=== PATIENT | male | born 1945 | race Two or more races ===

== ENCOUNTER 2020-08-03 | Outpatient (REF) | payer MEDICARE, MEDICAID, SELFPAY ==
[2020-08-04 14:48] LABS: FIT1 NEGATIVE (NEGATIVE)
[2020-08-04 14:49] LABS: FIT Int Ctl YES; FIT2 NEGATIVE (NEGATIVE)
== END 2020-08-03 00:01 | disposition home or self-care (01) ==
LOC: HO.LNP
PROVIDERS: Visit Provider Internal Medicine
DX: Z12.11 Encounter for screening for malignant neoplasm of colon (principal)
CPT/HCPCS: 82274

== ENCOUNTER 2020-08-04 08:30 | Outpatient (REF) | payer MEDICARE, MEDICAID, SELFPAY ==
[2020-08-04 11:20] LABS: MANUAL DIFF FLAG NO
[2020-08-04 11:28] LABS: Basophils Percent Auto 0.5 % (0-2); Eosinophils Absolute Auto 0.2 X10*3/uL (0.0-0.4); Eosinophils Percent Auto 4.2 % (0-4); Hematocrit 38.7 % (42-52); Hemoglobin 12.6 g/dl (14.0-18.0); Imm Gran Abs Auto 0.02 X10*3/uL (0.00-0.03); Imm Gran Pct Auto 0.4 % (0.0-0.4); Lymphocytes Absolute Auto 2.2 X10*3/uL (1.2-4.9); Mean Corpuscular HGB Conc 32.6 g/dl (31.0-36.0); Mean Corpuscular Hemoglobin 29.2 pg (27.0-33.0); Mean Corpuscular Volume 89.8 fL (80-98); Mean Platelet Volume 12.4 fL (9.4-12.4); Monocytes Absolute Auto 0.6 X10*3/uL (0.1-1.2); Monocytes Percent Auto 10.1 % (2-11); Neutrophils Absolute Auto 2.6 X10*3/uL (2.0-8.3); Neutrophils Percent Auto 45.8 % (45-73); Platelet Count 179 X10*3/uL (160-400); Red Blood Count 4.31 X10*6/uL (4.60-5.80); Red Cell Distribution Width 12.3 % (11.0-16.0); White Blood Count 5.7 X10*3/uL (4.8-10.8)
[2020-08-04 12:05] LABS: Creatinine Urine 72.37 mg/dL; Microalbumin Urine < 5.0 mg/L
[2020-08-04 12:08] LABS: Alanine Aminotransferase 14 U/L (0-40); Albumin Level 4.3 g/dL (3.5-5.0); Alkaline Phosphatase 51 U/L (39-117); Anion Gap 11 (12-20); Aspartate Amino Transferase 15 U/L (5-37); Bilirubin Total 0.6 mg/dL (0.0-1.0); Blood Urea Nitrogen 15 mg/dL (9-16); Calcium 9.7 mg/dL (8.4-10.2); Carbon Dioxide 31 mmol/L (22-29); Chloride 101 mmol/L (96-108); Cholesterol 158 mg/dL; Estimated Glomerular Filt Rate > 60; Glucose Fasting 102 mg/dL (60-99); HDL Cholesterol 74 mg/dL; LDL Cholesterol Calculated 73 mg/dl; Potassium 4.3 mmol/L (3.3-5.1); Sodium 139 mmol/L (135-145); Total Protein 7.2 g/dL (6.5-8.0); Triglycerides 58 mg/dL
[2020-08-04 12:09] LABS: TSH reflex Free T4 2.88 uIU/mL (0.32-4.0); Vitamin D 25-OH Total 27.2 ng/mL (>30)
[2020-08-04 12:38] LABS: Folate 10.7 ng/mL (> or = 4.0); Vitamin B12 < 146 pg/mL (200-900)
== END 2020-08-04 08:31 | disposition home or self-care (01) ==
LOC: HO.HMGCLDS 08:30
PROVIDERS: PCP Internal Medicine; Visit Provider Internal Medicine
DX: Z00.01 Encounter for general adult medical examination with abnormal findings (principal); G62.1 Alcoholic polyneuropathy; I10 Essential (primary) hypertension; E78.5 Hyperlipidemia, unspecified; I69.30 Unspecified sequelae of cerebral infarction; E11.9 Type 2 diabetes mellitus without complications
CPT/HCPCS: 36415; 80053; 80061; 82043; 82306; 82607; 82746; 84443; 85025

== ENCOUNTER 2020-08-05 13:03 | Emergency (ER) | payer MEDICARE, MEDICAID, SELFPAY ==
--- NOTE | ~2020-08-05 | XR_ITS ---
EXAMINATION: XR FOOT, LEFT CLINICAL INFORMATION: Atraumatic pain fifth metatarsal COMPARISON: Left foot 11/18/2018 TECHNIQUE: AP, lateral, and oblique views of the left foot. FINDINGS: The bones and soft tissues are normal aside from some generalized osteopenia. No fracture. Alignment is anatomic. Joint spaces are maintained. Extensive vascular calcifications are present. Compared to the study from 11/18/2018 is been no interval change. XR/XR foot LT min 3V IMPRESSION: No acute finding to account for the fifth metatarsal foot pain.
[2020-08-05 13:06] VITALS: BP 130/57; PULSE 75; RESP 18; TEMP 37.1; O2SAT 99; BMI 29.0
--- NOTE | 2020-08-05 13:32 | PC.NURSE ---
transported via , halfway staff at bedside, self transfered from wc to recliner, legs elevated, +pp
[2020-08-05] MEDS: traMADoL HCL 50 MG TABLET PO (14:13)
--- NOTE | 2020-08-05 14:20 | ED.EXTPRO ---
HPI - Extremity Problem General Chief complaint: Extremity Problem Stated complaint: foot pain Time Seen by Provider: 08/05/20 13:46 Source: patient and other (detention staff member) Mode of arrival: wheelchair Limitations: language barrier (Ukrainian speaking ) History of Present Illness HPI Narrative: 75yoM c PMHx of CVA with residual deficit, gait instability, alcohol induced follow neuropathy, type 2 diabetes, hypertension, dyslipidemia and Arthralgia presenting to the ED with complaints of acute on chronic left foot pain worse since last night despite taking his prescribed Mobic. Staff member at bedside reports that he had a cortisone injection a few months ago. Denies any fevers, chills or any other symptoms complaints or concerns at this time. MD Complaint: extremity pain Onset (ago): day(s) (Worse since last night) Pain Consistency: constant Location: left Quality: aching Radiation: none Relieving factors: nothing Associated symptoms: other (Weight-bearing) Related Data Home Medications Medication Instructions Recorded Confirmed COVID-19 vacc,mRNA(Pfizer)(PF) 30 ml IM 08/03/20 08/03/20 mcg/0.3 mL IM susp (EUA) acetaminophen 650 mg 650 mg PO Q8H 08/03/20 08/03/20 tablet,extended release dextromethorphan-guaifenesin 10 2 tab-cap PO Q6H PRN 08/03/20 08/03/20 mg-200 mg capsule finasteride 5 mg tablet 5 mg PO DAILY 08/03/20 08/03/20 magnesium hydroxide 400 mg/5 mL 1,200 mg PO DAILY PRN ml 08/03/20 08/03/20 oral suspension mirabegron 50 mg tablet,extended 50 mg PO DAILY 08/03/20 08/03/20 release 24 hr pen needle, diabetic 31 gauge x #50 ea 08/03/20 08/03/20 1/4 terazosin 10 mg capsule 10 mg PO DAILY 08/03/20 08/03/20 Previous Rx's Medication Instructions Recorded aspirin 81 mg tablet,delayed 81 mg PO QAM #28 tab 03/28/20 release meloxicam 7.5 mg tablet 7.5 mg PO DAILY PRN #30 tab 03/28/20 sennosides 8.6 mg tablet 17.2 mg PO BEDTIME PRN #56 tab 03/28/20 gabapentin 100 mg capsule 200 mg PO BEDTIME #56 cap 05/08/20 lisinopril 5 mg tablet 5 mg PO DAILY #28 tab 05/08/20 metformin 1,000 mg tablet 1,000 mg PO BID #56 tab 05/08/20 docusate sodium 100 mg capsule 200 mg PO QAM #56 cap 06/05/20 insulin degludec 100 unit/mL (3 38 unit SUBCUT QAM #15 ml 07/30/20 mL) subcutaneous pen atorvastatin 10 mg tablet 10 mg PO BEDTIME #28 tab 08/01/20 blood sugar diagnostic #100 ea 08/02/20 cephalexin 500 mg PO BID 10 Days #20 cap 08/05/20 doxycycline monohydrate 100 mg PO BID 10 Days #20 cap 08/05/20 tramadol 50 mg PO BID PRN #14 tab 08/05/20 Allergies Allergy/AdvReac Type Severity Reaction Status Date / Time No Known Allergies Allergy Verified 08/05/20 13:18 [No Known Allergies*] Review of Systems Review of Systems: Constitutional : No trauma, No Weight loss, No Fever, No Chills, ENT/Mouth : No Hearing loss, No Ear Pain, No Nasal Congestion, No Sinus Pain, No Hoarseness, No sore throat, No Rhinorrhea, No Swallowing Difficulty Cardiovascular : No Chest Pain, No SOB Respiratory : No Cough, No Dyspnea Gastrointestinal : No Nausea, No Vomiting, No Diarrhea, No abdominal Pain, No Hematochezia, No Melena Genitourinary : No Dysuria, No Urinary Frequency, No Hematuria, No Urinary or Bowel Incontinence/retention Musculoskeletal : + Joint pain, No Back pain, No neck pain, No joint stiffness, No joint swelling Skin : No Skin Lesions, No rash or signs of infection Neuro : No Weakness, No radiation, No Numbness, No Paresthesias, No headache, no loss of bowel or bladder incontinence, no saddle anesthesia, Focal weakness, No radiation Denies history of IV drug usage. Yes all other systems are reviewed and are negative PMFSH Past Medical History Attestation statement: The following information was validated with the patient. Medical History Alcohol-induced polyneuropathy Arthralgia Dyslipidemia Encounter for general adult medical examination with abnormal findings Essential hypertension Gait instability History of CVA with residual deficit Surgical History History of ventral hernia repair Hx of cholecystectomy Family History Family History Father Unknown family medical history Mother Unknown family medical history Social History Social History Alcohol intake: never Smoking Status: Never smoker Advance Directives: No Advance Directives Information Provided: Yes Physical Exam Vital Signs: Vital Signs: Last Vital Signs Temp 98.7 F 08/05/20 13:06 Pulse 75 08/05/20 13:06 Resp 18 08/05/20 13:06 BP 130/57 L 08/05/20 13:06 Pulse Ox 99 08/05/20 13:06 Body Mass Index 29.0 vital signs have been reviewed as normal and appeared to be correct. Blood pressure normal. Heart rate normal. Respiration rate normal. Temperature normal. Oxygen saturation normal. Appearance: Alert. Oriented X3. No acute distress. Head: Normal external exam. Normocephalic. Atraumatic. Eyes: PERRLA. EOMI. Conjunctiva and sclera normal. Eyelids normal. ENT: Pharynx normal. Uvula midline. Moist mucous membranes. Neck: Normal inspection. Neck supple. FROM. No adenopathy. No meningeal signs. CVS: Normal heart rate and rhythm. Pulses normal throughout. Respiratory: No respiratory distress. Painless inspiration. Back: No CVA tenderness. Full range of motion noted. Skin: Skin warm and dry. Normal skin color. Normal skin turgor. No rashes/lesions/lacerations noted. Extremities: To the 5th metatarsal/5th toe patient is noted to have moderate tenderness to palpation mild erythema. No fluctuance/induration/streaking/ecchymosis/abrasion/lacerations or foreign bodies noted. No lower extremity edema. No calf tenderness noted. Otherwise all other Extremities exhibit normal range of motion and nontender. Neuro: Oriented X 3. No motor deficit. No sensory deficit. Reflexes normal. Course Course Course Narrative: 2:30pm - 75yoM c PMHx of CVA with residual deficit, gait instability, alcohol induced follow neuropathy, type 2 diabetes, hypertension, dyslipidemia and Arthralgia presenting to the ED with complaints of acute on chronic left foot pain worse since last night despite taking his prescribed Mobic. Staff member at bedside. - on exam patient is ordered to have tenderness to palpation to left metatarsal/5th toe with mild erythema. No streaking/induration/fluctuance/foreign bodies/lacerations or abrasions noted. - x-ray obtained and revealed chronic changes no acute processes noted. - will DC home with antibiotics for possible cellulitis infection along with symptomatic treatment with tramadol and instructions return if any new or worsening symptoms or to follow up with primary care provider. Patient and staff at bedside understand and agree with plan. MDM - Extremity (Nontraumatic) Differential Diagnosis Differential diagnosis: Likely gout and cellulitis Medical Records Attestation: I reviewed the patient's medical records. Imaging Data Left foot x-ray: Attestation: I personally reviewed and interpreted this imaging study as follows: Radiologist's impression: FINDINGS: The bones and soft tissues are normal aside from some generalized osteopenia. No fracture. Alignment is anatomic. Joint spaces are maintained. Extensive vascular calcifications are present. Compared to the study from 11/18/2018 is been no interval change. XR/XR foot LT min 3V IMPRESSION: No acute finding to account for the fifth metatarsal foot pain. Discharge Plan Discharge Clinical Impression: Chronic pain in left foot, Cellulitis of foot, left Patient Disposition: Home, Self-Care Instructions: Cellulitis (ED) Prescriptions: New tramadol 50 mg tablet 50 mg PO BID PRN (Reason: pain) Qty: 14 RF: 0 doxycycline monohydrate 100 mg capsule 100 mg PO BID 10 Days Qty: 20 RF: 0 cephalexin 500 mg capsule 500 mg PO BID 10 Days Qty: 20 RF: 0 No Action aspirin 81 mg tablet,delayed release (DR/EC) 81 mg PO QAM Qty: 28 RF: 8 sennosides [senna] 8.6 mg tablet 17.2 mg PO BEDTIME PRN (Reason: constipation) Qty: 56 RF: 5 meloxicam 7.5 mg tablet 7.5 mg PO DAILY PRN (Reason: for joint pain) Qty: 30 RF: 2 metformin 1,000 mg tablet 1,000 mg PO BID Qty: 56 RF: 6 lisinopril 5 mg tablet 5 mg PO DAILY Qty: 28 RF: 8 gabapentin 100 mg capsule 200 mg PO BEDTIME Qty: 56 RF: 8 docusate sodium 100 mg capsule 200 mg PO QAM Qty: 56 RF: 8 insulin degludec [Tresiba FlexTouch U-100] 100 unit/mL (3 mL) insulin pen 38 unit subcut QAM Qty: 15 RF: 5 atorvastatin 10 mg tablet 10 mg PO BEDTIME Qty: 28 RF: 3 (DME) Contour Next Test Strips Strip See Rx Instructions .ROUTE .MEDSUPPLY Qty: 100 RF: 3 finasteride 5 mg tablet 5 mg PO DAILY RF: 0 terazosin 10 mg capsule 10 mg PO DAILY RF: 0 Myrbetriq 50 mg tablet extended release 24 hr 50 mg PO DAILY RF: 0 Dispop COVID-19 Vaccine (EUA) 30 mcg/0.3 mL suspension for reconstitution IM RF: 0 (DME) pen needle, diabetic 31 gauge x 1/4 needle See Rx Instructions ea .ROUTE .MEDSUPPLY Qty: 50 RF: 0 acetaminophen 650 mg tablet extended release 650 mg PO Q8H RF: 0 dextromethorphan-guaifenesin 10-200 mg capsule 2 tab-cap PO Q6H PRNRF: 0 magnesium hydroxide [[place] Milk of Magnesia] 400 mg/5 mL suspension 1,200 mg PO DAILY PRNRF: 0 Referrals: Nora Castillo MD [Primary Care Provider] - 2 days (Your PCP) Print Language: Upper Sorbian
== END 2020-08-05 14:51 | disposition home or self-care (01) ==
PROVIDERS: Emergency Provider Emergency Medicine Emergency Medical Services; PCP Internal Medicine
DX: G89.29 Other chronic pain (principal); M79.672 Pain in left foot; L03.116 Cellulitis of left lower limb; I10 Essential (primary) hypertension; Z86.73 Personal history of transient ischemic attack (TIA), and cerebral infarction without residual deficits
CPT/HCPCS: 73630; 99283

== ENCOUNTER 2020-11-01 08:32 | Outpatient (REF) | payer MEDICARE, MEDICAID, SELFPAY ==
[2020-11-01 11:18] LABS: MANUAL DIFF FLAG NO
[2020-11-01 11:37] LABS: Basophils Absolute Auto 0.1 X10*3/uL (0.0-0.2); Basophils Percent Auto 0.8 % (0-2); Eosinophils Absolute Auto 0.2 X10*3/uL (0.0-0.4); Eosinophils Percent Auto 2.5 % (0-4); Hematocrit 37.4 % (42-52); Imm Gran Abs Auto 0.03 X10*3/uL (0.00-0.03); Imm Gran Pct Auto 0.5 % (0.0-0.4); Lymphocytes Absolute Auto 1.3 X10*3/uL (1.2-4.9); Lymphocytes Percent Auto 20.8 % (20-40); Mean Corpuscular HGB Conc 32.1 g/dl (31.0-36.0); Mean Corpuscular Hemoglobin 29.2 pg (27.0-33.0); Monocytes Absolute Auto 0.5 X10*3/uL (0.1-1.2); Monocytes Percent Auto 7.9 % (2-11); Neutrophils Absolute Auto 4.3 X10*3/uL (2.0-8.3); Neutrophils Percent Auto 67.5 % (45-73); Platelet Count 185 X10*3/uL (160-400); Red Blood Count 4.11 X10*6/uL (4.60-5.80); Red Cell Distribution Width 12.8 % (11.0-16.0); White Blood Count 6.4 X10*3/uL (4.8-10.8)
[2020-11-01 12:01] LABS: Estimated Average Glucose 143 mg/dL; Hemoglobin A1c % 6.6 %
[2020-11-01 12:06] LABS: Alanine Aminotransferase 15 U/L (0-40); Aspartate Amino Transferase 14 U/L (5-37); Cholesterol 147 mg/dL; HDL Cholesterol 71 mg/dL; LDL Cholesterol Calculated 64 mg/dl; Triglycerides 60 mg/dL
[2020-11-01 12:27] LABS: Vitamin D 25-OH Total 70.9 ng/mL (>30)
[2020-11-01 12:30] LABS: Folate 9.1 ng/mL (> or = 4.0); Vitamin B12 192 pg/mL (200-900)
== END 2020-11-01 08:33 | disposition home or self-care (01) ==
LOC: HO.HMGCLDS 08:32
PROVIDERS: PCP Internal Medicine; Visit Provider Internal Medicine
DX: E53.8 Deficiency of other specified B group vitamins (principal); I10 Essential (primary) hypertension; E78.5 Hyperlipidemia, unspecified; E11.9 Type 2 diabetes mellitus without complications; E55.9 Vitamin D deficiency, unspecified
CPT/HCPCS: 36415; 80061; 82306; 82607; 82746; 83036; 84450; 84460; 85025

== ENCOUNTER 2021-03-13 07:35 | Outpatient (REF) | payer MEDICARE, MEDICAID, SELFPAY ==
[2021-03-13 11:36] LABS: MANUAL DIFF FLAG NO
[2021-03-13 11:50] LABS: Basophils Percent Auto 0.7 % (0-2); Eosinophils Absolute Auto 0.2 X10*3/uL (0.0-0.4); Hematocrit 35.1 % (42-52); Hemoglobin 11.4 g/dl (14.0-18.0); Imm Gran Abs Auto 0.03 X10*3/uL (0.00-0.03); Imm Gran Pct Auto 0.5 % (0.0-0.4); Lymphocytes Absolute Auto 2.1 X10*3/uL (1.2-4.9); Mean Corpuscular HGB Conc 32.5 g/dl (31.0-36.0); Mean Corpuscular Hemoglobin 29.2 pg (27.0-33.0); Mean Platelet Volume 11.9 fL (9.4-12.4); Monocytes Absolute Auto 0.6 X10*3/uL (0.1-1.2); Monocytes Percent Auto 11.1 % (2-11); Neutrophils Absolute Auto 2.8 X10*3/uL (2.0-8.3); Neutrophils Percent Auto 48.7 % (45-73); Platelet Count 197 X10*3/uL (160-400); Red Cell Distribution Width 12.4 % (11.0-16.0); White Blood Count 5.7 X10*3/uL (4.8-10.8)
[2021-03-13 12:40] LABS: Alanine Aminotransferase 9 U/L (0-40); Anion Gap 12 (12-20); Aspartate Amino Transferase 11 U/L (5-37); Blood Urea Nitrogen 14 mg/dL (9-16); Calcium 9.1 mg/dL (8.4-10.2); Carbon Dioxide 27 mmol/L (22-29); Chloride 106 mmol/L (96-108); Cholesterol 138 mg/dL; Estimated Glomerular Filt Rate > 60; Glucose Fasting 76 mg/dL (60-99); HDL Cholesterol 63 mg/dL; Iron 43 mcg/dL (45-160); LDL Cholesterol Calculated 66 mg/dl; Percent Iron Saturation 16 % (15-50); Potassium 4.4 mmol/L (3.3-5.1); Sodium 141 mmol/L (135-145); Total Iron Binding Capacity 275 mcg/dL (228-428); Triglycerides 49 mg/dL; Unsaturated Iron Binding 232 ug/dL
[2021-03-13 13:01] LABS: Vitamin B12 163 pg/mL (200-900)
== END 2021-03-13 07:36 | disposition home or self-care (01) ==
LOC: HO.HMGCLDS 07:35
PROVIDERS: PCP Internal Medicine; Visit Provider Internal Medicine
DX: D64.9 Anemia, unspecified (principal); E11.9 Type 2 diabetes mellitus without complications; E53.8 Deficiency of other specified B group vitamins; E78.5 Hyperlipidemia, unspecified; G62.1 Alcoholic polyneuropathy; I10 Essential (primary) hypertension
CPT/HCPCS: 36415; 80048; 80061; 82607; 82746; 83540; 84450; 84460; 85025

== ENCOUNTER 2021-08-21 08:25 | Outpatient (REF) | payer MEDICARE, MEDICAID, SELFPAY ==
[2021-08-21 11:31] LABS: MANUAL DIFF FLAG NO
[2021-08-21 11:56] LABS: Basophils Percent Auto 0.8 % (0-2); Eosinophils Absolute Auto 0.2 X10*3/uL (0.0-0.4); Eosinophils Percent Auto 4.2 % (0-4); Estimated Average Glucose 151 mg/dL; Hematocrit 38.2 % (42.0-52.0); Hemoglobin 12.4 g/dl (14.0-18.0); Hemoglobin A1c % 6.9 %; Imm Gran Abs Auto 0.02 X10*3/uL (0.00-0.03); Imm Gran Pct Auto 0.4 % (0.0-0.4); Lymphocytes Percent Auto 37.5 % (20-40); Mean Corpuscular HGB Conc 32.5 g/dl (31.0-36.0); Mean Corpuscular Hemoglobin 29.5 pg (27.0-33.0); Mean Corpuscular Volume 90.7 fL (80.0-98.0); Mean Platelet Volume 12.3 fL (9.4-12.4); Monocytes Absolute Auto 0.5 X10*3/uL (0.1-1.2); Monocytes Percent Auto 10.2 % (2-11); Neutrophils Absolute Auto 2.4 x10*3/uL (2.0-8.3); Neutrophils Percent Auto 46.9 % (45-73); Platelet Count 162 X10*3/uL (160-400); Red Blood Count 4.21 X10*6/uL (4.60-5.80); Red Cell Distribution Width 12.8 % (11.0-16.0); White Blood Count 5.2 X10*3/uL (4.8-10.8)
[2021-08-21 12:00] LABS: Alanine Aminotransferase 11 U/L (0-40); Anion Gap 17 (12-20); Aspartate Amino Transferase 16 U/L (5-37); Blood Urea Nitrogen 13 mg/dL (9-16); Calcium 9.9 mg/dL (8.4-10.2); Carbon Dioxide 26 mmol/L (22-29); Chloride 101 mmol/L (96-108); Cholesterol 145 mg/dL; Estimated Glomerular Filt Rate > 60; Glucose Fasting 101 mg/dL (60-99); HDL Cholesterol 69 mg/dL; Iron 72 mcg/dL (45-160); LDL Cholesterol Calculated 65 mg/dl; Percent Iron Saturation 22 % (15-50); Potassium 4.6 mmol/L (3.3-5.1); Sodium 139 mmol/L (135-145); Total Iron Binding Capacity 326 mcg/dL (228-428); Triglycerides 56 mg/dL; Unsaturated Iron Binding 254 ug/dL
[2021-08-21 12:02] LABS: Microalbumin Urine < 5.0 mg/L
[2021-08-21 12:14] LABS: Vitamin D 25-OH Total 61.7 ng/mL (>30)
[2021-08-21 12:42] LABS: Folate 8.9 ng/mL (> or = 4.0); Vitamin B12 172 pg/mL (200-900)
== END 2021-08-21 08:26 | disposition home or self-care (01) ==
LOC: HO.HMGCLDS 08:25
PROVIDERS: Visit Provider Internal Medicine
DX: D64.9 Anemia, unspecified (principal); E55.9 Vitamin D deficiency, unspecified; E53.8 Deficiency of other specified B group vitamins; G62.1 Alcoholic polyneuropathy; I10 Essential (primary) hypertension; E11.9 Type 2 diabetes mellitus without complications
CPT/HCPCS: 36415; 80048; 80061; 82043; 82306; 82607; 82746; 83036; 83540; 84450; 84460; 85025

== ENCOUNTER 2021-12-12 11:35 | Outpatient (REF) | payer MEDICARE, MEDICAID, SELFPAY ==
--- NOTE | ~2021-12-12 | XR_ITS ---
EXAMINATION: RIGHT HAND AND WRIST X-RAY CLINICAL INFORMATION: Pain COMPARISON: None TECHNIQUE: 3 views of the right hand and wrist FINDINGS: No acute fracture or dislocation is seen. There is evidence of an old healed fracture of the fifth metacarpal bone and proximal phalanx. The joint spaces are normal. There is soft tissue arterial calcification. XR/XR hand wrist RT IMPRESSION: Old trauma to the fifth finger otherwise unremarkable exam.
== END 2021-12-12 11:36 | disposition home or self-care (01) ==
LOC: HO.HMGCX 11:35
PROVIDERS: Visit Provider Internal Medicine
DX: M25.531 Pain in right wrist (principal); M25.431 Effusion, right wrist
CPT/HCPCS: 73110; 73130

== ENCOUNTER 2022-03-27 13:38 | Outpatient (AMB) | payer MEDICARE, MEDICAID, SELFPAY ==
--- NOTE | 2022-03-25 11:15 | A.OFFVIS_ITS ---
Intake Intake Visit Reasons: Follow up PVR / NS last appt Intake Note: Patient is present for PVR Follow Up Current Medication: Finasteride, Myrbetriq, Terazosin Blood Thinners: Aspirin Post Void Residual: 0ml Patient was unable to provide specimen Rn Eligibility Required: No Accompanied by: Self / Same As Patient Allergies No Known Allergies [No Known Allergies*] Allergy (Verified 05/13/23 13:17) Medication List - Last Reconciled 03/27/22 by Miles Sims MD acetaminophen ER ([place] Arthritis Pain) 650 mg PO Q8H aspirin 81 mg PO QAM atorvastatin 10 mg PO BEDTIME blood sugar diagnostic (Contour Next Test Strips) use one strip twice a day to check blood sugar before meals cholecalciferol (vitamin D3) 50 mcg PO DAILY COVID-19 vacc,mRNA(Pfizer)(PF) mL IM cyanocobalamin (vitamin B-12) 1,000 mcg IM Q4W 30 days dextromethorphan-guaifenesin 10-200 mg 2 tab-caps (2 x 10-200 mg) PO Q6H PRN docusate sodium 200 mg (2 x 100 mg) PO QAM finasteride 5 mg PO DAILY 30 days gabapentin 600 mg PO BID indomethacin 25 mg PO BID PRN insulin degludec (Tresiba FlexTouch U-200 insulin) 38 units (0.19 mL) subcut QAM lisinopril 5 mg PO DAILY magnesium hydroxide ([place] Milk of Magnesia) 1,200 mg (15 mL) PO DAILY PRN meloxicam 7.5 mg PO DAILY metformin 1,000 mg PO BID 30 days mirabegron ER 50 mg PO DAILY 30 days pen needle, diabetic As directed sennosides (senna) 17.2 mg (2 x 8.6 mg) PO BEDTIME PRN sulfamethoxazole-trimethoprim 800-160 mg (Bactrim DS) 1 tab PO BID 7 days terazosin 10 mg PO DAILY 30 days HPI HPI Comments History of Present Illness Details Jose has a pleasant male. He is a patient of Dr. Castillo. Seen for the following urologic conditions - overactive bladder - incomplete bladder emptying BPH Resident of facility PVR 0 Bladder control Has urinary urge but able to make bathroom Occasional accidents Continue Myrbetriq, finasteride, terazosin Lower urinary tract symptoms - primarily overactive bladder with incomplete emptying Current medications include finasteride and Myrbetriq and terazosin Background insulin-dependent diabetes 0 HB A1c - 02/12 7.4% [facility] Medical History (Updated 06/17/23 @ 02:16 by Nora Castillo MD) Moderate to severe aortic stenosis Systolic murmur Diabetes mellitus, with long-term current use of insulin Impaired cognitive ability Anemia Nocturia Urinary urgency Acute cystitis without hematuria Weak urinary stream Incomplete emptying of bladder Vitamin D deficiency Encounter for general adult medical examination with abnormal findings Gait instability Alcohol-induced polyneuropathy Arthralgia Essential hypertension Dyslipidemia History of CVA with residual deficit Surgical History History of ventral hernia repair Hx of cholecystectomy Family History Father Unknown family medical history Mother Unknown family medical history Social History Housing: Assisted Living Facility Alcohol intake: never Patient Tobacco Use Status: Never used Tobacco e-Cigarette/Vaping Use: Never Used Second Hand Smoke Exposure: No Current occupational status: disabled Cognitive needs: No Hearing needs: Yes Vision needs: Yes Review of Systems Const Denies chills and Denies fever(s) Card Reports no additional complaints and Denies syncope Resp Denies cough GI Denies abdominal pain and Denies heartburn Reports as per HPI and Denies change in libido Neuro Denies syncope Psych Denies change in libido Endo Denies change in libido Physical Exam Const General: cooperative, healthy appearing, comfortable and no acute distress Orientation/consciousness: patient oriented x3 HEENT Face and sinus: Yes normal facial exam Mouth: moist mucous membranes Neck Neck: Yes normal visual inspection, Yes full ROM and Yes trachea midline Chest Chest palpation & inspection: normal inspection of the chest Resp Effort & Inspection: normal respiratory effort, able to speak in complete sentences and no respiratory distress GI Inspection: Yes normal to inspection Back/Spine/Pelvis Cervical Spine: normal cervical lordosis Thoracic/Lumbar Spine: thoracic and lumbar spine normal to inspection Skin General skin exam: no rashes or lesions noted Neuro General: patient oriented x3, gait normal, tone normal and moves all extremities Extrem General: Yes normal to inspection and Yes capillary refill normal Office Procedures Post Void Residual Post Residual Void Post Void Residual (PVR): 0 [id number]-[id number] Void Residual by ultrasound Assessment & Plan Assessment & Plan (1) Overactive bladder: Code(s): N32.81 - Overactive bladder (2) Incomplete emptying of bladder: Code(s): R33.9 - Retention of urine, unspecified (3) Nocturia: Code(s): R35.1 - Nocturia Plan Medications refilled 1 year follow-up Orders: Orders AMB Post Void Residual by ultrasound 03/27/22 R35.1 - Nocturia Medications: Changed From finasteride 5 mg PO DAILY 30 days 30 tabs 2RF To finasteride 5 mg PO DAILY 90 tabs 3RF 90 days From mirabegron ER 50 mg PO DAILY 30 days 30 tabs 2RF To mirabegron ER 50 mg PO DAILY 90 tabs 3RF 90 days From terazosin 10 mg PO DAILY 30 days 30 caps 2RF To terazosin 10 mg PO DAILY 90 caps 3RF 90 days Patient Instructions: The patient had an opportunity to ask questions regarding treatment plan. All questions were answered. Imaging studies, laboratory studies and physical exam results were discussed and reviewed in detail. No major barriers to understanding were identified. The patient expressed understanding and agreement with the above treatment plan. The patient is aware they should contact our office by phone for worsening of their current condition or the appearance of new symptoms. Compliance is encouraged with any medications and followup testing that is ordered. It is a privilege to be allowed the opportunity to participate in the urologic care of your patient. If you have any questions or concerns regarding treatment for the above conditions please do not hesitate to contact me. The office telephone contact is [phone]. This note is constructed using voice recognition software. While every effort has been made to ensure accuracy single needle tufting machine operator errors may have been included. Yours sincerely, Dr Miles Sims MD, [facility] Coding Level of Care Code Est Pt Level 4 (30397) Diagnoses Overactive bladder N32.81 Incomplete emptying of bladder R33.9 Nocturia R35.1 CPT Codes Post Residual Void - PVR CPT Code: 01122-Wmis Void Residual by ultrasound ([id number])
== END 2022-03-27 14:50 | disposition home or self-care (01) ==
LOC: HO.HUSH 13:38
PROVIDERS: PCP Internal Medicine; Visit Provider Urology
DX: N32.81 Overactive bladder (principal); R33.9 Retention of urine, unspecified; R35.1 Nocturia
CPT/HCPCS: 99214; 99499

== ENCOUNTER → 2022-03-27 13:38 | Outpatient (BNVA) | payer MEDICARE, MEDICAID, SELFPAY | PROVIDERS: PCP Internal Medicine; Visit Provider Urology | DX: Z13.89 Encounter for screening for other disorder (principal) | CPT/HCPCS: 51798; 99212 ==

== ENCOUNTER 2022-06-03 10:16 | Outpatient (REF) | payer MEDICARE, MEDICAID, SELFPAY ==
[2022-06-03 11:35] LABS: Estimated Average Glucose 183 mg/dL
[2022-06-03 12:29] LABS: Alanine Aminotransferase 14 U/L (0-40); Anion Gap 12 (12-20); Aspartate Amino Transferase 18 U/L (5-37); Blood Urea Nitrogen 12 mg/dL (9-16); Calcium 9.5 mg/dL (8.4-10.2); Carbon Dioxide 28 mmol/L (22-29); Chloride 102 mmol/L (96-108); Cholesterol 141 mg/dL; Estimated Glomerular Filt Rate > 60; Glucose Fasting 97 mg/dL (60-99); HDL Cholesterol 62 mg/dL; LDL Cholesterol Calculated 62 mg/dl; Potassium 4.7 mmol/L (3.3-5.1); Sodium 137 mmol/L (135-145); Triglycerides 85 mg/dL; Vitamin D 25-OH Total 51.8 ng/mL (>30)
[2022-06-03 12:37] LABS: Folate 15.8 ng/mL (> or = 4.0); Vitamin B12 242 pg/mL (200-900)
[2022-06-03 14:53] LABS: Creatinine Urine 123.05 mg/dL
== END 2022-06-03 10:17 | disposition home or self-care (01) ==
LOC: HO.HMGCLDS 10:16
PROVIDERS: PCP Internal Medicine; Visit Provider Internal Medicine
DX: E11.9 Type 2 diabetes mellitus without complications (principal); E53.8 Deficiency of other specified B group vitamins; E55.9 Vitamin D deficiency, unspecified; E78.5 Hyperlipidemia, unspecified; G62.1 Alcoholic polyneuropathy; I10 Essential (primary) hypertension; I69.30 Unspecified sequelae of cerebral infarction; R26.81 Unsteadiness on feet
CPT/HCPCS: 36415; 80048; 80061; 82043; 82306; 82607; 82746; 83036; 84450; 84460

== ENCOUNTER 2022-06-04 10:40 | Outpatient (AMB) | payer MEDICARE, MEDICAID, SELFPAY ==
--- NOTE | 2022-06-04 10:43 | A.OFFPC_ITS ---
Vital Signs 06/04/22 10:47 Height 5 ft 7 in Weight 193 lb BMI 30.2 BP 132/68 Blood Pressure Location Rt brachial Position Sitting Pulse 64 Pulse Source Pulse Oximeter Pulse Oximetry (%) 99 Oxygen Delivery Method Room Air Intake Visit Reasons: 6 month f/u Intake Note: Pt is here today for his 6 months f/u Allergies No Known Allergies [No Known Allergies*] Allergy (Verified 02/07/23 12:39) Medication List - Last Reconciled 06/04/22 by Nora Castillo MD aspirin 81 mg PO QAM atorvastatin 10 mg PO BEDTIME blood sugar diagnostic (Contour Next Test Strips) use one strip twice a day to check blood sugar before meals cholecalciferol (vitamin D3) 50 mcg PO DAILY cyanocobalamin (vitamin B-12) 1,000 mcg IM Q4W 30 days dextromethorphan-guaifenesin 10-200 mg 2 tab-caps (2 x 10-200 mg) PO Q6H PRN docusate sodium 200 mg (2 x 100 mg) PO QAM finasteride 5 mg PO DAILY 90 days gabapentin 600 mg PO BID insulin degludec (Tresiba FlexTouch U-200 insulin) 38 units (0.19 mL) subcut QAM lisinopril 5 mg PO DAILY magnesium hydroxide ([place] Milk of Magnesia) 1,200 mg (15 mL) PO DAILY PRN meloxicam 7.5 mg PO DAILY metformin 1,000 mg PO BID 30 days mirabegron ER 50 mg PO DAILY 90 days pen needle, diabetic As directed sennosides (senna) 17.2 mg (2 x 8.6 mg) PO BEDTIME PRN terazosin 10 mg PO DAILY 90 days Tobacco use date assessed: 06/04/22 Fall risk assessment: No Falls in past year Last assessed Fall Risk: 06/04/22 HPI 6 month f/u HPI Details 76-year-old male with dyslipidemia, diabetes mellitus, alcohol-induced polyneuropathy, history of overactive bladder and history of CVA with residual deficit, here today for six-month follow-up he currently lives in a assisted, has medications administered by a nurse. Has not been fully compliant with diet and no exercise at all due to gait stations and week in lower extremities. Re cent fasting labs showed normal electrolytes, lipid levels, vitamin-D level and liver enzymes but hemoglobin A1c is elevated at 8% [facility] Medical History (Updated 02/07/23 @ 12:48 by Nora Castillo MD) Acute cystitis without hematuria Alcohol-induced polyneuropathy Anemia Arthralgia Diabetes mellitus, with long-term current use of insulin Dyslipidemia Encounter for general adult medical examination with abnormal findings Essential hypertension Gait instability History of CVA with residual deficit Impaired cognitive ability Incomplete emptying of bladder Nocturia Urinary urgency Vitamin D deficiency Weak urinary stream Surgical History History of ventral hernia repair Hx of cholecystectomy Family History Father Unknown family medical history Mother Unknown family medical history Social History Housing: Assisted Living Facility Alcohol intake: never Patient Tobacco Use Status: Never used Tobacco e-Cigarette/Vaping Use: Never Used Second Hand Smoke Exposure: No Current occupational status: disabled Cognitive needs: No Hearing needs: Yes Vision needs: Yes Questionnaire Thrive Questionnaire Date Thrive assessed: 12/04/21 MEERA-7 AMB Questionnaire MEERA-7 Date MEERA - 7 assessed: 12/04/21 Source: Developed by Drs. Thierry Vela, Enriqueta Mosley, Isaías Mccloud and colleagues, with an educational hitesh from [employer]. Review of Systems Const Reports no additional complaints and Denies fever(s) Eyes Reports no additional complaints ENT Reports no additional complaints Card Denies chest pain, Denies syncope, Denies palpitations and Denies dyspnea Resp Denies chest congestion, Denies cough, Denies dyspnea and Denies wheezing GI Denies abdominal pain, Denies change in bowel habits and Denies heartburn Reports no additional complaints Musc Denies deformity, Reports muscle weakness ( bilateral legs) and Reports stiffness Skin/Breast Denies new lesions and Denies rash Neuro Reports no additional complaints, Reports as per HPI, Reports Abnormal speech present and Denies syncope Endo Denies polydipsia, Denies polyuria and Denies palpitations Alen/Lymph Denies easy bruising Aller/Immun Denies seasonal rhinorrhea and Denies wheezing Physical exam (Primary Care) Vital Signs: Last Vital Signs Pulse 64 06/04/22 10:47 BP 132/68 06/04/22 10:47 Pulse Ox 99 06/04/22 10:47 Oxygen Delivery Method Room Air 06/04/22 10:47 BMI result Body Mass Index 30.2 Tobacco/Smoking Status: Tobacco use Status Tobacco use date assessed 06/04/22 06/04/22 10:46 Patient Tobacco Use Status Never used Tobacco 06/04/22 10:46 e-Cigarette/Vaping Use Never Used 06/04/22 10:46 Thrive Assessment: Date of Thrive Assessment Date Thrive assessed 12/04/21 06/04/22 10:46 Advance Care Planning discussion: Exists, not on file Const Other: Awake, able to answer simple questions, has garbled speech, accompanied by caregiver, wheelchair borne General: comfortable, no acute distress and other (Wheelchair borne, stands for short amounts of time with assistance) Nutritional Appearance: obese Limitations: language barrier (Garbled speech), physical limitations and wheelchair HENMT Head: Yes normocephalic Ears: external ears normal General nose exam: Normal external nose present Face and sinus: Yes face symmetric Mouth: Normal oral and palatal mucosa present Teeth and gingiva: edentulous Eyes General: appearance normal, both eyes and all related structures Neck Neck: Yes full ROM, Yes no lymphadenopathy and Yes supple Resp Effort & Inspection: normal respiratory effort Auscultation: clear to auscultation bilaterally Cardio Rate: regular rate Rhythm: regular rhythm Heart sounds: S1 normal heart sound present and S2 normal heart sound present GI Inspection: Yes obesity Palpation (GI): Soft to palpation, nontender, no guarding and no masses Auscultation: normal bowel sounds General: Yes no CVA tenderness Back/Spine/Pelvis Back: no CVA tenderness Skin General skin exam: no rashes or lesions noted Neuro General: CN's II-XI intact bilaterally Speech: Abnormal speech present Gait exam (Neuro): Assisted gait required Gait assisted method: wheelchair bound Extrem Other: No gross bone deformity, crepitus noted in both knees Results Reviewed Results Reviewed: ENTERED: 06/03/22-1020 KEE HURD: ORDERED: Met Prof Fast, AST, ALT, Lipid Panel, Vitamin D 25-OH Test Result Flag Reference Site Sodium 137 135-145 mmol/L Potassium 4.7 3.3-5.1 mmol/L CL 102 96-108 mmol/L CO2 28 22-29 mmol/L Gap 12 12-20 BUN 12 9-16 mg/dL Creat 1.13 0.5-1.4 mg/dL EGFR > 60 NOTE: For -[place] individuals, multiply the result by 1.210. Chronic Kidney Disease: Estimated GFR < 60 mL/min/1.73m2 Severe Kidney Disease: Estimated GFR < 15 mL/min/1.73m2 FBS 97 60-99 mg/dL CA 9.5 8.4-10.2 mg/dL AST (GOT) 18 5-37 U/L ALT (GPT) 14 0-40 U/L Triglyceride 85 mg/dL Desirable Triglyceride: less than 150 mg/dL Borderline High Triglyceride 150-199 mg/dL High Triglyceride: 200-499 mg/dL Very High Triglyceride: greater than or equal to 5OO mg/dL Chol 141 mg/dL Desirable Cholesterol: less than 200 mg/dL Borderline High Cholesterol: 200-239 mg/dL High Cholesterol: greater than 239 mg/dL LDL Calculated 62 mg/dl Desirable LDL: less than 100 mg/dL Near Optimal/Above Optimal LDL: 110-129 mg/dL Borderline High LDL: 130-159 mg/dL High LDL: 160-189 mg/dL Very High LDL: greater than or equal to 190 mg/dL HDL 62 mg/dL Desirable HDL: greater than 40 mg/dL Note: This HDL assay may give artificially low results in patients with liver disease. Vit D 25-OH Tot 51.8 >30 ng/mL Health Based Reference Values* < 20 ng/mL Deficient 20-30 ng/mL Insufficient > 30 ng/mL Sufficient Laboratory Tests 06/03/22 06/03/22 10:22 12:00 Estimat Average Glucose 183 Hemoglobin A1c % 8.0 Urine Creatinine 123.05 Urine Microalbumin 16.0 Microalb/Creat Ratio 13.0 Assessment and Plan Assessment & Plan (1) Type 2 diabetes mellitus with hyperglycemia: Code(s): E11.65 - Type 2 diabetes mellitus with hyperglycemia Plan: Recent lab results reviewed with patient, with sugar and hemoglobin A1c not at goal. Advised to continue to check fasting blood sugar at home, maintain log and bring to next appointment for review. Increased Tresiba dose to 42 units daily in a.m. continue a continue with metformin a 1000 mg twice a day. Reinforced diabetic diet and regular exercise with patient. Counseled regarding importance of yearly diabetes retinopathy screening. Patient advised to inspect feet daily, for any signs of injury, callus or infection. Compliance with diet and regular exercise again stressed. Blood pressure goal is less than 130/80, goal LDL is less than 100 and goal hemoglobin A1c is less than 7% follow-up appointment made in-3--months, after fasting labs done. (2) Dyslipidemia: Code(s): E78.5 - Hyperlipidemia, unspecified Plan: Reviewed recent fasting lipid profile with patient with levels within normal limits . Continue with atorvastatin 10 mg daily , in addition to adherence to low-cholesterol diet and regular exercise, at least 30 minutes 3 to 4 times a week. Advised patient to make healthy food choices, eat more fruits, vegetables, whole grains, wild caught fish and low-fat dairy. Limit amount of meat and fried or fatty food products, as well as processed foods and fast foods. Follow-up scheduled with repeat fasting lipid panel in 3 months. (3) Essential hypertension: Code(s): I10 - Essential (primary) hypertension Plan: Blood pressure stable controlled on lisinopril, (4) History of CVA with residual deficit: Code(s): I69.30 - Unspecified sequelae of cerebral infarction Plan: Continue aspirin 81 mg daily Orders: Orders Alanine Aminotransferase 3 Months E11.65 - Type 2 diabetes mellitus with hyperglycemia, E55.9 - Vitamin D deficiency, unspecified, E53.8 - Deficiency of other specified B group vitamins, I10 - Essential (primary) hypertension, E78.5 - Hyperlipidemia, unspecified Aspartate Amino Transferase 3 Months E11.65 - Type 2 diabetes mellitus with hyperglycemia, E55.9 - Vitamin D deficiency, unspecified, E53.8 - Deficiency of other specified B group vitamins, I10 - Essential (primary) hypertension, E78.5 - Hyperlipidemia, unspecified Vitamin B12 and Folate 3 Months E11.65 - Type 2 diabetes mellitus with hyperglycemia, E55.9 - Vitamin D deficiency, unspecified, E53.8 - Deficiency of other specified B group vitamins, I10 - Essential (primary) hypertension, E78.5 - Hyperlipidemia, unspecified Basic Metabolic Panel Fasting 3 Months E11.65 - Type 2 diabetes mellitus with hyperglycemia, E55.9 - Vitamin D deficiency, unspecified, E53.8 - Deficiency of other specified B group vitamins, I10 - Essential (primary) hypertension, E78.5 - Hyperlipidemia, unspecified Hemoglobin A1c 3 Months E11.65 - Type 2 diabetes mellitus with hyperglycemia, E55.9 - Vitamin D deficiency, unspecified, E53.8 - Deficiency of other specified B group vitamins, I10 - Essential (primary) hypertension, E78.5 - Hyperlipidemia, unspecified Lipid Panel 3 Months E11.65 - Type 2 diabetes mellitus with hyperglycemia, E55.9 - Vitamin D deficiency, unspecified, E53.8 - Deficiency of other specified B group vitamins, I10 - Essential (primary) hypertension, E78.5 - Hyperlipidemia, unspecified Vitamin D 25-OH Total 3 Months E11.65 - Type 2 diabetes mellitus with hyperglycemia, E55.9 - Vitamin D deficiency, unspecified, E53.8 - Deficiency of other specified B group vitamins, I10 - Essential (primary) hypertension, E78.5 - Hyperlipidemia, unspecified Microalbumin, Random (w Creat) 3 Months E11.65 - Type 2 diabetes mellitus with hyperglycemia, E55.9 - Vitamin D deficiency, unspecified, E53.8 - Deficiency of other specified B group vitamins, I10 - Essential (primary) hypertension, E78.5 - Hyperlipidemia, unspecified Coding Level of Care Code Est Pt Level 4 (44016) Diagnoses Type 2 diabetes mellitus with hyperglycemia E11.65 Dyslipidemia E78.5 Essential hypertension I10 History of CVA with residual deficit I69.30 Additional Codes Vital Signs *Quality* - Advance Care Planning discussion: Exists, not on file ([id number])
[2022-06-04 10:47] VITALS: BP 132/68; PULSE 64; O2SAT 99; BMI 30.2
== END 2022-06-04 11:26 | disposition home or self-care (01) ==
LOC: HO.HMGC 10:40
PROVIDERS: PCP Internal Medicine; Visit Provider Internal Medicine
DX: E11.65 Type 2 diabetes mellitus with hyperglycemia (principal); E78.5 Hyperlipidemia, unspecified; I10 Essential (primary) hypertension; I69.30 Unspecified sequelae of cerebral infarction; Z00.00 Encounter for general adult medical examination without abnormal findings
CPT/HCPCS: 1123F; 99214

== ENCOUNTER 2022-08-13 15:38 | Outpatient (AMB) | payer MEDICARE, MEDICAID, SELFPAY ==
--- NOTE | 2022-08-13 15:32 | A.OFFPC_ITS ---
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/[facility] Site Coord Intake Note: Pt is having a telehealth visit with [facility] coordnator to discuss paperworkl [phone] I phone Allergies No Known Allergies [No Known Allergies*] Allergy (Verified 02/07/23 12:39) Medication List - Last Reconciled 08/13/22 by Nora Castillo MD aspirin 81 mg PO QAM atorvastatin 10 mg PO BEDTIME blood sugar diagnostic (Contour Next Test Strips) use one strip twice a day to check blood sugar before meals cholecalciferol (vitamin D3) 50 mcg PO DAILY cyanocobalamin (vitamin B-12) 1,000 mcg IM Q4W 30 days dextromethorphan-guaifenesin 10-200 mg 2 tab-caps (2 x 10-200 mg) PO Q6H PRN docusate sodium 200 mg (2 x 100 mg) PO QAM finasteride 5 mg PO DAILY 90 days gabapentin 600 mg PO BID insulin degludec (Tresiba FlexTouch U-200 insulin) 38 units (0.19 mL) subcut QAM lisinopril 5 mg PO DAILY magnesium hydroxide ([place] Milk of Magnesia) 1,200 mg (15 mL) PO DAILY PRN meloxicam 7.5 mg PO DAILY metformin 1,000 mg PO BID 30 days mirabegron ER 50 mg PO DAILY 90 days pen needle, diabetic As directed sennosides (senna) 17.2 mg (2 x 8.6 mg) PO BEDTIME PRN terazosin 10 mg PO DAILY 90 days Tobacco use date assessed: 08/13/22 Fall risk assessment: No Falls in past year Last assessed Fall Risk: 08/13/22 HPI Conservator 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 He has diabetes mellitus, with hypertension, dyslipidemia, history of CVA with residual deficit, impaired cognition ability. Currently lives in a senior living. [facility] Medical History (Updated 02/07/23 @ 12:48 by Nora Castillo MD) Acute cystitis without hematuria Alcohol-induced polyneuropathy Anemia Arthralgia Diabetes mellitus, with long-term current use of insulin Dyslipidemia Encounter for general adult medical examination with abnormal findings Essential hypertension Gait instability History of CVA with residual deficit Impaired cognitive ability Incomplete emptying of bladder Nocturia Urinary urgency Vitamin D deficiency Weak urinary stream Surgical History History of ventral hernia repair Hx of cholecystectomy Family History Father Unknown family medical history Mother Unknown family medical history Social History Housing: Assisted Living Facility Alcohol intake: never Patient Tobacco Use Status: Never used Tobacco e-Cigarette/Vaping Use: Never Used Second Hand Smoke Exposure: No Current occupational status: disabled Cognitive needs: No Hearing needs: Yes Vision needs: Yes Questionnaire Thrive Questionnaire Date Thrive assessed: 12/04/21 AUDIT C Alcohol Use Questionnaire (AUDIT-C) 1. How often do you have a drink containing alcohol?: Never (Has not had any alcoholic drinks since his stated senior living, has history of alcohol dependence) Total Score: 0 MEERA-7 AMB Questionnaire MEERA-7 Date MEERA - 7 assessed: 12/04/21 Source: Developed by Drs. Thierry Vela, Enriqueta Mosley, Isaías Mccloud and colleagues, with an educational hitesh from [employer]. Review of Systems Const All systems reviewed & are unremarkable except as noted in HPI and below Reports frequent falls (When patient attempts to stand by himself) and Reports weakness (Both lower extremities) Eyes Reports no additional complaints ENT Reports no additional complaints Card Denies chest pain, Denies syncope, Denies palpitations and Denies dyspnea Resp Denies chest congestion, Denies cough, Denies dyspnea and Denies wheezing GI Denies abdominal pain, Denies change in bowel habits and Denies heartburn Reports urinary incontinence (With overactive bladder) Musc Denies deformity, Reports muscle weakness ( bilateral legs) and Reports stiffness Skin/Breast Denies new lesions and Denies rash Neuro Reports as per HPI, Reports Abnormal speech present, Denies syncope, Reports frequent falls (When patient attempts to stand by himself) and Reports weakness (Both lower extremities) Endo Denies polydipsia, Denies polyuria and Denies palpitations Alen/Lymph Denies easy bruising Aller/Immun Denies seasonal rhinorrhea and Denies wheezing Physical exam (Primary Care) Tobacco/Smoking Status: Tobacco use Status Tobacco use date assessed 08/13/22 08/13/22 15:37 Patient Tobacco Use Status Never used Tobacco 08/13/22 15:32 e-Cigarette/Vaping Use Never Used 08/13/22 15:32 Thrive Assessment: Date of Thrive Assessment Date Thrive assessed 12/04/21 08/13/22 15:32 Neuro Speech: Abnormal speech present Telehealth Telehealth Location of provider rendering services: practice address Location of patient: address on file Patient Identification confirmed using: Name, : Yes Telehealth method: video Patient verbally consented to treatment: Yes Patient verbally consented to billing insurance company: Yes Patient informed of any privacy concerns related to visit: Yes Minutes spent on Phone/Video with Pt.: 15 Assessment and Plan Assessment & Plan (1) History of CVA with residual deficit: Code(s): I69.30 - Unspecified sequelae of cerebral infarction Plan: Has impaired admission and decision making, form for conservatorship completed (2) Alcohol-induced polyneuropathy: Code(s): G62.1 - Alcoholic polyneuropathy Plan: Currently on gabapentin (3) Type 2 diabetes mellitus without complications: Code(s): E11.9 - Type 2 diabetes mellitus without complications Plan: On Tarceva 42 units daily and metformin 1000 mg twice a day (4) Dyslipidemia: Code(s): E78.5 - Hyperlipidemia, unspecified Plan: Currently on atorvastatin 10 mg at night (5) Essential hypertension: Code(s): I10 - Essential (primary) hypertension Plan: On lisinopril (6) Arthralgia: Code(s): M25.50 - Pain in unspecified joint Plan: Takes acetaminophen extended release as needed for joint pain (7) Gait instability: Code(s): R26.81 - Unsteadiness on feet Plan: Currently rates with assistance of wheelchair and walker Coding Level of Care Code Tele Est Pt Level 3 (50397) Diagnoses History of CVA with residual deficit I69.30 Alcohol-induced polyneuropathy G62.1 Type 2 diabetes mellitus without complications E11.9 Dyslipidemia E78.5 Essential hypertension I10 Arthralgia M25.50 Gait instability R26.81
== END 2022-08-13 17:00 | disposition home or self-care (01) ==
LOC: HO.HMGC 15:38
PROVIDERS: PCP Internal Medicine; Visit Provider Internal Medicine
DX: E11.9 Type 2 diabetes mellitus without complications (principal); G62.1 Alcoholic polyneuropathy; I10 Essential (primary) hypertension; I69.30 Unspecified sequelae of cerebral infarction; E78.5 Hyperlipidemia, unspecified; M25.50 Pain in unspecified joint; R26.81 Unsteadiness on feet
CPT/HCPCS: 99213

== ENCOUNTER 2022-08-27 08:05 | Outpatient (REF) | payer MEDICARE, MEDICAID, SELFPAY ==
[2022-08-27 11:57] LABS: Alanine Aminotransferase 14 U/L (0-40); Anion Gap 14 (12-20); Aspartate Amino Transferase 15 U/L (5-37); Blood Urea Nitrogen 13 mg/dL (9-16); Calcium 9.3 mg/dL (8.4-10.2); Carbon Dioxide 27 mmol/L (22-29); Chloride 105 mmol/L (96-108); Cholesterol 150 mg/dL; Estimated Glomerular Filt Rate > 60; Glucose Fasting 136 mg/dL (60-99); HDL Cholesterol 67 mg/dL; LDL Cholesterol Calculated 71 mg/dl; Potassium 4.4 mmol/L (3.3-5.1); Sodium 142 mmol/L (135-145); Triglycerides 64 mg/dL
[2022-08-27 12:11] LABS: Estimated Average Glucose 203 mg/dL; Hemoglobin A1c % 8.7 %
[2022-08-27 12:30] LABS: Folate 13.7 ng/mL (> or = 4.0); Vitamin B12 455 pg/mL (200-900); Vitamin D 25-OH Total 44.4 ng/mL (>30)
[2022-08-27 13:35] LABS: Creatinine Urine 133.99 mg/dL; Microalbum/Creatinine Ratio Ur 8.9 ug/mg cr
== END 2022-08-27 08:06 | disposition home or self-care (01) ==
LOC: HO.HMGCLDS 08:05
PROVIDERS: PCP Internal Medicine; Visit Provider Internal Medicine
DX: E53.8 Deficiency of other specified B group vitamins (principal); E55.9 Vitamin D deficiency, unspecified; E78.5 Hyperlipidemia, unspecified; I10 Essential (primary) hypertension; E11.65 Type 2 diabetes mellitus with hyperglycemia
CPT/HCPCS: 36415; 80048; 80061; 82043; 82306; 82607; 82746; 83036; 84450; 84460

== ENCOUNTER 2023-02-04 09:11 | Outpatient (REF) | payer MEDICARE, MEDICAID, SELFPAY ==
[2023-02-04 11:34] LABS: Estimated Average Glucose 166 mg/dL; Hemoglobin A1c % 7.4 %
[2023-02-04 12:17] LABS: Alanine Aminotransferase 15 U/L (0-40); Anion Gap 14 (12-20); Aspartate Amino Transferase 21 U/L (5-37); Blood Urea Nitrogen 13 mg/dL (9-16); Carbon Dioxide 25 mmol/L (22-29); Chloride 106 mmol/L (96-108); Cholesterol 143 mg/dL; Estimated Glomerular Filt Rate 53; Glucose Fasting 64 mg/dL (60-99); HDL Cholesterol 66 mg/dL; LDL Cholesterol Calculated 66 mg/dl; Potassium 4.7 mmol/L (3.3-5.1); Sodium 140 mmol/L (135-145); Triglycerides 59 mg/dL
[2023-02-04 12:23] LABS: Microalbum/Creatinine Ratio Ur 4.3 ug/mg cr
== END 2023-02-04 09:12 | disposition home or self-care (01) ==
LOC: HO.HMGCLDS 09:11
PROVIDERS: PCP Internal Medicine; Visit Provider Internal Medicine
DX: E11.65 Type 2 diabetes mellitus with hyperglycemia (principal); E78.5 Hyperlipidemia, unspecified; I10 Essential (primary) hypertension; I69.30 Unspecified sequelae of cerebral infarction
CPT/HCPCS: 36415; 80048; 80061; 82043; 83036; 84450; 84460

== ENCOUNTER 2023-02-07 11:51 | Outpatient (AMB) | payer MEDICARE, MEDICAID, SELFPAY ==
[2023-02-07 11:58] VITALS: BP 118/64; PULSE 74; O2SAT 97
--- NOTE | 2023-02-07 11:58 | A.OFFPC_ITS ---
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 Allergies No Known Allergies [No Known Allergies*] Allergy (Verified 02/07/23 12:39) Medication List - Last Reconciled 02/07/23 by Nora Castillo MD acetaminophen ER 650 mg PO Q8H PRN aspirin 81 mg PO QAM atorvastatin 10 mg PO BEDTIME blood sugar diagnostic (Contour Next Test Strips) use one strip twice a day to check blood sugar before meals cholecalciferol (vitamin D3) 50 mcg orally in AM; cyanocobalamin (vitamin B-12) 1,000 mcg IM Q4W 30 days diclofenac sodium 1% 2 grams topical QID PRN docusate sodium 200 mg (2 x 100 mg) PO QAM finasteride 5 mg PO DAILY 90 days gabapentin 600 mg PO BID insulin degludec (Tresiba FlexTouch U-200 insulin) 42 units (0.21 mL) subcut QAM lisinopril 5 mg orally IN AM; magnesium hydroxide (Crawley Milk of Magnesia) 1,200 mg (15 mL) PO DAILY PRN meloxicam 7.5 mg PO DAILY PRN metformin 1,000 mg PO BID 30 days mirabegron ER 50 mg PO DAILY 90 days pen needle, diabetic As directed to inject insulin once a day sennosides (senna) 17.2 mg (2 x 8.6 mg) PO BEDTIME PRN terazosin 10 mg PO DAILY 90 days Tobacco use date assessed: 10/28/22 Fall risk assessment: No Falls in past year Last assessed Fall Risk: 02/07/23 Dental Screening Dental Screen Date: 02/07/23 Did you have a dental visit in the last 12 months?: No Did you have a dental problem in the last 6 months where you did not have access to dental care?: No Was dental information given to patient?: Patient declined HPI f/u DM, lipids HPI Details 77-year-old male here today for follow-up on his lipids, diabetes mellitus, hypertension. He is currently accompanied today by his business case analyst. Lives in a long term. Nurses have been giving him his medicines at home. Has no complaints at present time. Recent fasting labs showed marked improvement in his diabetes control with hemoglobin A1c now down to 7.4% and fasting lipids are within normal limits. CBC a year ago showed presence of anemia. As per caregiver, there has not been any signs of bleeding in his urine or stool, no dark stools noted. [facility] Medical History (Updated 02/07/23 @ 12:48 by Nora Castillo MD) Acute cystitis without hematuria Alcohol-induced polyneuropathy Anemia Arthralgia Diabetes mellitus, with long-term current use of insulin Dyslipidemia Encounter for general adult medical examination with abnormal findings Essential hypertension Gait instability History of CVA with residual deficit Impaired cognitive ability Incomplete emptying of bladder Nocturia Urinary urgency Vitamin D deficiency Weak urinary stream Surgical History History of ventral hernia repair Hx of cholecystectomy Family History Father Unknown family medical history Mother Unknown family medical history Social History Housing: Assisted Living Facility Alcohol intake: never Patient Tobacco Use Status: Never used Tobacco e-Cigarette/Vaping Use: Never Used Second Hand Smoke Exposure: No Current occupational status: disabled Cognitive needs: No Hearing needs: Yes Vision needs: Yes Questionnaire Thrive Questionnaire Date Thrive assessed: 10/03/22 MEERA-7 AMB Questionnaire MEERA-7 Date MEERA - 7 assessed: 10/03/22 Source: Developed by Drs. Thierry Vela, Enriqueta Mosley, Isaías Mccloud and colleagues, with an educational hitesh from [employer]. Review of Systems Const Reports no additional complaints and Denies fever(s) Eyes Reports no additional complaints ENT Reports no additional complaints Card Denies chest pain, Denies syncope, Denies palpitations and Denies dyspnea Resp Denies chest congestion, Denies cough, Denies dyspnea and Denies wheezing GI Denies abdominal pain, Denies change in bowel habits and Denies heartburn Reports no additional complaints Musc Denies deformity, Reports muscle weakness ( bilateral legs) and Reports stiffness Skin/Breast Denies new lesions and Denies rash Neuro Reports no additional complaints, Reports as per HPI, Reports Abnormal speech present and Denies syncope Endo Denies polydipsia, Denies polyuria and Denies palpitations Alen/Lymph Denies easy bruising Aller/Immun Denies seasonal rhinorrhea and Denies wheezing Physical exam (Primary Care) Vital Signs: Last Vital Signs Pulse 74 02/07/23 11:58 BP 118/64 02/07/23 11:58 Pulse Ox 97 02/07/23 11:58 Oxygen Delivery Method Room Air 02/07/23 11:58 Tobacco/Smoking Status: Tobacco use Status Tobacco use date assessed 10/28/22 02/07/23 11:59 Patient Tobacco Use Status Never used Tobacco 02/07/23 11:59 e-Cigarette/Vaping Use Never Used 02/07/23 11:59 Thrive Assessment: Date of Thrive Assessment Date Thrive assessed 10/03/22 02/07/23 11:59 Advance Care Planning discussion: Exists, not on file Const Other: Awake, able to answer simple questions, has garbled speech, accompanied by caregiver, wheelchair borne General: comfortable, no acute distress and other (Wheelchair borne, stands for short amounts of time with assistance) Nutritional Appearance: obese Limitations: language barrier (Garbled speech), physical limitations and wheelchair HENMT Head: Yes normocephalic Ears: external ears normal General nose exam: Normal external nose present Face and sinus: Yes face symmetric Mouth: Normal oral and palatal mucosa present Teeth and gingiva: edentulous Eyes General: appearance normal, both eyes and all related structures Neck Neck: Yes full ROM, Yes no lymphadenopathy and Yes supple Resp Effort & Inspection: normal respiratory effort Auscultation: clear to auscultation bilaterally Cardio Rate: regular rate Rhythm: regular rhythm Heart sounds: S1 normal heart sound present and S2 normal heart sound present GI Inspection: Yes obesity Palpation (GI): Soft to palpation, nontender, no guarding and no masses Auscultation: normal bowel sounds General: Yes no CVA tenderness Back/Spine/Pelvis Back: no CVA tenderness Skin General skin exam: no rashes or lesions noted Neuro General: CN's II-XI intact bilaterally Speech: Abnormal speech present Gait exam (Neuro): Assisted gait required Gait assisted method: wheelchair bound Extrem Other: No gross bone deformity, crepitus noted in both knees Results Reviewed Results Reviewed: ENTERED: 08/ [facility]: ORDERED: Met Prof Fast, AST, ALT, Lipid Panel Test Result Flag Reference Site Sodium 140 135-145 mmol/L Potassium 4.7 3.3-5.1 mmol/L Slight Hemolysis CL 106 96-108 mmol/L CO2 25 22-29 mmol/L Gap 14 12-20 BUN 13 9-16 mg/dL Creat 1.31 0.5-1.4 mg/dL EGFR 53 NOTE: For -Thai individuals, multiply the result by 1.210. Chronic Kidney Disease: Estimated GFR < 60 mL/min/1.73m2 Severe Kidney Disease: Estimated GFR < 15 mL/min/1.73m2 FBS 64 60-99 mg/dL CA 10.0 # 8.4-10.2 mg/dL AST (GOT) 21 5-37 U/L Slight Hemolysis ALT (GPT) 15 0-40 U/L Triglyceride 59 mg/dL Desirable Triglyceride: less than 150 mg/dL Borderline High Triglyceride 150-199 mg/dL High Triglyceride: 200-499 mg/dL Very High Triglyceride: greater than or equal to 5OO mg/dL Chol 143 mg/dL Desirable Cholesterol: less than 200 mg/dL Borderline High Cholesterol: 200-239 mg/dL High Cholesterol: greater than 239 mg/dL LDL Calculated 66 mg/dl Desirable LDL: less than 100 mg/dL Near Optimal/Above Optimal LDL: 110-129 mg/dL Borderline High LDL: 130-159 mg/dL High LDL: 160-189 mg/dL Very High LDL: greater than or equal to 190 mg/dL HDL 66 mg/dL Desirable HDL: greater than 40 mg/dL Note: This HDL assay may give artificially low results in patients with liver disease. Laboratory Tests 02/04/23 02/04/23 09:32 09:40 Estimat Average Glucose 166 Hemoglobin A1c % 7.4 Urine Creatinine 137.40 Urine Microalbumin 6.0 Microalb/Creat Ratio 4.3 Assessment and Plan Assessment & Plan (1) Essential hypertension: Code(s): I10 - Essential (primary) hypertension Plan: Blood pressure at goal of less than 130/80. Continue with lisinopril. Reinforced importance of following a low sodium diet, getting regular exercise, and lowering stress levels. (2) Dyslipidemia: Code(s): E78.5 - Hyperlipidemia, unspecified Plan: Reviewed recent fasting lipid profile with patient with levels within normal limits . Continue with atorvastatin 10 mg daily , in addition to adherence to low-cholesterol diet and regular exercise, at least 30 minutes 3 to 4 times a week, with assistance. Advised patient and caregiver to make healthy food choices, eat more fruits, vegetables, whole grains, wild caught fish and low-fat dairy. Limit amount of meat and fried or fatty food products, as well as processed foods and fast foods. Follow-up scheduled with repeat fasting lipid panel in 3 months. (3) Diabetes mellitus, with long-term current use of insulin: Code(s): E11.9 - Type 2 diabetes mellitus without complications; Z79.4 - long-term (current) use of insulin Plan: Latest hemoglobin A1c is at 7.4% better than last check. Will continue on receive a 42 units daily in a.m. and metformin a 1000 mg 1 tab twice a day heard reinforced importance of following diabetic diet and getting some form of exercise. He currently is being seen yearly for his diabetes feet exam and advised to and schedule an appointment with Dr. Santos for his yearly diabe brandon retinopathy screening. With all his vaccinations (4) Colon cancer screening: Code(s): Z12.11 - Encounter for screening for malignant neoplasm of colon Plan: Referred to GI for colon cancer screening (5) Anemia: Code(s): D64.9 - Anemia, unspecified Plan: Referred to GI for colon cancer screening, CBC and iron profile ordered (6) B12 deficiency: Code(s): E53.8 - Deficiency of other specified B group vitamins Plan: Receiving monthly by vitamin B12 injection, will check B12 level Orders: Orders Alanine Aminotransferase 3 Months D64.9 - Anemia, unspecified, E11.9 - Type 2 diabetes mellitus without complications, E53.8 - Deficiency of other specified B group vitamins, E78.5 - Hyperlipidemia, unspecified, I10 - Essential (primary) hypertension, 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.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 Aspartate Amino Transferase 3 Months D64.9 - Anemia, unspecified, E11.9 - Type 2 diabetes mellitus without complications, E53.8 - Deficiency of other specified B group vitamins, E78.5 - Hyperlipidemia, unspecified, I10 - Essential (primary) hypertension, Z79.4 - long-term (current) use of insulin Vitamin B12 and Folate 3 Months D64.9 - Anemia, unspecified, E11.9 - Type 2 diabetes mellitus without complications, E53.8 - Deficiency of other specified B group vitamins, E78.5 - Hyperlipidemia, unspecified, I10 - Essential (primary) hypertension, Z79.4 - long-term (current) use of insulin Basic Metabolic Panel Fasting 3 Months D64.9 - Anemia, unspecified, E11.9 - Type 2 diabetes mellitus without complications, E53.8 - Deficiency of other specified B group vitamins, E78.5 - Hyperlipidemia, unspecified, I10 - Essential (primary) hypertension, Z79.4 - long-term (current) use of insulin Hemoglobin A1c 3 Months D64.9 - Anemia, unspecified, E11.9 - Type 2 diabetes mellitus without complications, E53.8 - Deficiency of other specified B group vitamins, E78.5 - Hyperlipidemia, unspecified, I10 - Essential (primary) hypertension, Z79.4 - long-term (current) use of insulin IRON PROFILE 3 Months D64.9 - Anemia, unspecified, E11.9 - Type 2 diabetes mellitus without complications, E53.8 - Deficiency of other specified B group vitamins, E78.5 - Hyperlipidemia, unspecified, I10 - Essential (primary) hypertension, 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.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 Lipid Panel 3 Months D64.9 - Anemia, unspecified, E11.9 - Type 2 diabetes mellitus without complications, E53.8 - Deficiency of other specified B group vitamins, E78.5 - Hyperlipidemia, unspecified, I10 - Essential (primary) hypertension, 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.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 Vitamin D 25-OH Total 3 Months D64.9 - Anemia, unspecified, E11.9 - Type 2 diabetes mellitus without complications, E53.8 - Deficiency of other specified B group vitamins, E78.5 - Hyperlipidemia, unspecified, I10 - Essential (primary) hypertension, Z79.4 - long-term (current) use of insulin Complete Blood Count Auto Diff 3 Months D64.9 - Anemia, unspecified, E11.9 - Type 2 diabetes mellitus without complications, E53.8 - Deficiency of other specified B group vitamins, E78.5 - Hyperlipidemia, unspecified, I10 - Essential (primary) hypertension, Z79.4 - long-term (current) use of insulin Referrals Gastroenterology Referral D64.9 - Anemia, unspecified, Z12.11 - Encounter for screening for malignant neoplasm of colon Coding Level of Care Code Est Pt Level 4 (85862) Diagnoses Essential hypertension I10 Dyslipidemia E78.5 Diabetes mellitus, with long-term current use of insulin E11.9; Z79.4 Colon cancer screening Z12.11 Anemia D64.9 B12 deficiency E53.8 Additional Codes Vital Signs *Quality* - Advance Care Planning discussion: Exists, not on file ([id number])
== END 2023-02-07 14:33 | disposition home or self-care (01) ==
LOC: HO.HMGC 11:51
PROVIDERS: PCP Internal Medicine; Visit Provider Internal Medicine
DX: I10 Essential (primary) hypertension (principal); E78.5 Hyperlipidemia, unspecified; E11.9 Type 2 diabetes mellitus without complications; Z79.4 Long term (current) use of insulin; Z12.11 Encounter for screening for malignant neoplasm of colon; D64.9 Anemia, unspecified; E53.8 Deficiency of other specified B group vitamins; Z00.00 Encounter for general adult medical examination without abnormal findings
CPT/HCPCS: 1123F; 99214

== ENCOUNTER 2023-02-19 15:39 | Outpatient (AMB) | payer MEDICARE, MEDICAID, SELFPAY ==
--- NOTE | 2023-02-19 16:08 | AM.OFFVISNUR ---
Intake Intake Visit Reasons: B 12 Intake Note: Pt arrived for monthly B-12 injection Allergies No Known Allergies [No Known Allergies*] Allergy (Verified 02/07/23 12:39) Office Meds cyanocobalamin (vitamin B-12) Performing Provider: Nora Castillo MD Administered by: Ania Staples RN on 02/19/23 16:09 Dose Route Admin Location Lot Number Expiration Date [employer] Optics Engineer 1,000 mcg IM left deltoid [id number] 09/21/24 64062-232-58 GIANNI GONZALES Comments: Pt supplied Coding Diagnoses Assessment & Plan Assessment & Plan Orders: Orders AMB Vitamin B12 Injection Patient Supplied Today E53.8 - Deficiency of other specified B group vitamins
== END 2023-02-19 16:41 | disposition home or self-care (01) ==
LOC: HO.HMGC 15:39
PROVIDERS: PCP Internal Medicine; Visit Provider Internal Medicine
DX: E53.8 Deficiency of other specified B group vitamins (principal)
CPT/HCPCS: 96372; J3420

== ENCOUNTER 2023-03-28 15:48 | Outpatient (AMB) | payer MEDICARE, MEDICAID, SELFPAY ==
--- NOTE | 2023-03-28 15:53 | A.OFFVIS_ITS ---
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 Required: No Accompanied by: Other Relationship Allergies No Known Allergies [No Known Allergies*] Allergy (Verified 03/28/23 15:57) Medication List - Last Reconciled 03/28/23 by Miles Sims MD acetaminophen ER 650 mg PO Q8H PRN aspirin 81 mg PO QAM atorvastatin 10 mg PO BEDTIME blood sugar diagnostic (Contour Next Test Strips) use one strip twice a day to check blood sugar before meals cholecalciferol (vitamin D3) 50 mcg orally in AM; cyanocobalamin (vitamin B-12) 1,000 mcg IM Q4W 30 days diclofenac sodium 1% 2 grams topical QID PRN docusate sodium 200 mg (2 x 100 mg) PO QAM finasteride 5 mg PO DAILY 90 days gabapentin 600 mg PO BID insulin degludec (Tresiba FlexTouch U-200 insulin) 42 units (0.21 mL) subcut QAM lisinopril 5 mg orally IN AM; magnesium hydroxide ([place]ley Milk of Magnesia) 1,200 mg (15 mL) PO DAILY PRN meloxicam 7.5 mg PO DAILY PRN metformin 1,000 mg PO BID 30 days mirabegron ER 50 mg PO DAILY 90 days pen needle, diabetic As directed to inject insulin once a day sennosides (senna) 17.2 mg (2 x 8.6 mg) PO BEDTIME PRN terazosin 10 mg PO DAILY 90 days HPI HPI Comments History of Present Illness Details Jose has a pleasant male. He is a patient of Dr. Castillo. Seen for the following urologic conditions - overactive bladder - incomplete bladder emptying BPH Resident of facility PVR 0 Bladder control Has urinary urge but able to make bathroom Occasional accidents Continue Myrbetriq, finasteride, terazosin Lower urinary tract symptoms - primarily overactive bladder with incomplete emptying Current medications include finasteride and Myrbetriq and terazosin Background insulin-dependent diabetes 0 HB A1c - 02/12 7.4% [facility] Medical History (Updated 02/07/23 @ 12:48 by Nora Castillo MD) Diabetes mellitus, with long-term current use of insulin Impaired cognitive ability Anemia Nocturia Urinary urgency Acute cystitis without hematuria Weak urinary stream Incomplete emptying of bladder Vitamin D deficiency Encounter for general adult medical examination with abnormal findings Gait instability Alcohol-induced polyneuropathy Arthralgia Essential hypertension Dyslipidemia History of CVA with residual deficit Surgical History History of ventral hernia repair Hx of cholecystectomy Family History Father Unknown family medical history Mother Unknown family medical history Social History Housing: Assisted Living Facility Alcohol intake: never Patient Tobacco Use Status: Never used Tobacco e-Cigarette/Vaping Use: Never Used Second Hand Smoke Exposure: No Current occupational status: disabled Cognitive needs: No Hearing needs: Yes Vision needs: Yes Review of Systems Const Denies chills and Denies fever(s) Card Reports no additional complaints and Denies syncope Resp Denies cough GI Denies abdominal pain and Denies heartburn Reports as per HPI and Denies change in libido Neuro Denies syncope Psych Denies change in libido Endo Denies change in libido Physical Exam Const General: cooperative, healthy appearing, comfortable and no acute distress Orientation/consciousness: patient oriented x3 HEENT Face and sinus: Yes normal facial exam Mouth: moist mucous membranes Neck Neck: Yes normal visual inspection, Yes full ROM and Yes trachea midline Chest Chest palpation & inspection: normal inspection of the chest Resp Effort & Inspection: normal respiratory effort, able to speak in complete sentences and no respiratory distress GI Inspection: Yes normal to inspection Back/Spine/Pelvis Cervical Spine: normal cervical lordosis Thoracic/Lumbar Spine: thoracic and lumbar spine normal to inspection Skin General skin exam: no rashes or lesions noted Neuro General: patient oriented x3, gait normal, tone normal and moves all extremities Extrem General: Yes normal to inspection and Yes capillary refill normal Assessment & Plan Assessment & Plan (1) Overactive bladder: Code(s): N32.81 - Overactive bladder (2) Incomplete emptying of bladder: Code(s): R33.9 - Retention of urine, unspecified Plan Continue current medications Medications: Refilled finasteride 5 mg PO DAILY 90 tabs 3RF 90 days mirabegron ER 50 mg PO DAILY 90 tabs 3RF 90 days terazosin 10 mg PO DAILY 90 caps 3RF 90 days Patient Instructions: Imaging studies, laboratory and physical exam results were discussed and reviewed in detail. No major barriers to patient understanding were identified. An opportunity to ask questions regarding the treatment plan was provided. All questions were answered. The patient expressed understanding and agreement with the above treatment plan. The patient is aware they should contact our office by phone for worsening of their current condition or the appearance of new urologic symptoms. Compliance is encouraged with any medications and followup testing that is ordered. It is a privilege to participate in the urologic care of your patient. If you have any questions or concerns regarding treatment for the above conditions, or other urologic issues, please do not hesitate to contact me. The office telephone contact is [phone]. This note is constructed using voice recognition software. While every effort has been made to ensure accuracy brooch and bracelet maker errors may have been included. Yours sincerely, Dr Miles Sims MD, [facility] - Urology Providers of Expert, Compassionate Care for the Genitourinary System Coding Level of Care Code Est Pt Level 3 (54698) Diagnoses Overactive bladder N32.81 Incomplete emptying of bladder R33.9
== END 2023-03-28 16:05 | disposition home or self-care (01) ==
PROVIDERS: PCP Internal Medicine; Visit Provider Urology
DX: N32.81 Overactive bladder (principal); R33.9 Retention of urine, unspecified
CPT/HCPCS: 99213

== ENCOUNTER → 2023-03-28 15:48 | Outpatient (BNVA) | payer MEDICARE, MEDICAID, SELFPAY | PROVIDERS: Visit Provider Urology | DX: N32.81 Overactive bladder (principal); R33.9 Retention of urine, unspecified | CPT/HCPCS: 99212 ==

== ENCOUNTER 2023-04-18 15:47 | Outpatient (AMB) | payer MEDICARE, MEDICAID, SELFPAY ==
--- NOTE | 2023-04-18 16:00 | AM.OFFVISNUR ---
Intake Intake Visit Reasons: B12 Shot Intake Note: Pt arrived for monthly B-12 injection. He missed dose in February but no reason given. Allergies No Known Allergies [No Known Allergies*] Allergy (Verified 03/28/23 15:57) Office Meds cyanocobalamin (vitamin B-12) 1,000 mcg/mL injection solution Performing Provider: Nora Castillo MD Performing Location: [facility] Administered by: Ania Staples RN on 04/18/23 16:01 Dose Route Admin Location Dispensed Lot Number Expiration Date [facility] Efficiency Engineer 1,000 mcg IM right deltoid 1 mL [id number] 09/21/24 44489-009-46 GIANNI GONZALES Comments: Pt supplied Coding Assessment & Plan Assessment & Plan Orders: Orders AMB Vitamin B12 Injection Patient Supplied Today E53.8 - Deficiency of other specified B group vitamins
== END 2023-04-18 16:06 | disposition home or self-care (01) ==
LOC: HO.HMGC 15:47
PROVIDERS: PCP Internal Medicine; Visit Provider Internal Medicine
DX: E53.8 Deficiency of other specified B group vitamins (principal)
CPT/HCPCS: 96372; J3420

== ENCOUNTER → 2023-04-24 08:04 | Outpatient (BNVA) | payer MEDICARE, MEDICAID, SELFPAY | PROVIDERS: PCP Internal Medicine; Visit Provider Nurse Practitioner Family ==

== ENCOUNTER 2023-05-10 07:36 | Outpatient (REF) | payer MEDICARE, MEDICAID, SELFPAY ==
[2023-05-10 11:07] LABS: MANUAL DIFF FLAG NO
[2023-05-10 11:16] LABS: Basophils Percent Auto 0.6 % (0-2); Eosinophils Absolute Auto 0.2 X10*3/uL (0.0-0.4); Hematocrit 37.8 % (42.0-52.0); Hemoglobin 12.3 g/dl (14.0-18.0); Imm Gran Abs Auto 0.02 X10*3/uL (0.00-0.03); Imm Gran Pct Auto 0.4 % (0.0-0.4); Lymphocytes Absolute Auto 1.9 X10*3/uL (1.2-4.9); Lymphocytes Percent Auto 37.8 % (20-40); Mean Corpuscular HGB Conc 32.5 g/dl (31.0-36.0); Mean Corpuscular Hemoglobin 29.9 pg (27.0-33.0); Mean Corpuscular Volume 91.7 fL (80.0-98.0); Mean Platelet Volume 12.9 fL (9.4-12.4); Monocytes Absolute Auto 0.5 X10*3/uL (0.1-1.2); Monocytes Percent Auto 9.5 % (2-11); Neutrophils Absolute Auto 2.4 x10*3/uL (2.0-8.3); Neutrophils Percent Auto 47.7 % (45-73); Platelet Count 139 X10*3/uL (160-400); Red Blood Count 4.12 X10*6/uL (4.60-5.80); Red Cell Distribution Width 13.1 % (11.0-16.0)
[2023-05-10 11:23] LABS: Estimated Average Glucose 163 mg/dL; Hemoglobin A1c % 7.3 % (<6.0)
[2023-05-10 11:32] LABS: Alanine Aminotransferase 11 U/L (0-40); Anion Gap 12 (12-20); Aspartate Amino Transferase 16 U/L (5-37); Blood Urea Nitrogen 12 mg/dL (9-16); Calcium 8.3 mg/dL (8.4-10.2); Carbon Dioxide 28 mmol/L (22-29); Chloride 106 mmol/L (96-108); Cholesterol 137 mg/dL (<200); Estimated Glomerular Filt Rate 58; Glucose Fasting 134 mg/dL (60-99); HDL Cholesterol 64 mg/dL (>40); Iron 80 mcg/dL (45-160); LDL Cholesterol Calculated 61 mg/dL (<100); Percent Iron Saturation 28 % (15-50); Potassium 4.8 mmol/L (3.3-5.1); Sodium 141 mmol/L (135-145); Total Iron Binding Capacity 281 mcg/dL (228-428); Triglycerides 61 mg/dL (<150); Unsaturated Iron Binding 201 ug/dL
[2023-05-10 11:51] LABS: Vitamin D 25-OH Total 56.8 ng/mL (>30)
[2023-05-10 11:55] LABS: Folate 9.5 ng/mL (> or = 4.0); Vitamin B12 238 pg/mL (200-900)
== END 2023-05-10 07:37 | disposition home or self-care (01) ==
LOC: HO.HMGCLDS 07:36
PROVIDERS: PCP Internal Medicine; Visit Provider Internal Medicine
DX: D64.9 Anemia, unspecified (principal); E11.9 Type 2 diabetes mellitus without complications; E53.8 Deficiency of other specified B group vitamins; E78.5 Hyperlipidemia, unspecified; I10 Essential (primary) hypertension; Z79.4 Long term (current) use of insulin
CPT/HCPCS: 36415; 80048; 80061; 82306; 82607; 82746; 83036; 83540; 84450; 84460; 85025

== ENCOUNTER 2023-05-13 12:40 | Outpatient (AMB) | payer MEDICARE, MEDICAID, SELFPAY ==
--- NOTE | 2023-05-13 12:48 | A.OFFPC_ITS ---
Vital Signs 05/13/23 12:49 Height 5 ft 7 in BMI Reason not done Patient refused/unable BP 122/76 Blood Pressure Location Rt brachial Position Sitting Pulse 74 Pulse Source Pulse Oximeter Pulse Oximetry (%) 99 Oxygen Delivery Method Room Air Intake Visit Reasons: 3 month follow up Intake Note: pt is here to follow up on lab results and has a handicap placard form to fill out Allergies No Known Allergies [No Known Allergies*] Allergy (Verified 05/13/23 13:17) Medication List - Last Reconciled 05/13/23 by Nora Castillo MD acetaminophen ER 650 mg PO Q8H PRN aspirin 81 mg PO QAM atorvastatin 10 mg PO BEDTIME bisacodyl (Dulcolax (bisacodyl)) 20 mg (4 x 5 mg) PO ONCE 1 day blood sugar diagnostic (Contour Next Test Strips) use one strip twice a day to check blood sugar before meals cholecalciferol (vitamin D3) 50 mcg orally in AM; cyanocobalamin (vitamin B-12) 1,000 mcg IM Q4W 30 days diclofenac sodium 1% 2 grams topical QID PRN docusate sodium 200 mg (2 x 100 mg) PO QAM finasteride 5 mg PO DAILY 90 days gabapentin 600 mg PO BID insulin degludec (Tresiba FlexTouch U-200 insulin) 42 units (0.21 mL) subcut QAM lisinopril 5 mg orally IN AM; magnesium hydroxide (Crawley Milk of Magnesia) 1,200 mg (15 mL) PO DAILY PRN meloxicam 7.5 mg PO DAILY PRN metformin 1,000 mg PO BID 30 days mirabegron ER 50 mg PO DAILY 90 days pen needle, diabetic As directed to inject insulin once a day polyethylene glycol 3350 (Miralax) 238 grams PO ONCE sennosides (senna) 17.2 mg (2 x 8.6 mg) PO BEDTIME PRN terazosin 10 mg PO DAILY 90 days Tobacco use date assessed: 05/13/23 Fall risk assessment: 1 Fall in past year Last assessed Fall Risk: 05/13/23 Dental Screening Dental Screen Date: 05/13/23 HPI 3 month follow up HPI Details 77 year-old male here today for follow-u p on his lipids, diabetes mellitus, hypertension. He is currently accompanied today by his case resolution specialist. Lives in a jail. No new complaints, jailhome restoration service cleaner requesting handicap placard for patient, as he is unable to ambulate for long distances without assistance due to polyneuropathy [facility], [facility] Medical History (Updated 06/17/23 @ 02:12 by Nora Castillo MD) Systolic murmur Diabetes mellitus, with long-term current use of insulin Impaired cognitive ability Anemia Nocturia Urinary urgency Acute cystitis without hematuria Weak urinary stream Incomplete emptying of bladder Vitamin D deficiency Encounter for general adult medical examination with abnormal findings Gait instability Alcohol-induced polyneuropathy Arthralgia Essential hypertension Dyslipidemia History of CVA with residual deficit Surgical History History of ventral hernia repair Hx of cholecystectomy Family History Father Unknown family medical history Mother Unknown family medical history Social History Housing: Assisted Living Facility Alcohol intake: never Patient Tobacco Use Status: Never used Tobacco e-Cigarette/Vaping Use: Never Used Second Hand Smoke Exposure: No Current occupational status: disabled Cognitive needs: No Hearing needs: Yes Vision needs: Yes Questionnaire Thrive Questionnaire Date Thrive assessed: 10/03/22 MEERA-7 AMB Questionnaire MEERA-7 Date MEERA - 7 assessed: 10/03/22 Source: Developed by Drs. Thierry Vela, Enriqueta Mosley, Isaías Mccloud and colleagues, with an educational hitesh from [employer]. Review of Systems Const Reports no additional complaints ENT Reports no additional complaints Card Reports no additional complaints Resp Reports no additional complaints GI Denies abdominal pain, Denies melena, Denies bloating, Denies change in bowel habits and Denies heartburn Reports no additional complaints Musc Reports no additional complaints Neuro Reports no additional complaints and Reports Abnormal speech present Psych Reports no additional complaints Endo Reports no additional complaints Physical exam (Primary Care) Vital Signs: Last Vital Signs Pulse 74 05/13/23 12:49 BP 122/76 05/13/23 12:49 Pulse Ox 99 05/13/23 12:49 Oxygen Delivery Method Room Air 05/13/23 12:49 Tobacco/Smoking Status: Tobacco use Status Tobacco use date assessed 05/13/23 05/13/23 12:59 Patient Tobacco Use Status Never used Tobacco 05/13/23 12:49 e-Cigarette/Vaping Use Never Used 05/13/23 12:49 Thrive Assessment: Date of Thrive Assessment Date Thrive assessed 10/03/22 05/13/23 12:49 Advance Care Planning discussion: Exists, not on file Const Other: Awake, able to answer simple questions, has garbled speech, accompanied by caregiver, wheelchair borne General: comfortable, no acute distress and other (Wheelchair borne, stands for short amounts of time with assistance) Nutritional Appearance: obese Limitations: language barrier (Garbled speech), physical limitations and wheelchair HENMT Head: Yes normocephalic Ears: external ears normal General nose exam: Normal external nose present Face and sinus: Yes face symmetric Mouth: Normal oral and palatal mucosa present Teeth and gingiva: edentulous Eyes General: appearance normal, both eyes and all related structures Neck Neck: Yes full ROM, Yes no lymphadenopathy and Yes supple Resp Effort & Inspection: normal respiratory effort Auscultation: clear to auscultation bilaterally Cardio Rate: regular rate Rhythm: regular rhythm Heart sounds: S1 normal heart sound present, S2 normal heart sound present and Murmur heart sound present systolic GI Inspection: Yes obesity Palpation (GI): Soft to palpation, nontender, no guarding and no masses Auscultation: normal bowel sounds Neuro General: CN's II-XI intact bilaterally Speech: Abnormal speech present Gait exam (Neuro): Assisted gait required Gait assisted method: wheelchair bound Extrem Other: No gross bone deformity, crepitus noted in both knees Results Reviewed Results Reviewed: Name: Jose Rodriguez Age/Sex: 77/M : 1945 Unit#: [id number] Attend Dr: Nora Castillo MD Re05/10/23 Status: DEP [facility]F [facility] Disch: SPEC : [id number] AMANDA: 05/10/23 STATUS: COMP REQ : [id number] RECD: 05/10/[address]: Nora Castillo MD COMP: 05/10/23 ENTERED: 05/10/[address]: ORDERED: CBC Auto Diff Test Result Flag Reference Site WBC 5.0 4.8-10.8 X10*3/uL RBC 4.12 L 4.60-5.80 X10*6/uL HGB 12.3 L 14.0-18.0 g/dl HCT 37.8 L 42.0-52.0 % MCV 91.7 80.0-98.0 fL MCH 29.9 27.0-33.0 pg MCHC 32.5 31.0-36.0 g/dl RDW 13.1 11.0-16.0 % PLT 139 L 160-400 X10*3/uL ENTERED: 05/10/230780 [facility] DR: ORDERED: Met Prof Fast, IRON PROF, AST, ALT, Lipid Panel, Vitamin D 25-OH Test Result Flag Reference Site Sodium 141 135-145 mmol/L Potassium 4.8 3.3-5.1 mmol/L CL 106 96-108 mmol/L CO2 28 22-29 mmol/L Gap 12 12-20 BUN 12 9-16 mg/dL Creat 1.22 0.5-1.4 mg/dL EGFR 58 NOTE: For -Croat[place] individuals, multiply the result by 1.210. Chronic Kidney Disease: Estimated GFR < 60 mL/min/1.73m2 Severe Kidney Disease: Estimated GFR < 15 mL/min/1.73m2 FBS 134 H 60-99 mg/dL A fasting glucose of 126 mg/dl or greater on more than one occasion is considered diagnostic of diabetes. CA 8.3 # L 8.4-10.2 mg/dL Iron 80 45-160 mcg/dL TIBC 281 228-428 mcg/dL Saturation 28 15-50 % UIBC 201 ug/dL AST (GOT) 16 5-37 U/L ALT (GPT) 11 0-40 U/L Triglyceride 61 <150 mg/dL Desirable Triglyceride: less than 150 mg/dL Borderline High Triglyceride 150-199 mg/dL High Triglyceride: 200-499 mg/dL Very High Triglyceride: greater than or equal to 5OO mg/dL Cholesterol 137 <200 mg/dL Desirable Cholesterol: less than 200 mg/dL Borderline High Cholesterol: 200-239 mg/dL High Cholesterol: greater than 239 mg/dL LDL Calculated 61 <100 mg/dL Desirable LDL: less than 100 mg/dL Near Optimal/Above Optimal LDL: 110-129 mg/dL Borderline High LDL: 130-159 mg/dL High LDL: 160-189 mg/dL Very High LDL: greater than or equal to 190 mg/dL HDL 64 >40 mg/dL Desirable HDL: greater than 40 mg/dL Note: This HDL assay may give artificially low results in patients with liver disease. Vit D 25-OH Tot 56.8 >30 ng/mL Health Based Reference Values* < 20 ng/mL Deficient 20-30 ng/mL Insufficient > 30 ng/mL Sufficient Laboratory Tests 05/10/23 07:47 Estimat Average Glucose 163 Hemoglobin A1c % 7.3 H Assessment and Plan Assessment & Plan (1) Diabetes mellitus, with long-term current use of insulin: Code(s): E11.9 - Type 2 diabetes mellitus without complications; Z79.4 - meterman (current) use of insulin Plan: Hemoglobin A1c at 7.3%, continued on Tresiba and metformin (2) Systolic murmur: Code(s): R01.1 - Cardiac murmur, unspecified Plan: Echocardiogram ordered. Patient without complaints of chest pain, shortness of breath or palpitations (3) Alcohol-induced polyneuropathy: Code(s): G62.1 - Alcoholic polyneuropathy Plan: Continue with gabapentin 600 mg 1 tab b.i.d.. Handicap form for application for [employer] completed today and given back to jailhome restoration service cleaner (4) Dyslipidemia: Code(s): E78.5 - Hyperlipidemia, unspecified Plan: Fasting lipids are within normal limits, continue on atorvastatin 10 mg daily, and reinforced importance of following a low-cholesterol diet (5) Essential hypertension: Code(s): I10 - Essential (primary) hypertension Plan: Blood pressure at goal of less than 130/80. Continue with current medication. Reinforced importance of following a low sodium diet, getting regular exercise, and lowering stress levels. (6) History of CVA with residual deficit: Code(s): I69.30 - Unspecified sequelae of cerebral infarction Plan: Continue aspirin 81 mg daily and atorvastatin 10 mg at bedtime, (7) Anemia: Code(s): D64.9 - Anemia, unspecified Qualifiers: Anemia type: unspecified type Qualified Code(s): D64.9 - Anemia, unspecified Orders: Orders CA echo transthoracic complete 05/13/23 R01.1 - Cardiac murmur, unspecified Coding Level of Care Code Est Pt Level 4 (71397) Diagnoses Diabetes mellitus, with long-term current use of insulin E11.9; Z79.4 Systolic murmur R01.1 Alcohol-induced polyneuropathy G62.1 Dyslipidemia E78.5 Essential hypertension I10 History of CVA with residual deficit I69.30 Anemia, unspecified type D64.9 Anemia type: unspecified type Additional Codes Vital Signs *Quality* - Advance Care Planning discussion: Exists, not on file ([id number])
[2023-05-13 12:49] VITALS: BP 122/76; PULSE 74; O2SAT 99
== END 2023-05-13 13:43 | disposition home or self-care (01) ==
PROVIDERS: PCP Internal Medicine; Visit Provider Internal Medicine
DX: E11.9 Type 2 diabetes mellitus without complications (principal); Z79.4 Long term (current) use of insulin; R01.1 Cardiac murmur, unspecified; G62.1 Alcoholic polyneuropathy; E78.5 Hyperlipidemia, unspecified; I10 Essential (primary) hypertension; I69.30 Unspecified sequelae of cerebral infarction; D64.9 Anemia, unspecified; Z00.00 Encounter for general adult medical examination without abnormal findings
CPT/HCPCS: 1123F; 99214

== ENCOUNTER 2023-05-23 16:10 | Outpatient (AMB) | payer MEDICARE, MEDICAID, SELFPAY ==
--- NOTE | 2023-05-23 16:14 | AM.OFFVISNUR ---
Intake Intake Visit Reasons: B12 Intake Note: Pt arrived for monthly B12 injection Allergies No Known Allergies [No Known Allergies*] Allergy (Verified 05/13/23 13:17) Office Meds cyanocobalamin (vitamin B-12) 1,000 mcg/mL injection solution Performing Provider: Nora Castillo MD Performing Location: [facility] [place] Adult Primary [facility] Administered by: Ania Staples RN on 05/23/23 16:14 Dose Route Admin Location Dispensed Lot Number Expiration Date ND Global Implementation Manager 1,000 mcg IM left deltoid 1 mL [id number] 07/24/25 98437-969-58 GIANNI GONZALES Comments: Pt supplied Coding Assessment & Plan Assessment & Plan Orders: Orders AMB Vitamin B12 Injection Patient Supplied Today E53.8 - Deficiency of other specified B group vitamins
== END 2023-05-23 16:15 | disposition home or self-care (01) ==
LOC: HO.HMGC 16:10
PROVIDERS: PCP Internal Medicine; Visit Provider Internal Medicine
DX: E53.8 Deficiency of other specified B group vitamins (principal)
CPT/HCPCS: 96372; J3420

== ENCOUNTER → 2023-06-13 14:55 | Outpatient (REF) | payer MEDICARE, MEDICAID, SELFPAY ==
--- NOTE | 2023-06-13 14:58 | CA_ITS ---
Transthoracic Echocardiogram Patient (Last, First, Middle): Jose Rodriguez, Gender: Male Date of : 1945 Age: 77 Procedure Date: 06/13/2023 Procedure Type: Transthoracic Echocardiogram Location: OP Height: 170.18 cm Weight: 86.18 kg BSA: 1.98 m2 Heart Rate: 66 bpm BP: 130 / 65 mmHg Assurance Auditor: MARIA R Referring MD: Nora Castillo MD Seasonal Recruiter: Dave Orta MD Symptoms: R01.1 - Cardiac murmur, unspecified Study Quality: Fair ECG Rhythm: Sinus Conclusions: - 1. Normal LV ejection fraction of 60-65% with mild LVH with impaired relaxation filling pattern 2. Moderate to severe aortic stenosis next 3. Mildly dilated ascending aorta at 4 cm 4. No gross pericardial effusion Findings Left Ventricle Normal left ventricular size and systolic function. There is mildly increased left ventricular wall thickness. The visually estimated ejection fraction is between 60-65%. Spectral Doppler is indicative of an impaired relaxation filling pattern. E/E prime ratio is between 8 and 15 consistent with indeterminate filling pressures. Right Ventricle Normal right ventricular cavity size and systolic function. Atria The left atrium is likely dilated. Interatrial shunt cannot be excluded. The right atrium is normal in size. Aortic Valve The aortic valve was not well visualized. There is moderate calcification of the aortic valve. There is moderate thickening of the aortic valve. There is moderate to severe aortic valve stenosis. The mean gradient is 27 mmHg. The aortic valve area is 1.02 cm2. There is no aortic valve regurgitation. Mitral Valve There is mild anterior and severe posterior mitral leaflet thickening. There is moderate mitral annular calcification. There is trace mitral valve regurgitation. There is no mitral valve stenosis. Pulmonic Valve The pulmonic valve was not well visualized. Tricuspid Valve Likely normal tricuspid valve structure and function. Tricuspid regurgitation envelope is inadequate for calculation of right ventricular systolic pressure. Normal right atrial pressure. Great Vessels The pulmonary artery was not well visualized. There is mild dilatation of the ascending aorta measuring 4.00 cm. Venous The inferior vena cava is normal in size and collapses greater than 50% with inspiration. Pericardium/Pleural There is no evidence of pericardial effusion. Prior Study Comparison No prior study available for comparison. Measurements 2D Linear Measurements IVSd: 1.31 0.6-0.9/0.6-1.0 cm LVIDd: 4.17 3.9-5.3/4.2-5.9 cm LVIDd Index: 2.11 2.4-3.2/2.2-3.1 cm/m2 LVIDs: 2.83 2.0-3.6 cm LVPWd: 1.22 0.7-1.1 cm LA Diam: 3.50 2.7-3.8/3.0-4.0 cm LAIDs Index: 1.77 1.5-2.3 cm/m2 LV Mass: 237.38 67-162/88-224 g LV Mass Index: 119.89 43-95/49-115 g/m2 LVOT Diam: 1.80 3.0+(-)1.3 cm 2D Systolic Function EF 4C: 68.40 >55% EF 2C: 62.60 >55% EF BiP: 64.90 >55% Mitral Valve MV Pk E: 1.13 MV PK A: 1.52 MV Decel Time: 350.00 E/A: 0.70 E'Lateral: 5.33 E'Medial: 4.90 E/E' Med: 23.10 E/E' Lat: 21.20 PHT: 102.00 MVA PHT: 2.16 Decel [place]: 3.23 Aortic Valve AoV Pk Mundo: 3.25 AoV Mn Mundo: 2.44 AoV VTI: 0.71 AoV Pk Grad: 42.00 Aov Mn Grad: 27.00 CHIDI Cont.VTI: 1.02 LVOT LVOT Pk Mundo: 1.29 LVOT Mn Mundo: 0.96 LVOT VTI: 0.29 LVOT Pk Grad: 7.00 LVOT Mn Grad: 4.00 LVOT Diam: 1.80 LVOT Area: 2.54 Diastolic Function MV Pk E: 1.13 MV Pk A: 1.52 E/A: 0.70 E'Medial: 4.90 E/E' Med: 23.10 E' Laterial: 5.33 E/E' Lat: 21.20 Right Ventricle TAPSE (mm): 18.90 TVS' Mundo: 11.00 Tricuspid Valve TR Pk Mundo: 1.25 TR Pk Grad: 6.00 RA Press: 3.00 RVSP: 9.00 Great Vessels Aorta Sinus of Valsalva: 3.70 2.0-3.5 cm Ao Asc: 4.00 2.1-3.4 cm Pulmonary Valve PV Pk Mundo: 0.94 Peak PV Grad: 4.00 Updated in Other Vendor System with Status of Final Dave Orta MD electronically signed on 06/14/2023 11:08:12 AM with status of Final
== END ==
LOC: HO.CARD 14:55
PROVIDERS: PCP Internal Medicine; Visit Provider Internal Medicine
DX: R01.1 Cardiac murmur, unspecified (principal)
CPT/HCPCS: 93306

== ENCOUNTER → 2023-06-13 14:58 | Outpatient (BNV) | payer MEDICARE, MEDICAID, SELFPAY | PROVIDERS: PCP Internal Medicine; Visit Provider Internal Medicine Cardiovascular Disease | DX: I35.0 Nonrheumatic aortic (valve) stenosis (principal) | CPT/HCPCS: 93306 ==

== ENCOUNTER 2023-06-25 15:50 | Outpatient (AMB) | payer MEDICARE, MEDICAID, SELFPAY ==
--- NOTE | 2023-06-25 15:59 | AM.OFFVISNUR ---
Intake Intake Visit Reasons: B12 Intake Note: Pt arrived for monthly B-12 injection Allergies No Known Allergies [No Known Allergies*] Allergy (Verified 05/13/23 13:17) Office Meds cyanocobalamin (vitamin B-12) 1,000 mcg/mL injection solution Performing Provider: Nora Castillo MD Performing Location: [facility] [place] Adult Primary Care-[facility] Administered by: Ania Staples RN on 06/25/23 15:59 Dose Route Admin Location Dispensed Lot Number Expiration Date NDC Assistant Federal Public Defender 1,000 mcg IM Right deltoid 1 mL [id number] 07/24/25 86108-633-90 GIANNI GONZALES Comments: Pt supplied Coding Assessment & Plan Assessment & Plan Orders: Orders AMB Vitamin B12 Injection Patient Supplied Today E53.8 - Deficiency of other specified B group vitamins
== END 2023-06-25 16:02 | disposition home or self-care (01) ==
PROVIDERS: PCP Internal Medicine; Visit Provider Internal Medicine
DX: E53.8 Deficiency of other specified B group vitamins (principal)
CPT/HCPCS: 96372; J3420

== ENCOUNTER 2023-07-30 16:07 | Outpatient (AMB) | payer MEDICARE, MEDICAID, SELFPAY ==
--- NOTE | 2023-07-30 16:46 | AM.OFFVISNUR ---
Intake Intake Visit Reasons: B12 Intake Note: Pt arrived for monthly B12 injection Allergies No Known Allergies [No Known Allergies*] Allergy (Verified 05/13/23 13:17) Office Meds cyanocobalamin (vitamin B-12) 1,000 mcg/mL injection solution Performing Provider: Nora Castillo MD Performing Location: [facility] [place] Adult Primary Care-[facility] Administered by: Ania Staples RN on 07/30/23 16:46 Dose Route Admin Location Dispensed Lot Number Expiration Date ND Director Of Human Resources 1,000 mcg IM left deltoid 1 mL [id number] 09/21/24 90138-059-20 GIANNI GONZALES Comments: Pt supplied Coding Assessment & Plan Assessment & Plan Orders: Orders AMB Vitamin B12 Injection Patient Supplied Today E53.8 - Deficiency of other specified B group vitamins
== END 2023-07-30 16:14 | disposition home or self-care (01) ==
LOC: HO.HMGC 16:07
PROVIDERS: PCP Internal Medicine; Visit Provider Internal Medicine
DX: E53.8 Deficiency of other specified B group vitamins (principal)
CPT/HCPCS: 96372; J3420

== ENCOUNTER → 2023-08-14 11:10 | Outpatient (BNVA) | payer MEDICARE, MEDICAID, SELFPAY | PROVIDERS: PCP Internal Medicine; Visit Provider Internal Medicine | DX: I35.0 Nonrheumatic aortic (valve) stenosis (principal) | CPT/HCPCS: 93005; 99202 ==

== ENCOUNTER 2023-08-14 11:11 | Outpatient (AMB) | payer MEDICARE, MEDICAID, SELFPAY ==
--- NOTE | 2023-08-14 11:25 | MHC.OFFVIS ---
Intake Vital Signs 08/14/23 11:26 Height 5 ft 7 in BMI Reason not done Patient refused/unable BP 130/62 Blood Pressure Location Lt brachial Position Sitting Pulse 70 Pulse Source Pulse Oximeter Intake Visit Reasons: NPV/Espinas/ Intake Note: Pt presents to the office today for a new patient visit with EKG. Allergies No Known Allergies [No Known Allergies*] Allergy (Verified 08/14/23 11:26) Medication List - Last Reconciled 08/14/23 by Gaurav Allen MD acetaminophen ER 650 mg PO Q8H PRN aspirin 81 mg PO QAM atorvastatin 10 mg PO BEDTIME bisacodyl (Dulcolax (bisacodyl)) 20 mg (4 x 5 mg) PO ONCE 1 day blood sugar diagnostic (Contour Next Test Strips) use one strip twice a day to check blood sugar before meals cholecalciferol (vitamin D3) 50 mcg orally in AM; cyanocobalamin (vitamin B-12) 1,000 mcg IM Q4W 30 days dextromethorphan-guaifenesin 10-200 mg 2 tab-caps (2 x 10-200 mg) PO Q8H PRN diclofenac sodium 1% 2 grams topical QID PRN docusate sodium 200 mg (2 x 100 mg) PO QAM finasteride 5 mg PO DAILY 90 days gabapentin 600 mg PO BID insulin degludec (Tresiba FlexTouch U-200 insulin) 42 units (0.21 mL) subcut QAM lisinopril 5 mg orally IN AM; magnesium hydroxide ([place]ley Milk of Magnesia) 1,200 mg (15 mL) PO DAILY PRN meloxicam 7.5 mg PO DAILY PRN metformin 1,000 mg PO BID mirabegron ER 50 mg PO DAILY 90 days pen needle, diabetic As directed to inject insulin once a day polyethylene glycol 3350 (Miralax) 238 grams PO ONCE sennosides (senna) 17.2 mg (2 x 8.6 mg) PO BEDTIME PRN terazosin 10 mg PO DAILY 90 days HPI HPI Comments History of Present Illness Details Jose is here for consultation regarding aortic stenosis. Patient apparently lives in a correction. Apparently, history of alcohol excess in the past but nothing recently according to the SUPERVISOR PAIRING AND INSPECTING who came with him. She states she gets short of breath randomly. No specific patterns. Patient comes in a wheelchair. [facility] Medical History Moderate to severe aortic stenosis Systolic murmur Diabetes mellitus, with long-term current use of insulin Impaired cognitive ability Anemia Nocturia Urinary urgency Acute cystitis without hematuria Weak urinary stream Incomplete emptying of bladder Vitamin D deficiency Encounter for general adult medical examination with abnormal findings Gait instability Alcohol-induced polyneuropathy Arthralgia Essential hypertension Dyslipidemia History of CVA with residual deficit Surgical History History of ventral hernia repair Hx of cholecystectomy Family History Father Unknown family medical history Mother Unknown family medical history Social History Housing: Assisted Living Facility Alcohol intake: never Patient Tobacco Use Status: Never used Tobacco e-Cigarette/Vaping Use: Never Used Second Hand Smoke Exposure: No Current occupational status: disabled Cognitive needs: No Hearing needs: Yes Vision needs: Yes Review of Systems Const All systems reviewed & are unremarkable except as noted in HPI and below Reports as per HPI and Reports no additional complaints Eyes Reports as per HPI and Denies no additional complaints ENT Denies no additional complaints and Reports as per HPI Card Reports leg edema, Denies palpitations and Reports dyspnea Resp Reports dyspnea GI Reports as per HPI and Denies no additional complaints Reports no additional complaints and Reports as per HPI Musc Reports no additional complaints and Reports as per HPI Skin/Breast Reports system reviewed and no additional complaints, except as documented Neuro Reports no additional complaints and Reports as per HPI Psych Reports no additional complaints and Reports as per HPI Endo Reports no additional complaints, Reports as per HPI and Denies palpitations Alen/Lymph Reports no additional complaints and Reports as per HPI Aller/Immun Reports no additional complaints and Reports as per HPI Physical Exam Vital Signs: Last Vital Signs Pulse 70 08/14/23 11:26 BP 130/62 08/14/23 11:26 Const General: comfortable and no acute distress Orientation/consciousness: patient oriented x3 HEENT Other: Unremarkable Head: Yes normal to inspection Neck Neck: Yes normal visual inspection Chest Chest palpation & inspection: normal inspection of the chest Resp Auscultation: clear to auscultation bilaterally Cardio Palpation: normal PMI Heart sounds: S1 normal heart sound present, S2 normal heart sound present, no gallops, Murmur heart sound present systolic III/ and at the right sternal border and no rubs GI Palpation (GI): Soft to palpation Back/Spine/Pelvis Other: unremarkable Skin General skin exam: no rashes or lesions noted Neuro General: patient oriented x3 Extrem General: Yes normal to inspection Psych Mental Status: mental status grossly normal Office Procedures EKG Details: EKG with sinus rhythm at 70/Min; no significant ST-T changes and otherwise [place]remarkable[place] [id number], Complete Assessment & Plan Assessment & Plan (1) Non-rheumatic aortic stenosis: Code(s): I35.0 - Nonrheumatic aortic (valve) stenosis Plan In the recent echocardiogram, noted have moderate calcification of the aortic valve. Mean gradient was 27 mm Hg with a calculated valve area of 1 cm2. Preserved LVEF at 60-65%. Overall, thought to be moderate to severe aortic stenosis. Patient himself is not in a position to understand the implications. Discussed with SUPERVISOR PAIRING AND INSPECTING but she states she will bring her packing house supervisor next time. Will need to follow this on another echocardiogram in about 4 months or so. If clear-cut severe stenosis as well as symptoms, then need to address feasibility of invasive studies considering his overall health and mental issues. To be decided. Coding Level of Care Code New Pt Level 4 (45297) Diagnoses Non-rheumatic aortic stenosis I35.0 CPT Codes EKG - CPT: 30215-[id number], Complete ([id number])
[2023-08-14 11:26] VITALS: BP 130/62; PULSE 70
== END 2023-08-14 11:59 | disposition home or self-care (01) ==
PROVIDERS: PCP Internal Medicine; Visit Provider Internal Medicine
DX: I35.0 Nonrheumatic aortic (valve) stenosis (principal)
CPT/HCPCS: 93010; 99204

== ENCOUNTER 2023-08-28 15:54 | Outpatient (AMB) | payer MEDICARE, MEDICAID, SELFPAY ==
--- NOTE | 2023-08-28 16:05 | AM.OFFVISNUR ---
Intake Intake Visit Reasons: B-12 Shot Intake Note: Pt arrived for B-12 injection Allergies No Known Allergies [No Known Allergies*] Allergy (Verified 08/14/23 11:26) Office Meds cyanocobalamin (vitamin B-12) 1,000 mcg/mL injection solution Performing Provider: Nora Castillo MD Performing Location: [facility] Primary [facility] Administered by: Ania Staples RN on 08/28/23 16:05 Dose Route Admin Location Dispensed Lot Number Expiration Date ND Production Laborer 1,000 mcg IM right deltoid 1 mL [id number] 07/24/25 24487-984-15 GIANNI GONZALES Comments: Pt supplied Coding Assessment & Plan Assessment & Plan Orders: Orders AMB Vitamin B12 Injection Patient Supplied Today E53.8 - Deficiency of other specified B group vitamins
== END 2023-08-28 16:42 | disposition home or self-care (01) ==
LOC: HO.HMGC 16:00
PROVIDERS: PCP Internal Medicine; Visit Provider Internal Medicine
DX: E53.8 Deficiency of other specified B group vitamins (principal)
CPT/HCPCS: 96372; J3420

== ENCOUNTER 2023-09-23 15:42 | Outpatient (AMB) | payer MEDICARE, MEDICAID, SELFPAY ==
--- NOTE | 2023-09-23 15:51 | MHC.OFFVIS ---
Intake Intake Visit Reasons: 6m/PVR Intake Note: Patient is Present for Follow Up Urology Medication: Finasteride, Myrbetriq, Terazosin Antibiotic Allergies: None Blood Thinners: Aspirin PVR: 0 Allergies No Known Allergies [No Known Allergies*] Allergy (Verified 09/23/23 15:53) HPI HPI Comments History of Present Illness Details Jose has a pleasant male. He is a patient of Dr. Castillo. Seen for the following urologic conditions - overactive bladder - incomplete bladder emptying BPH Resident of facility PVR 0 Yearly follow-up Bladder control Has urinary urge but able to make bathroom Occasional accidents Continue Myrbetriq, finasteride, terazosin Lower urinary tract symptoms - primarily overactive bladder with incomplete emptying Current medications include finasteride and Myrbetriq and terazosin Background insulin-dependent diabetes 0 HB A1c - 02/12 7.4% [facility] Medical History Moderate to severe aortic stenosis Systolic murmur Diabetes mellitus, with long-term current use of insulin Impaired cognitive ability Anemia Nocturia Urinary urgency Acute cystitis without hematuria Weak urinary stream Incomplete emptying of bladder Vitamin D deficiency Encounter for general adult medical examination with abnormal findings Gait instability Alcohol-induced polyneuropathy Arthralgia Essential hypertension Dyslipidemia History of CVA with residual deficit Surgical History History of ventral hernia repair Hx of cholecystectomy Family History Father Unknown family medical history Mother Unknown family medical history Social History Housing: Assisted Living Facility Alcohol intake: never Patient Tobacco Use Status: Never used Tobacco e-Cigarette/Vaping Use: Never Used Second Hand Smoke Exposure: No Current occupational status: disabled Cognitive needs: No Hearing needs: Yes Vision needs: Yes Review of Systems Const Denies chills and Denies fever(s) Card Reports no additional complaints and Denies syncope Resp Denies cough GI Denies abdominal pain and Denies heartburn Reports as per HPI and Denies change in libido Neuro Denies syncope Psych Denies change in libido Endo Denies change in libido Physical Exam Const General: cooperative, healthy appearing, comfortable and no acute distress Orientation/consciousness: patient oriented x3 HEENT Face and sinus: Yes normal facial exam Mouth: moist mucous membranes Neck Neck: Yes normal visual inspection, Yes full ROM and Yes trachea midline Chest Chest palpation & inspection: normal inspection of the chest Resp Effort & Inspection: normal respiratory effort, able to speak in complete sentences and no respiratory distress GI Inspection: Yes normal to inspection Back/Spine/Pelvis Cervical Spine: normal cervical lordosis Thoracic/Lumbar Spine: thoracic and lumbar spine normal to inspection Skin General skin exam: no rashes or lesions noted Neuro General: patient oriented x3, gait normal, tone normal and moves all extremities Extrem General: Yes normal to inspection and Yes capillary refill normal Office Procedures Post Void Residual Post Residual Void Post Void Residual (PVR): 0 44081-Mour Void Residual by ultrasound Assessment & Plan Assessment & Plan (1) Incomplete emptying of bladder: Code(s): R33.9 - Retention of urine, unspecified (2) Overactive bladder: Code(s): N32.81 - Overactive bladder Plan Continue current therapy 12 month follow-up Orders: Orders AMB Post Void Residual by ultrasound 09/23/23 N32.81 - Overactive bladder Patient Instructions: Imaging studies, laboratory and physical exam results were discussed and reviewed in detail. No major barriers to patient understanding were identified. An opportunity to ask questions regarding the treatment plan was provided. All questions were answered. The patient expressed understanding and agreement with the above treatment plan. The patient is aware they should contact our office by phone for worsening of their current condition or the appearance of new urologic symptoms. Compliance is encouraged with any medications and followup testing that is ordered. It is a privilege to participate in the urologic care of your patient. If you have any questions or concerns regarding treatment for the above conditions, or other urologic issues, please do not hesitate to contact me. The office telephone contact is [phone]. This note is constructed using voice recognition software. While every effort has been made to ensure accuracy storage worker errors may have been included. Yours sincerely, Dr Miles Sims MD, [facility] - Urology Providers of Expert, Compassionate Care for the Genitourinary System Coding Level of Care Code Est Pt Level 4 (46054) Diagnoses Incomplete emptying of bladder R33.9 Overactive bladder N32.81 CPT Codes Post Residual Void - PVR CPT Code: 01044-Hzsn Void Residual by ultrasound ([id number])
== END 2023-09-23 16:18 | disposition home or self-care (01) ==
PROVIDERS: PCP Internal Medicine; Visit Provider Urology
DX: R33.9 Retention of urine, unspecified (principal); N32.81 Overactive bladder
CPT/HCPCS: 99213

== ENCOUNTER → 2023-09-23 15:42 | Outpatient (BNVA) | payer MEDICARE, MEDICAID, SELFPAY | PROVIDERS: PCP Internal Medicine; Visit Provider Urology | DX: R33.9 Retention of urine, unspecified (principal); N32.81 Overactive bladder | CPT/HCPCS: 51798; 99212 ==

== ENCOUNTER 2023-10-01 15:56 | Outpatient (AMB) | payer MEDICARE, MEDICAID, SELFPAY ==
--- NOTE | 2023-10-01 16:00 | AM.OFFVISNUR ---
Intake Intake Visit Reasons: B-12 Intake Note: Pt arrived for monthly B-12 injection Allergies No Known Allergies [No Known Allergies*] Allergy (Verified 09/23/23 15:53) Office Meds cyanocobalamin (vitamin B-12) 1,000 mcg/mL injection solution Performing Provider: Nora Castillo MD Performing Location: [facility] Administered by: Ania Staples RN on 10/01/23 16:01 Dose Route Admin Location Dispensed Lot Number Expiration Date NDC Counterintelligence Specialist 1,000 mcg IM left deltoid 1 mL [id number] 07/24/25 88313-587-79 GIANNI GONZALES Coding Assessment & Plan Assessment & Plan Orders: Orders AMB Vitamin B12 Injection Patient Supplied Today E53.8 - Deficiency of other specified B group vitamins Medications: New cyanocobalamin (vitamin B-12) 1,000 mcg IM ONCE 1 mL 0RF E53.8 - Deficiency of other specified B group vitamins
== END 2023-10-01 16:04 | disposition home or self-care (01) ==
PROVIDERS: PCP Internal Medicine; Visit Provider Internal Medicine
DX: E53.8 Deficiency of other specified B group vitamins (principal)
CPT/HCPCS: 96372; J3420

== ENCOUNTER 2023-10-13 08:03 | Outpatient (AMB) | payer MEDICARE, MEDICAID, SELFPAY ==
--- NOTE | 2023-10-13 08:00 | MHC.PC.OV ---
Vital Signs 10/13/23 08:01 Height 5 ft 7 in Weight 196 lb BMI 30.7 BP 100/70 Blood Pressure Location Rt brachial Position Sitting Pulse 66 Pulse Source Pulse Oximeter Pulse Oximetry (%) 97 Oxygen Delivery Method Room Air Intake Visit Reasons: Annual PE Intake Note: Pt is here today for his PE Allergies No Known Allergies [No Known Allergies*] Allergy (Verified 10/13/23 08:28) Medication List - Last Reconciled 10/13/23 by Nora Castillo MD acetaminophen ER 650 mg PO Q8H PRN aspirin 81 mg PO QAM atorvastatin 10 mg PO BEDTIME bisacodyl (Dulcolax (bisacodyl)) 20 mg (4 x 5 mg) PO ONCE 1 day blood sugar diagnostic (Contour Next Test Strips) use one strip twice a day to check blood sugar before meals cholecalciferol (vitamin D3) 50 mcg orally in AM; cyanocobalamin (vitamin B-12) 1,000 mcg IM Q4W 30 days dextromethorphan-guaifenesin 10-200 mg 2 tab-caps (2 x 10-200 mg) PO Q8H PRN diclofenac sodium 1% 2 grams topical QID PRN docusate sodium 200 mg (2 x 100 mg) PO QAM finasteride 5 mg PO DAILY 90 days gabapentin 600 mg PO BID insulin degludec (Tresiba FlexTouch U-200 insulin) 42 units (0.21 mL) subcut QAM lancets (Safety Lancets) To test blood sugars twice a day lisinopril 5 mg orally IN AM; magnesium hydroxide ([place] Milk of Magnesia) 1,200 mg (15 mL) PO DAILY PRN meloxicam 7.5 mg PO DAILY PRN metformin 1,000 mg PO BID mirabegron ER 50 mg PO DAILY 90 days pen needle, diabetic As directed to inject insulin once a day polyethylene glycol 3350 (Miralax) 238 grams PO ONCE sennosides (senna) 17.2 mg (2 x 8.6 mg) PO BEDTIME PRN terazosin 10 mg PO DAILY 90 days Tobacco use date assessed: 10/13/23 Fall risk assessment: No Falls in past year Last assessed Fall Risk: 10/13/23 Dental Screening Dental Screen Date: 10/13/23 Did you have a dental visit in the last 12 months?: No Was dental information given to patient?: Patient has dentist HPI Annual PE HPI Details 78-year-old male with past medical history of diabetes, impaired cognitive ability, overactive bladder, alcohol induced polyneuropathy, hypertension, dyslipidemia, history of CVA with gait instability, here today for physical exam. He is scheduled for a screening colonoscopy next month at [facility]. Has had 2 COVID vaccines but does not want to get the booster, reminded to get his yearly flu shot, and advised to get Prevnar 20., up-to-date with his tetanus and shingles vaccine. Currently being followed for moderate to severe aortic valve stenosis by Cardiology. [facility] Medical History (Updated 10/20/23 @ 03:37 by Nora Castillo MD) Moderate to severe aortic stenosis Systolic murmur Diabetes mellitus, with long-term current use of insulin Impaired cognitive ability Anemia Nocturia Urinary urgency Weak urinary stream Incomplete emptying of bladder Vitamin D deficiency Encounter for general adult medical examination with abnormal findings Gait instability Alcohol-induced polyneuropathy Arthralgia Essential hypertension Dyslipidemia History of CVA with residual deficit Surgical History History of ventral hernia repair Hx of cholecystectomy Family History Father Unknown family medical history Mother Unknown family medical history Social History Housing: Assisted Living Facility Alcohol intake: never Patient Tobacco Use Status: Never used Tobacco e-Cigarette/Vaping Use: Never Used Second Hand Smoke Exposure: No Current occupational status: disabled Cognitive needs: No Hearing needs: Yes Vision needs: Yes Questionnaire PHQ-9 Over the last 2 weeks, how often have you been bothered by any of the following problems? 1. Little interest or pleasure in doing things: not at all 2. Feeling down, depressed, or hopeless: not at all 3. Trouble falling or staying asleep, or sleeping too much: not at all 4. Feeling tired or having little energy: not at all 5. Poor appetite or overeating: not at all 6. Feeling bad about yourself - or that you are a failure or have let yourself or your family down: not at all 7. Trouble concentrating on things, such as reading the newspaper or watching television: not at all 8. Moving or speaking so slowly that other people could have noticed. Or the opposite - being so fidgety or restless that you have been moving around a lot more than usual: not at all 9. Thoughts that you would be better off or of hurting yourself in some way: not at all Total score: 0 Depression Screening Interpretation: Negative Depression Screening Done: Yes 80486 - PHQ-9 Billing: Yes Source: Developed by Drs. Thierry Vela, Enriqueta Mosley, Isaías Mccloud and colleagues, with an educational hitesh from [employer]. Thrive Questionnaire Date Thrive assessed: 10/13/23 I am a: Patient What is your living situation today?: I have a steady place to live Within the past 12 months, did the food you bought not last and you didn't have the money to get more?: Never true Within the past 12 months, did you worry whether your food would run out before you got money to buy more?: Never true Do you have trouble paying for medicines?: No Do you have trouble getting transportation to medical appointments?: Yes Do you have trouble paying your heating and electricity bill?: No Do you have trouble taking care of your child, family member or friend?: No Do you have trouble with day-to-day activities such as bathing, preparing meals, shopping, managing finances, etc.?: Yes Are you currently unemployed and looking for a job?: No Are you interested in more education?: No THRIVE Score: 1 AUDIT C Alcohol Use Questionnaire (AUDIT-C) 1. How often do you have a drink containing alcohol?: Never Total Score: 0 MEERA-7 AMB Questionnaire MEERA-7 Date MEERA - 7 assessed: 10/13/23 Feeling nervous, anxious, or on edge: 0 = Not at all Not being able to stop or control worryin = Not at all Worrying too much about different things: 0 = Not at all Trouble relaxin = Not at all Being so restless that it is hard to sit still: 1 = Several days Becoming easily annoyed or irritable: 0 = Not at all Feeling afraid as if something awful might happen: 0 = Not at all Total MEERA-7 score (0-4 normal; 5-9 mild; 10-14 moderate; 15-21 severe): 1 Source: Developed by Drs. Thierry Vela, Enriqueta Mosley, Isaías Mccloud and colleagues, with an educational hitesh from [employer]. MEERA-7 Assessment Billing MEERA-7 Assessment Tool: MEERA-7 Assessment 69033 Review of Systems Const Reports no additional complaints ENT Reports no additional complaints Card Reports no additional complaints Resp Reports no additional complaints GI Denies abdominal pain, Denies melena, Denies bloating, Denies change in bowel habits and Denies heartburn Reports no additional complaints Musc Reports no additional complaints Skin/Breast Reports system reviewed and no additional complaints, except as documented Neuro Reports no additional complaints and Reports Abnormal speech present Psych Reports no additional complaints Endo Reports no additional complaints Alen/Lymph Denies easy bleeding and Denies easy bruising Aller/Immun Reports no additional complaints Physical exam (Primary Care) Vital Signs: Last Vital Signs Pulse 66 10/13/23 08:01 BP 100/70 10/13/23 08:01 Pulse Ox 97 10/13/23 08:01 Oxygen Delivery Method Room Air 10/13/23 08:01 BMI result Body Mass Index 30.7 Tobacco/Smoking Status: Tobacco use Status Tobacco use date assessed 10/13/23 10/13/23 08:15 Patient Tobacco Use Status Never used Tobacco 10/13/23 08:00 e-Cigarette/Vaping Use Never Used 10/13/23 08:00 PHQ-9: PHQ-9 Score PHQ-9: Total score 0 10/13/23 08:30 Depression Screening Interpretation: Negative Thrive Assessment: Date of Thrive Assessment Date Thrive assessed 10/13/23 10/13/23 08:30 Advance Care Planning discussion: Exists, not on file Const Other: Awake, able to answer simple questions, has garbled speech, accompanied by caregiver, wheelchair borne General: comfortable, no acute distress and other (Wheelchair borne, stands for short amounts of time with assistance) Nutritional Appearance: obese Limitations: language barrier (Garbled speech), physical limitations and wheelchair HENMT Head: Yes normocephalic Ears: external ears normal General nose exam: Normal external nose present Face and sinus: Yes face symmetric Mouth: Normal oral and palatal mucosa present Teeth and gingiva: edentulous Eyes General: appearance normal, both eyes and all related structures Neck Neck: Yes full ROM, Yes no lymphadenopathy and Yes supple Resp Effort & Inspection: normal respiratory effort Auscultation: clear to auscultation bilaterally Cardio Rate: regular rate Rhythm: regular rhythm Heart sounds: S1 normal heart sound present, S2 normal heart sound present and Murmur heart sound present systolic GI Inspection: Yes obesity Palpation (GI): Soft to palpation, nontender, no guarding and no masses Auscultation: normal bowel sounds General: Yes no CVA tenderness Back/Spine/Pelvis Back: no CVA tenderness and No back tenderness Skin General skin exam: no rashes or lesions noted Neuro General: CN's II-XI intact bilaterally Speech: Abnormal speech present Gait exam (Neuro): Assisted gait required Gait assisted method: wheelchair bound Extrem Other: No gross bone deformity, crepitus noted in both knees Results AMB Hemoglobin A1c AMB Hemoglobin A1c 7.3 % Last Edit by Gail De La Fuente CMA on 10/13/23 08:21 Results Reviewed Results Reviewed: Laboratory Last Values Hgb A1c (Clinic) 7.3 % (4.0-6.0) H 10/13/23 08:09 Assessment and Plan Assessment & Plan (1) Annual visit for general adult medical examination with abnormal findings: Code(s): Z00.01 - Encounter for general adult medical examination with abnormal findings Plan: Advised to get fasting labs done up-to-date with his diabetes retinopathy screening, see and diabetes foot exam yearly. Take adequate calcium in diet and vitamin-D 3 at 2000 IU per cap once a day, in addition to weight-bearing exercises to help maintain good muscle tone and weight control. He is scheduled for a screening colonoscopy next month, has had 2 COVID vaccine does not want to get a booster, advised to get yearly flu shot, and Prevnar 20, up-to-date with Tdap. And shingles vaccination (2) Diabetes mellitus, with long-term current use of insulin: Code(s): E11.9 - Type 2 diabetes mellitus without complications; Z79.4 - director long term care (current) use of insulin Plan: Hemoglobin A1c today at 7.3%, continue with Tresiba 42 units in a.m., and continue metformin 1000 mg 1 tablet twice a day. Up-to-date with his diabetes retinopathy screening and yearly diabetes foot exam (3) Moderate to severe aortic stenosis: Code(s): I35.0 - Nonrheumatic aortic (valve) stenosis Plan: Currently followed by cardiology (4) Impaired cognitive ability: Code(s): R41.89 - Other symptoms and signs involving cognitive functions and awareness (5) Alcohol-induced polyneuropathy: Code(s): G62.1 - Alcoholic polyneuropathy Plan: Currently on gabapentin (6) Essential hypertension: Code(s): I10 - Essential (primary) hypertension Plan: Blood pressure at goal of less than 130/80. Continue with current medication. Reinforced importance of following a low sodium diet, getting regular exercise, and lowering stress levels. (7) Dyslipidemia: Code(s): E78.5 - Hyperlipidemia, unspecified Plan: Continue atorvastatin 10 mg daily (8) History of CVA with residual deficit: Code(s): I69.30 - Unspecified sequelae of cerebral infarction Orders: Orders AMB Hemoglobin A1c 10/13/23 E11.9 - Type 2 diabetes mellitus without complications, Z79.4 - director long term care (current) use of insulin Coding Level of Care Code Est Pt Prev Care >65y(45342) Diagnoses Annual visit for general adult medical examination with abnormal findings Z00.01 Diabetes mellitus, with long-term current use of insulin E11.9; Z79.4 Moderate to severe aortic stenosis I35.0 Impaired cognitive ability R41.89 Alcohol-induced polyneuropathy G62.1 Essential hypertension I10 Dyslipidemia E78.5 History of CVA with residual deficit I69.30 Additional Codes MEERA-7 Assessment Billing - MEERA-7 Assessment Tool: MEERA-7 Assessment 07904 ([id number]) Vital Signs *Quality* - Advance Care Planning discussion: Exists, not on file ([id number])
[2023-10-13 08:01] VITALS: BP 100/70; PULSE 66; O2SAT 97; BMI 30.7
== END 2023-10-13 10:08 | disposition home or self-care (01) ==
PROVIDERS: PCP Internal Medicine; Visit Provider Internal Medicine
DX: E11.9 Type 2 diabetes mellitus without complications (principal); Z79.4 Long term (current) use of insulin
CPT/HCPCS: 1123F; 83036; 99397

== ENCOUNTER 2023-10-13 09:03 | Outpatient (REF) | payer MEDICARE, MEDICAID, SELFPAY ==
[2023-10-13 10:58] LABS: Creatinine Urine 69.31 mg/dL; Microalbumin Urine < 5.0 mg/L
== END 2023-10-13 09:04 | disposition home or self-care (01) ==
LOC: HO.LAB 09:03
PROVIDERS: Visit Provider Internal Medicine
DX: I35.0 Nonrheumatic aortic (valve) stenosis (principal); G62.1 Alcoholic polyneuropathy; I10 Essential (primary) hypertension; E78.5 Hyperlipidemia, unspecified; E11.9 Type 2 diabetes mellitus without complications; Z79.4 Long term (current) use of insulin; Z86.73 Personal history of transient ischemic attack (TIA), and cerebral infarction without residual deficits; Z86.39 Personal history of other endocrine, nutritional and metabolic disease
CPT/HCPCS: 82570

== ENCOUNTER 2023-11-05 15:43 | Outpatient (AMB) | payer MEDICARE, MEDICAID, SELFPAY ==
--- NOTE | 2023-11-05 15:59 | AM.OFFVISNUR ---
Intake Intake Visit Reasons: B12 Intake Note: Pt arrived for monthly B-12 injection Allergies No Known Allergies [No Known Allergies*] Allergy (Verified 10/13/23 08:28) Office Meds cyanocobalamin (vitamin B-12) 1,000 mcg/mL injection solution Performing Provider: Nora Castillo MD Performing Location: [facility] Administered by: Ania Staples RN on 11/05/23 16:00 Dose Route Admin Location Dispensed Lot Number Expiration Date NDC Assistant Womens Volleyball Coach 1,000 mcg IM left deltoid 1 mL [id number] 07/24/25 78650-111-00 GIANNI GONZALES Comments: Pt supplied Coding Assessment & Plan Assessment & Plan Orders: Orders AMB Vitamin B12 Injection Patient Supplied Today E53.8 - Deficiency of other specified B group vitamins Medications: New cyanocobalamin (vitamin B-12) 1,000 mcg IM ONCE 1 mL 0RF E53.8 - Deficiency of other specified B group vitamins
== END 2023-11-05 16:29 | disposition home or self-care (01) ==
PROVIDERS: PCP Internal Medicine; Visit Provider Internal Medicine
DX: E53.8 Deficiency of other specified B group vitamins (principal)
CPT/HCPCS: 96372; J3420

== ENCOUNTER 2023-12-08 15:36 | Outpatient (AMB) | payer MEDICARE, MEDICAID, SELFPAY ==
[2023-12-08 15:56] VITALS: BP 118/70; PULSE 70; TEMP 36.6; O2SAT 98
--- NOTE | 2023-12-08 15:56 | AM.OFFWIN_ITS ---
Intake Vital Signs 12/08/23 15:56 Height 5 ft 7 in BMI Reason not done Patient refused/unable BP 118/70 Blood Pressure Location Rt brachial Position Sitting Pulse 70 Pulse Source Pulse Oximeter Temp 97.8 F Temp Source Temporal Artery Scan Pulse Oximetry (%) 98 Oxygen Delivery Method Room Air Intake Visit Reasons: EP RT Foot injury/bruise Intake Note: pt is here for right foot injury Patient Tobacco Use Status: Never used Tobacco Allergies No Known Allergies [No Known Allergies*] Allergy (Verified 12/08/23 15:57) Do you need a note to return to daycare/school/sports/work: No HPI HPI Comments History of Present Illness Details Patient presents to the walk-in today for sick visit [facility] Staff notes they noticed a bruise to the top of his 3rd and 4th toes yesterday, brought him today for evaluation Denies known injury Patient denies pain with palpation or movement of the does Staff reports he was able to do activities of daily living including standing pivot at baseline today Denies fevers, chill PFSH Medical History (Updated 12/08/23 @ 16:36 by Maraina Cho APRN, DIRECTOR OF SECURITY) Moderate to severe aortic stenosis Systolic murmur Diabetes mellitus, with long-term current use of insulin Impaired cognitive ability Anemia Nocturia Urinary urgency Weak urinary stream Incomplete emptying of bladder Vitamin D deficiency Encounter for general adult medical examination with abnormal findings Gait instability Alcohol-induced polyneuropathy Arthralgia Essential hypertension Dyslipidemia History of CVA with residual deficit Surgical History History of ventral hernia repair Hx of cholecystectomy Family History Father Unknown family medical history Mother Unknown family medical history Social History Housing: Assisted Living Facility Alcohol intake: never Patient Tobacco Use Status: Never used Tobacco e-Cigarette/Vaping Use: Never Used Second Hand Smoke Exposure: No Current occupational status: disabled Cognitive needs: No Hearing needs: Yes Vision needs: Yes Review of Systems Const All systems reviewed & are unremarkable except as noted in HPI and below Physical Exam Vital Signs: Last Vital Signs Temp 97.8 F 12/08/23 15:56 Pulse 70 12/08/23 15:56 BP 118/70 12/08/23 15:56 Pulse Ox 98 12/08/23 15:56 Oxygen Delivery Method Room Air 12/08/23 15:56 General: awake, alert, oriented. Answers questions appropriately. Fully engaged in examination. Skin: warm, dry, intact. No wounds, cuts, lacerations. No redness, lymphangitis, warmth or drainage. HEENT: Normocephalic. Hearing intact. Cardiac: External chest normal in appearance. Respiratory: No cough, audible wheezing or stridor. Abdomen: without gross distension. MS: Bruising across top of 3rd and 4th toes of the right foot. Nontender to palpation. CMS intact. Neurological: Oriented to person, place, time and situation. Thought process intact. Uses wheelchair for ambulation at baseline Psychiatric: Appropriate mood and affect. Good judgment and insight. Assessment & Plan Assessment & Plan (1) Bruise of toe: Code(s): S90.129A - Contusion of unspecified lesser toe(s) without damage to nail, initial encounter Plan Bruise to right toes Apply ice as tolerated Monitor for worsening symptoms including swelling, redness, streaking up the leg, discharge, pain Return for any new or worsening symptoms. Coding Level of Care Code Est Pt Level 3 (52565) Diagnoses Bruise of toe S90.129A
== END 2023-12-08 16:46 | disposition home or self-care (01) ==
PROVIDERS: PCP Internal Medicine; Visit Provider Registered Nurse Emergency
DX: S90.129A Contusion of unspecified lesser toe(s) without damage to nail, initial encounter (principal)
CPT/HCPCS: 99213

== ENCOUNTER 2023-12-10 15:49 | Outpatient (AMB) | payer MEDICARE, MEDICAID, SELFPAY ==
--- NOTE | 2023-12-11 06:55 | AM.OFFVISNUR ---
Intake Intake Visit Reasons: shot Intake Note: Pt arrived for monthly B-12 injection 12/10/23 at 4pm Allergies No Known Allergies [No Known Allergies*] Allergy (Verified 12/08/23 15:57) Office Meds cyanocobalamin (vitamin B-12) 1,000 mcg/mL injection solution Performing Provider: Nora Castillo MD [facility] Administered by: Ania Staples RN on 12/10/23 16:10 Dose Route Admin Location Dispensed Lot Number Expiration Date NDC Director [employer] 1,000 mcg IM 1 mL [id number] 07/24/25 60702-552-81 GIANNI GONZALES Comments: Pt supplied Coding Assessment & Plan Assessment & Plan Orders: Orders AMB Vitamin B12 Injection Patient Supplied 12/10/23 E53.8 - Deficiency of other specified B group vitamins Medications: New cyanocobalamin (vitamin B-12) 1,000 mcg IM ONCE 1 mL 0RF E53.8 - Deficiency of other specified B group vitamins
== END 2023-12-10 16:50 | disposition home or self-care (01) ==
PROVIDERS: PCP Internal Medicine
DX: E53.8 Deficiency of other specified B group vitamins (principal)
CPT/HCPCS: 96372; J3420

== ENCOUNTER 2023-12-11 16:20 | Outpatient (AMB) | payer MEDICARE, MEDICAID, SELFPAY ==
--- NOTE | 2023-12-11 16:22 | AM.OFFWIN_ITS ---
Intake Vital Signs 12/11/23 16:23 Height 5 ft 7 in BMI Reason not done Patient refused/unable BP 102/70 Blood Pressure Location Rt brachial Position Sitting Pulse 80 Pulse Source Pulse Oximeter Temp 97.8 F Temp Source Oral Pulse Oximetry (%) 94 Oxygen Delivery Method Room Air Intake Visit Reasons: EP hard breathing cough chest congestion Patient Tobacco Use Status: Never used Tobacco Allergies No Known Allergies [No Known Allergies*] Allergy (Verified 12/08/23 15:57) HPI HPI Comments History of Present Illness Details 78 y/o male patient who presents to walk in clinic with c/o Cough, SOB, wheezing and chest tightness x 2 days. [facility], LAT[facility] Medical History (Updated 12/08/23 @ 16:36 by Mariana Cho, CORPORATE LICENSED BROKER, MANAGER MALL) Moderate to severe aortic stenosis Systolic murmur Diabetes mellitus, with long-term current use of insulin Impaired cognitive ability Anemia Nocturia Urinary urgency Weak urinary stream Incomplete emptying of bladder Vitamin D deficiency Encounter for general adult medical examination with abnormal findings Gait instability Alcohol-induced polyneuropathy Arthralgia Essential hypertension Dyslipidemia History of CVA with residual deficit Surgical History History of ventral hernia repair Hx of cholecystectomy Family History Father Unknown family medical history Mother Unknown family medical history Social History Housing: Assisted Living Facility Alcohol intake: never Patient Tobacco Use Status: Never used Tobacco e-Cigarette/Vaping Use: Never Used Second Hand Smoke Exposure: No Current occupational status: disabled Cognitive needs: No Hearing needs: Yes Vision needs: Yes Review of Systems Const All systems reviewed & are unremarkable except as noted in HPI and below Physical Exam Vital Signs: Last Vital Signs Temp 97.8 F 12/11/23 16:23 Pulse 80 12/11/23 16:23 BP 102/70 12/11/23 16:23 Pulse Ox 94 12/11/23 16:23 Oxygen Delivery Method Room Air 12/11/23 16:23 Const General: in distress and ill appearing; No comfortable Nutritional Appearance: overweight Orientation/consciousness: patient oriented x3 HEENT Head: Yes normocephalic Ears: external ears normal and TM's normal bilaterally General nose exam: Normal nasal mucous membranes and turbinates present Face and sinus: Yes sinuses nontender Mouth: moist mucous membranes Throat: Yes postnasal drainage Resp Effort & Inspection: not able to speak in complete sentences, audible wheezes and Actively coughing Auscultation: no crackles, no rales, rhonchi and wheezes Cardio Heart sounds: S1 normal heart sound present and S2 normal heart sound present Neuro General: patient oriented x3 Psych Affect: normal affect Attitude: cooperative Office Procedures Nebulizer Treatment Nebulizer Treatment 39375-[id number]/MDI RX initial, or Nebulizer Subsequent Treatment Office Meds ipratropium 0.5 mg-albuterol 3 mg (2.5 mg base)/3 mL nebulization soln Performing Provider: Cherry Traore NP Performing Location: [facility] Administered by: Cherry Traore NP on 12/11/23 16:38 Dose Route Admin Location Dispensed Lot Number Expiration Date NDC Global Sales Manager 3 mL inhalation 3 mL 04/22/25 43977-916-96 [employer] Assessment & Plan Assessment & Plan (1) Cough in adult: Code(s): R05.9 - Cough, unspecified Plan: - Continue taking Tussin for Cough relief. - Warm fluids with Honey (2) Wheezing on auscultation: Code(s): R06.2 - Wheezing Plan: Pt's condition improved after Neb Treatment in the office. Pt able to speak in complete sentences, Breathing better. Pt's wheezing mildly subsided, still has Expiratory wheezing and Rhonchi. Will start Abx and Treat empirically for Pneumonia. Orders: Orders AMB Nebulizer Treatment Today R05.9 - Cough, unspecified, R06.2 - Wheezing Medications: New prednisone 50 mg PO DAILY 5 days 5 tabs 0RF azithromycin 500 mg PO DAILY 3 days 3 tabs 0RF doxycycline hyclate 100 mg PO BID 10 days 20 caps 0RF albuterol sulfate 90 mcg/actuation 2 puffs inhalation Q4-6H PRN 6.7 grams 0RF shortness of breath or wheezing R05.9 - Cough, unspecified, R06.2 - Wheezing Coding Level of Care Code Est Pt Level 4 (69844) Diagnoses Cough in adult R05.9 Wheezing on auscultation R06.2 CPT Codes Nebulizer Treatment - Nebulizer Treatment, initial or subsequent: 01587- Nebulizer/MDI RX initial, or Nebulizer Subsequent Treatment ([id number]) Time Spent (min) 20
[2023-12-11 16:23] VITALS: BP 102/70; PULSE 80; TEMP 36.6; O2SAT 94
== END 2023-12-11 17:04 | disposition home or self-care (01) ==
PROVIDERS: PCP Internal Medicine; Visit Provider Nurse Practitioner Family
DX: R05.9 Cough, unspecified (principal); R06.2 Wheezing
CPT/HCPCS: 94640; 99214; J7620

== ENCOUNTER 2024-01-07 15:49 | Outpatient (AMB) | payer MEDICARE, MEDICAID, SELFPAY ==
--- NOTE | 2024-01-07 16:00 | MHC.OFFVIS ---
Intake Visit Reasons: B12 Allergies No Known Allergies [No Known Allergies*] Allergy (Verified 12/08/23 15:57) [facility] Medical History (Updated 12/08/23 @ 16:36 by Mariana Cho APRN, MULTICULTURAL SERVICES LIBRARIAN) Moderate to severe aortic stenosis Systolic murmur Diabetes mellitus, with long-term current use of insulin Impaired cognitive ability Anemia Nocturia Urinary urgency Weak urinary stream Incomplete emptying of bladder Vitamin D deficiency Encounter for general adult medical examination with abnormal findings Gait instability Alcohol-induced polyneuropathy Arthralgia Essential hypertension Dyslipidemia History of CVA with residual deficit Surgical History History of ventral hernia repair Hx of cholecystectomy Family History Father Unknown family medical history Mother Unknown family medical history Social History Housing: Assisted Living Facility Alcohol intake: never Patient Tobacco Use Status: Never used Tobacco e-Cigarette/Vaping Use: Never Used Second Hand Smoke Exposure: No Current occupational status: disabled Cognitive needs: No Hearing needs: Yes Vision needs: Yes Office Meds cyanocobalamin (vitamin B-12) 1,000 mcg/mL injection solution Performing Provider: Nora Castillo MD Performing Location: [facility] Administered by: Fransisca Figueroa on 01/07/24 16:06 Dose Route Admin Location Dispensed Lot Number Expiration Date NDC Non Destructive Testing Inspector 1,000 mcg IM 1 mL [id number] 08/12/25 45691-797-37 GIANNI GONZALES Assessment & Plan Assessment & Plan (1) Alcohol-induced polyneuropathy: Code(s): G62.1 - Alcoholic polyneuropathy Category: Medical (2) Diabetes mellitus, with long-term current use of insulin: Code(s): E11.9 - Type 2 diabetes mellitus without complications; Z79.4 - care home (current) use of insulin Category: Medical Orders: Orders AMB Vitamin B12 Injection Patient Supplied 01/07/24 E11.9 - Type 2 diabetes mellitus without complications, G62.1 - Alcoholic polyneuropathy, Z79.4 - sand caster apprentice (current) use of insulin Coding Diagnoses Alcohol-induced polyneuropathy G62.1 Diabetes mellitus, with long-term current use of insulin E11.9; Z79.4
--- NOTE | 2024-01-08 10:35 | AM.OFFVISNUR ---
Intake Visit Reasons: B12 Allergies No Known Allergies [No Known Allergies*] Allergy (Verified 12/08/23 15:57) Nursing Note Pt arrived medication Vitamin B12 given to left deltoid on 01/07/24. Office Meds cyanocobalamin (vitamin B-12) 1,000 mcg/mL injection solution Performing Provider: Nora Castillo MD Performing Location: [facility] Administered by: Fransisca Figueroa on 01/07/24 16:06 Dose Route Admin Location Dispensed Lot Number Expiration Date NDC Slag Dumper 1,000 mcg IM 1 mL [id number] 08/12/25 36360-159-53 GIANNI THERA Assessment & Plan Assessment & Plan (1) Alcohol-induced polyneuropathy: Code(s): G62.1 - Alcoholic polyneuropathy Category: Medical (2) Diabetes mellitus, with long-term current use of insulin: Code(s): E11.9 - Type 2 diabetes mellitus without complications; Z79.4 - long term care social worker (current) use of insulin Category: Medical Orders: Orders AMB Vitamin B12 Injection Patient Supplied 01/07/24 E11.9 - Type 2 diabetes mellitus without complications, G62.1 - Alcoholic polyneuropathy, Z79.4 - retirement (current) use of insulin
== END 2024-01-07 16:04 | disposition home or self-care (01) ==
PROVIDERS: PCP Internal Medicine; Visit Provider Internal Medicine
DX: G62.1 Alcoholic polyneuropathy (principal); E11.9 Type 2 diabetes mellitus without complications; Z79.4 Long term (current) use of insulin
CPT/HCPCS: 96372; J3420

== ENCOUNTER 2024-01-12 08:25 | Outpatient (REF) | payer MEDICARE, MEDICAID, SELFPAY ==
[2024-01-12 10:14] LABS: MANUAL DIFF FLAG NO
[2024-01-12 10:21] LABS: Basophils Percent Auto 0.5 % (0-2); Eosinophils Absolute Auto 0.2 X10*3/uL (0.0-0.4); Hematocrit 37.2 % (42.0-52.0); Imm Gran Abs Auto 0.02 X10*3/uL (0.00-0.03); Imm Gran Pct Auto 0.3 % (0.0-0.4); Lymphocytes Absolute Auto 1.7 X10*3/uL (1.2-4.9); Lymphocytes Percent Auto 29.9 % (20-40); Mean Corpuscular HGB Conc 32.3 g/dl (31.0-36.0); Mean Corpuscular Hemoglobin 29.7 pg (27.0-33.0); Mean Corpuscular Volume 92.1 fL (80.0-98.0); Mean Platelet Volume 12.2 fL (9.4-12.4); Monocytes Absolute Auto 0.6 X10*3/uL (0.1-1.2); Monocytes Percent Auto 9.8 % (2-11); Neutrophils Absolute Auto 3.2 x10*3/uL (2.0-8.3); Neutrophils Percent Auto 55.5 % (45-73); Platelet Count 157 X10*3/uL (160-400); Red Blood Count 4.04 X10*6/uL (4.60-5.80); Red Cell Distribution Width 13.2 % (11.0-16.0); White Blood Count 5.8 X10*3/uL (4.8-10.8)
[2024-01-12 10:44] LABS: Alanine Aminotransferase 13 U/L (0-40); Anion Gap 16 (12-20); Aspartate Amino Transferase 17 U/L (5-37); Blood Urea Nitrogen 13 mg/dL (9-16); Calcium 9.5 mg/dL (8.4-10.2); Carbon Dioxide 27 mmol/L (22-29); Chloride 106 mmol/L (96-108); Cholesterol 138 mg/dL (<200); Estimated Glomerular Filt Rate 52; HDL Cholesterol 73 mg/dL (>40); Iron 64 mcg/dL (45-160); LDL Cholesterol Calculated 56 mg/dL (<100); Percent Iron Saturation 28 % (15-50); Potassium 4.6 mmol/L (3.3-5.1); Sodium 144 mmol/L (135-145); Total Iron Binding Capacity 232 mcg/dL (228-428); Triglycerides 49 mg/dL (<150); Unsaturated Iron Binding 168 ug/dL
[2024-01-12 11:00] LABS: Glucose Fasting 50 mg/dL (60-99)
[2024-01-13 15:02] LABS: Calcium, Ionized 5.1 mg/dL (4.7-5.5)
== END 2024-01-12 08:26 | disposition home or self-care (01) ==
LOC: HO.HMGCLDS 08:25
PROVIDERS: PCP Internal Medicine; Visit Provider Internal Medicine
DX: I35.0 Nonrheumatic aortic (valve) stenosis (principal); E11.9 Type 2 diabetes mellitus without complications; Z79.4 Long term (current) use of insulin; G62.1 Alcoholic polyneuropathy; I10 Essential (primary) hypertension; E78.5 Hyperlipidemia, unspecified; I69.30 Unspecified sequelae of cerebral infarction; Z86.39 Personal history of other endocrine, nutritional and metabolic disease
CPT/HCPCS: 36415; 80048; 80061; 82330; 83540; 84450; 84460; 85025

== ENCOUNTER 2024-01-16 08:28 | Outpatient (AMB) | payer MEDICARE, MEDICAID, SELFPAY ==
--- NOTE | 2024-01-16 10:53 | A.OFFPC_ITS ---
Intake Visit Reasons: f/u labs I phone [phone] (isabella) Allergies No Known Allergies [No Known Allergies*] Allergy (Verified 01/16/24 11:35) Medication List - Last Reconciled 01/16/24 by Nora Castillo MD acetaminophen ER 650 mg PO Q8H PRN albuterol sulfate 90 mcg/actuation 2 puffs inhalation Q4-6H PRN aspirin 81 mg PO QAM atorvastatin 10 mg PO BEDTIME bisacodyl (Dulcolax (bisacodyl)) 20 mg (4 x 5 mg) PO ONCE 1 day blood sugar diagnostic (Contour Next Test Strips) use one strip twice a day to check blood sugar before meals cholecalciferol (vitamin D3) 50 mcg orally in AM; cyanocobalamin (vitamin B-12) 1,000 mcg IM Q4W 30 days diclofenac sodium 1% 2 grams topical QID PRN docusate sodium 200 mg (2 x 100 mg) PO QAM finasteride 5 mg PO DAILY 90 days gabapentin 600 mg PO BID guaifenesin (Tussin) 200 mg (10 mL) PO Q4H PRN insulin degludec (Tresiba FlexTouch U-200 insulin) 42 units (0.21 mL) subcut QAM lancets (Safety Lancets) To test blood sugars twice a day lisinopril 5 mg orally IN AM; magnesium hydroxide (Crawley Milk of Magnesia) 1,200 mg (15 mL) PO DAILY PRN meloxicam 7.5 mg PO DAILY PRN metformin 1,000 mg PO BID mirabegron ER 50 mg PO DAILY 90 days pen needle, diabetic As directed to inject insulin once a day polyethylene glycol 3350 (Miralax) 238 grams PO ONCE sennosides (senna) 17.2 mg (2 x 8.6 mg) PO BEDTIME PRN terazosin 10 mg PO DAILY 90 days Tobacco use date assessed: 10/13/23 Fall risk assessment: No Falls in past year Last assessed Fall Risk: 01/16/24 Dental Screening Dental Screen Date: 10/13/23 HPI f/u labs I phone [phone] (isabella) HPI Details 78-year-old male with past medical histo ry of diabetes, impaired cognitive ability, overactive bladder, alcohol induced polyneuropathy, hypertension, dyslipidemia, history of CVA with gait instability, here today for a telehealth visit together with his caregiver, Isabella . Reviewed recent fasting lab results with patient and caregiver and it was noted that his fasting glucose was 50 mg/dL during that visit. Patient however states that he has been asymptomatic, no complaints of any chest pain, lightheadedness, shortness of breath,. Unclear whether the fasting blood work was done prior to his taking his medications or afterwards. [facility] Medical History (Updated 01/16/24 @ 11:48 by Nora Castillo MD) History of vitamin D deficiency Moderate to severe aortic stenosis Systolic murmur Diabetes mellitus, with long-term current use of insulin Impaired cognitive ability Anemia Nocturia Urinary urgency Weak urinary stream Incomplete emptying of bladder Vitamin D deficiency Encounter for general adult medical examination with abnormal findings Gait instability Alcohol-induced polyneuropathy Arthralgia Essential hypertension Dyslipidemia History of CVA with residual deficit Surgical History History of ventral hernia repair Hx of cholecystectomy Family History Father Unknown family medical history Mother Unknown family medical history Social History Housing: Assisted Living Facility Alcohol intake: never Patient Tobacco Use Status: Never used Tobacco e-Cigarette/Vaping Use: Never Used Second Hand Smoke Exposure: No Current occupational status: disabled Cognitive needs: No Hearing needs: Yes Vision needs: Yes Questionnaire Thrive Questionnaire Date Thrive assessed: 10/13/23 MEERA-7 AMB Questionnaire MEERA-7 Date MEERA - 7 assessed: 10/13/23 Source: Developed by Drs. Thierry Vela, Enriqueta Mosley, Isaías Mccloud and colleagues, with an educational hitesh from [employer]. Review of Systems Const Reports no additional complaints ENT Reports no additional complaints Card Reports no additional complaints Resp Reports no additional complaints GI Denies abdominal pain, Denies melena, Denies bloating, Denies change in bowel habits and Denies heartburn Reports no additional complaints Musc Reports no additional complaints Skin/Breast Reports system reviewed and no additional complaints, except as documented Neuro Reports no additional complaints and Reports Abnormal speech present Psych Reports no additional complaints Endo Reports no additional complaints Alen/Lymph Denies easy bleeding and Denies easy bruising Aller/Immun Reports no additional complaints Physical exam (Primary Care) Tobacco/Smoking Status: Tobacco use Status Tobacco use date assessed 10/13/23 01/16/24 10:55 Patient Tobacco Use Status Never used Tobacco 01/16/24 10:55 e-Cigarette/Vaping Use Never Used 01/16/24 10:55 Thrive Assessment: Date of Thrive Assessment Date Thrive assessed 10/13/23 01/16/24 10:55 Neuro Speech: Abnormal speech present Telehealth Telehealth Telehealth Platform: [employer] Location of provider rendering services: practice address Location of patient: address on file Patient Identification confirmed using: Name, : Yes Telehealth method: video Patient verbally consented to treatment: Yes Patient verbally consented to billing insurance company: Yes Patient informed of any privacy concerns related to visit: Yes Minutes spent on Phone/Video with Pt.: 15 Results Reviewed Results Reviewed: Name: Jose Rodriguez Age/Sex: 78/M : 1945 Unit#: [id number] Attend Dr: Nora Castillo MD Re01/12/24 Status: DEP REF Location: [facility] Disch: SPEC : [id number] AMANDA: 01/12/24 STATUS: COMP REQ : [id number] RECD: 01/12/24-[address]: Nora Castillo MD COMP: 01/12/24 ENTERED: 01/12/[address]: ORDERED: CBC Auto Diff Test Result Flag Reference WBC 5.8 4.8-10.8 X10*3/uL RBC 4.04 L 4.60-5.80 X10*6/uL HGB 12.0 L 14.0-18.0 g/dl HCT 37.2 L 42.0-52.0 % MCV 92.1 80.0-98.0 fL MCH 29.7 27.0-33.0 pg MCHC 32.3 31.0-36.0 g/dl RDW 13.2 11.0-16.0 % PLT 157 L 160-400 X10*3/uL MPV 12.2 9.4-12.4 fL Neut Pct Auto 55.5 45-73 % ImGran Pct Auto 0.3 0.0-0.4 % Lymp Pct Auto 29.9 20-40 % Owsley Pct Auto 9.8 2-11 % Eos Pct Auto 4.0 0-4 % Baso Pct Auto 0.5 0-2 % NRBC Pct Auto 0.0 0.0-0.2 /100WBC ANC Neut Abs # 3.2 2.0-8.3 x10*3/uL ImGran Abs Auto 0.02 0.00-0.03 X10*3/uL Lymph Abs Auto 1.7 1.2-4.9 X10*3/uL Owsley Abs Auto 0.6 0.1-1.2 X10*3/uL Eos Abs Auto 0.2 0.0-0.4 X10*3/uL Baso Abs Auto 0.0 0.0-0.2 X10*3/uL NRBC Abs Auto 0.000 0.0-0.012 X10*3/uL Name: Jose Rodriguez Age/Sex: 78/M : 1945 Unit#: [id number] Attend Dr: Nora Castillo MD Re01/12/24 Status: DEP REF Location: [facility] Disch: SPEC : [id number] AMANDA: 01/12/24 STATUS: COMP REQ : [id number] RECD: 01/12/[address]: Nora Castillo MD COMP: 01/12/24 ENTERED: 01/12/[address]: ORDERED: Met Prof Fast, IRON PROF, AST, ALT, Lipid Panel Test Result Flag Reference Sodium 144 135-145 mmol/L Potassium 4.6 3.3-5.1 mmol/L CL 106 96-108 mmol/L CO2 27 22-29 mmol/L Gap 16 12-20 BUN 13 9-16 mg/dL Creat 1.32 0.5-1.4 mg/dL EGFR 52 NOTE: For -French individuals, multiply the result by 1.210. Chronic Kidney Disease: Estimated GFR < 60 mL/min/1.73m2 Severe Kidney Disease: Estimated GFR < 15 mL/min/1.73m2 FBS 50 *L 60-99 mg/dL Critical value for FBS: Results called to and read back by: LOE Person calling: CHULA Date: 01/12/24 Time: 1059 CA 9.5 # 8.4-10.2 mg/dL Iron 64 45-160 mcg/dL TIBC 232 228-428 mcg/dL Saturation 28 15-50 % UIBC 168 ug/dL AST (GOT) 17 5-37 U/L ALT (GPT) 13 0-40 U/L Triglyceride 49 <150 mg/dL Desirable Triglyceride: less than 150 mg/dL Borderline High Triglyceride 150-199 mg/dL High Triglyceride: 200-499 mg/dL Very High Triglyceride: greater than or equal to 5OO mg/dL Cholesterol 138 <200 mg/dL Desirable Cholesterol: less than 200 mg/dL Borderline High Cholesterol: 200-239 mg/dL High Cholesterol: greater than 239 mg/dL LDL Calculated 56 <100 mg/dL Desirable LDL: less than 100 mg/dL Near Optimal/Above Optimal LDL: 110-129 mg/dL Borderline High LDL: 130-159 mg/dL High LDL: 160-189 mg/dL Very High LDL: greater than or equal to 190 mg/dL HDL 73 >40 mg/dL Desirable HDL: greater than 40 mg/dL Note: This HDL assay may give artificially low results in patients with liver disease. Assessment and Plan Assessment & Plan (1) Diabetes mellitus, with long-term current use of insulin: Code(s): E11.9 - Type 2 diabetes mellitus without complications; Z79.4 - intermediate project manager (current) use of insulin Qualifiers: Diabetes mellitus complication status: with hypoglycemia Diabetes mellitus type: type 2 Plan: Ordered hemoglobin A1c and a repeat fasting glucose in a week. Fasting blood sugar levels in obtain by [facility] in a.m. has been labile ranging from 74-171 mg/dL. Patient's caregiver however is not sure whether this is obtained before breakfast or after breakfast. Advised to inform the nurse was checking his blood sugar to check it before breakfast or at least 2 hours after eating and noted down what time she is checking blood sugar levels. Continued on current dose of Tresiba and metformin, rec adherence to healthy eating habits again advised. Will see him back for follow-up in 04/2024 after repeat fasting labs done (2) B12 deficiency: Code(s): E53.8 - Deficiency of other specified B group vitamins Plan: Ordered B12 level to be drawn in a week (3) Hypoglycemic episode in patient with diabetes mellitus: Code(s): E11.649 - Type 2 diabetes mellitus with hypoglycemia without coma Plan: Had an episode of fasting glucose at 50 mg/dL on recent lab done . Spoke with caregiver Isabella who was not aware if patient already was given his Tresiba and metformin prior to coming in to get fasting labs done during that time. Will repeat another fasting blood sugar and hemoglobin A1c next week, reminded caregiver to bring him 1st thing in the morning with the labs open at 06:30 and not to give him with insulin and metformin prior to getting blood draw, needs to be fasting at least 10 hours prior to getting labs done. May take a sip of water. (4) History of vitamin D deficiency: Code(s): Z86.39 - Personal history of other endocrine, nutritional and metabolic disease Plan: Vitamin-D level ordered to be done next week, continue with cholecalciferol at the same dose (5) Dyslipidemia: Code(s): E78.5 - Hyperlipidemia, unspecified Plan: Continue atorvastatin 10 mg at bedtime, fasting labs ordered to be drawn to check his lipids, electrolytes and fasting glucose next month Orders: Orders Vitamin D 25-OH Total 1 Week E11.9 - Type 2 diabetes mellitus without complications, E53.8 - Deficiency of other specified B group vitamins, Z79.4 - care home (current) use of insulin, Z86.39 - Personal history of other endocrine, nutritional and metabolic disease Alanine Aminotransferase 04/23/24 D64.9 - Anemia, unspecified, E11.9 - Type 2 diabetes mellitus without complications, E53.8 - Deficiency of other specified B group vitamins, E78.5 - Hyperlipidemia, unspecified, G62.1 - Alcoholic polyneuropathy, I10 - Essential (primary) hypertension, I69.30 - Unspecified sequelae of cerebral infarction, Z79.4 - intermediate project manager (current) use of insulin Aspartate Amino Transferase 04/23/24 D64.9 - Anemia, unspecified, E11.9 - Type 2 diabetes mellitus without complications, E53.8 - Deficiency of other specified B group vitamins, E78.5 - Hyperlipidemia, unspecified, G62.1 - Alcoholic polyneuropathy, I10 - Essential (primary) hypertension, I69.30 - Unspecified sequelae of cerebral infarction, Z79.4 - intermediate project manager (current) use of insulin Basic Metabolic Panel Fasting 04/23/24 D64.9 - Anemia, unspecified, E11.9 - Type 2 diabetes mellitus without complications, E53.8 - Deficiency of other specified B group vitamins, E78.5 - Hyperlipidemia, unspecified, G62.1 - Alcoholic polyneuropathy, I10 - Essential (primary) hypertension, I69.30 - Unspecified sequelae of cerebral infarction, Z79.4 - care home (current) use of insulin IRON PROFILE 04/23/24 D64.9 - Anemia, unspecified, E11.9 - Type 2 diabetes mellitus without complications, E53.8 - Deficiency of other specified B group vitamins, E78.5 - Hyperlipidemia, unspecified, G62.1 - Alcoholic polyneuropathy, I10 - Essential (primary) hypertension, I69.30 - Unspecified sequelae of cerebral infarction, Z79.4 - intermediate project manager (current) use of insulin Lipid Panel 04/23/24 D64.9 - Anemia, unspecified, E11.9 - Type 2 diabetes mellitus without complications, E53.8 - Deficiency of other specified B group vitamins, E78.5 - Hyperlipidemia, unspecified, G62.1 - Alcoholic polyneuropathy, I10 - Essential (primary) hypertension, I69.30 - Unspecified sequelae of cerebral infarction, Z79.4 - care home (current) use of insulin Vitamin B12 and Folate 04/23/24 D64.9 - Anemia, unspecified, E11.9 - Type 2 diabetes mellitus without complications, E53.8 - Deficiency of other specified B group vitamins, E78.5 - Hyperlipidemia, unspecified, G62.1 - Alcoholic polyneuropathy, I10 - Essential (primary) hypertension, I69.30 - Unspecified sequelae of cerebral infarction, Z79.4 - intermediate project manager (current) use of insulin Hemoglobin A1c 1 Week E11.9 - Type 2 diabetes mellitus without complications, E53.8 - Deficiency of other specified B group vitamins, Z79.4 - intermediate project manager (current) use of insulin, Z86.39 - Personal history of other endocrine, nutritional and metabolic disease Glucose Fasting 1 Week E11.9 - Type 2 diabetes mellitus without complications, E53.8 - Deficiency of other specified B group vitamins, Z79.4 - intermediate project manager (current) use of insulin, Z86.39 - Personal history of other endocrine, nutritional and metabolic disease Vitamin B12 and Folate 1 Week E11.9 - Type 2 diabetes mellitus without complications, E53.8 - Deficiency of other specified B group vitamins, Z79.4 - intermediate project manager (current) use of insulin, Z86.39 - Personal history of other endocrine, nutritional and metabolic disease Hemoglobin A1c 04/23/24 D64.9 - Anemia, unspecified, E11.9 - Type 2 diabetes mellitus without complications, E53.8 - Deficiency of other specified B group vitamins, E78.5 - Hyperlipidemia, unspecified, G62.1 - Alcoholic polyneuropathy, I10 - Essential (primary) hypertension, I69.30 - Unspecified sequelae of cerebral infarction, Z79.4 - intermediate project manager (current) use of insulin Complete Blood Count Auto Diff 04/23/24 D64.9 - Anemia, unspecified, E11.9 - Type 2 diabetes mellitus without complications, E53.8 - Deficiency of other specified B group vitamins, E78.5 - Hyperlipidemia, unspecified, G62.1 - Alcoholic polyneuropathy, I10 - Essential (primary) hypertension, I69.30 - Unspecified sequelae of cerebral infarction, Z79.4 - intermediate project manager (current) use of insulin Microalbumin, Random (w Creat) 04/23/24 D64.9 - Anemia, unspecified, E11.9 - Type 2 diabetes mellitus without complications, E53.8 - Deficiency of other specified B group vitamins, E78.5 - Hyperlipidemia, unspecified, G62.1 - Alcoholic polyneuropathy, I10 - Essential (primary) hypertension, I69.30 - Unspecified sequelae of cerebral infarction, Z79.4 - care home (current) use of insulin Vitamin D 25-OH Total 04/23/24 D64.9 - Anemia, unspecified, E11.9 - Type 2 diabetes mellitus without complications, E53.8 - Deficiency of other specified B group vitamins, E78.5 - Hyperlipidemia, unspecified, G62.1 - Alcoholic polyneuropathy, I10 - Essential (primary) hypertension, I69.30 - Unspecified sequelae of cerebral infarction, Z79.4 - intermediate project manager (current) use of insulin Medications: Refilled atorvastatin 10 mg PO BEDTIME 90 tabs 1RF acetaminophen ER 650 mg PO Q8H PRN 30 tabs 0RF fever or pain cholecalciferol (vitamin D3) 50 mcg orally in AM; 90 caps 1RF cyanocobalamin (vitamin B-12) 1,000 mcg IM Q4W 1 mL 1RF 30 days diclofenac sodium 1% apply to affected area on left foot as directed 2 grams topical QID PRN 100 grams 1RF joint pain docusate sodium 200 mg (2 x 100 mg) PO QAM 180 caps 1RF pen needle, diabetic As directed to inject insulin once a day 100 ea 1RF E11.65 - Type 2 diabetes mellitus with hyperglycemia aspirin 81 mg PO QAM 90 tabs 1RF blood sugar diagnostic (Contour Next Test Strips) use one strip twice a day to check blood sugar before meals 100 ea 3RF E11.9 - Type 2 diabetes mellitus without complications gabapentin 600 mg PO BID 180 tabs 1RF insulin degludec (Tresiba FlexTouch U-200 insulin) 42 units (0.21 mL) subcut QAM 18 mL 3RF E11.9 - Type 2 diabetes mellitus without complications lancets (Safety Lancets) To test blood sugars twice a day 200 ea 1RF E11.9 - Type 2 diabetes mellitus without complications, Z79.4 - intermediate project manager (current) use of insulin lisinopril 5 mg orally IN AM; 90 tabs 1RF magnesium hydroxide ([place]ley Milk of Magnesia) 1,200 mg (15 mL) PO DAILY PRN 355 mL 0RF constipation meloxicam 7.5 mg PO DAILY PRN 30 tabs 2RF for joint pain sennosides (senna) 17.2 mg (2 x 8.6 mg) PO BEDTIME PRN 56 tabs 0RF constipation Discontinued polyethylene glycol 3350 (Miralax) As directed by gastroenterology department at [facility] Discontinued Reason: Order 238 grams PO ONCE 238 grams 0RF Z12.11 - Encounter for screening for malignant neoplasm of colon bisacodyl (Dulcolax (bisacodyl)) take 4 tabs at noon the day before your colonoscopy Discontinued Reason: Order 20 mg (4 x 5 mg) PO ONCE 1 day 4 tabs 0RF constipation Z12.11 - Encounter for screening for malignant neoplasm of colon Coding Level of Care Code Tele Est Pt Level 4 (04057) Complex EM visit Add On G2211 Diagnoses Diabetes mellitus, with long-term current use of insulin E11.9; Z79.4 Diabetes mellitus complication status: with hypoglycemia Diabetes mellitus type: type 2 B12 deficiency E53.8 Hypoglycemic episode in patient with diabetes mellitus E11.649 History of vitamin D deficiency Z86.39 Dyslipidemia E78.5
== END 2024-01-16 17:43 | disposition home or self-care (01) ==
LOC: HO.HMGC 08:28
PROVIDERS: PCP Internal Medicine; Visit Provider Internal Medicine
DX: E11.69 Type 2 diabetes mellitus with other specified complication (principal); Z79.4 Long term (current) use of insulin; E11.649 Type 2 diabetes mellitus with hypoglycemia without coma; E53.8 Deficiency of other specified B group vitamins; Z86.39 Personal history of other endocrine, nutritional and metabolic disease; E78.5 Hyperlipidemia, unspecified
CPT/HCPCS: 99214; G2211

== ENCOUNTER 2024-02-04 15:37 | Outpatient (AMB) | payer MEDICARE, MEDICAID, SELFPAY ==
--- NOTE | 2024-02-04 15:46 | AM.OFFVISNUR ---
Intake Visit Reasons: B12 Allergies No Known Allergies [No Known Allergies*] Allergy (Verified 01/16/24 11:35) Nursing Note Pt wheeled to room one. Administered pt's own medication Vitamin B12 to left deltoid. Office Meds cyanocobalamin (vitamin B-12) 1,000 mcg/mL injection solution Performing Provider: Nora Castillo MD Performing Location: [facility] Administered by: Fransisca Figueroa on 02/04/24 15:53 Dose Route Admin Location Dispensed Lot Number Expiration Date [place] Linen Folder 1,000 mcg IM 1 mL [id number] 08/12/25 48830-595-09 GIANNI GONZALES Assessment & Plan Assessment & Plan Orders: Orders AMB Vitamin B12 Injection Patient Supplied Today E53.8 - Deficiency of other specified B group vitamins Medications: New cyanocobalamin (vitamin B-12) 1,000 mcg IM ONCE 1 mL 0RF E53.8 - Deficiency of other specified B group vitamins
== END 2024-02-04 17:06 | disposition home or self-care (01) ==
PROVIDERS: PCP Internal Medicine; Visit Provider Internal Medicine
DX: E53.8 Deficiency of other specified B group vitamins (principal)
CPT/HCPCS: 96372; J3420

== ENCOUNTER 2024-03-04 15:44 | Outpatient (AMB) | payer MEDICARE, MEDICAID, SELFPAY ==
--- NOTE | 2024-03-04 15:57 | AM.OFFVISNUR ---
Intake Visit Reasons: B12 Allergies No Known Allergies [No Known Allergies*] Allergy (Verified 01/16/24 11:35) Nursing Note Pt own medication Vitamin B12 administered in left deltoid. Assessment & Plan Assessment & Plan Orders: Orders AMB Vitamin B12 Injection Patient Supplied Today E53.8 - Deficiency of other specified B group vitamins Medications: New cyanocobalamin (vitamin B-12) 1,000 mcg IM ONCE 1 mL 0RF E53.8 - Deficiency of other specified B group vitamins
== END 2024-03-04 16:44 | disposition home or self-care (01) ==
PROVIDERS: PCP Internal Medicine; Visit Provider Internal Medicine
DX: E53.8 Deficiency of other specified B group vitamins (principal)
CPT/HCPCS: 96372; J3420

== ENCOUNTER 2024-04-07 15:59 | Outpatient (AMB) | payer MEDICARE, MEDICAID, SELFPAY ==
--- NOTE | 2024-04-07 16:08 | A.OFFVIS_ITS ---
Intake Visit Reasons: b12 Allergies No Known Allergies [No Known Allergies*] Allergy (Verified 03/23/24 14:23) [facility] Medical History (Updated 01/16/24 @ 11:48 by Nora Castillo MD) History of vitamin D deficiency Moderate to severe aortic stenosis Systolic murmur Diabetes mellitus, with long-term current use of insulin Impaired cognitive ability Anemia Nocturia Urinary urgency Weak urinary stream Incomplete emptying of bladder Vitamin D deficiency Encounter for general adult medical examination with abnormal findings Gait instability Alcohol-induced polyneuropathy Arthralgia Essential hypertension Dyslipidemia History of CVA with residual deficit Surgical History History of ventral hernia repair Hx of cholecystectomy Family History Father Unknown family medical history Mother Unknown family medical history Social History Housing: Assisted Living Facility Alcohol intake: never Patient Tobacco Use Status: Never used Tobacco e-Cigarette/Vaping Use: Never Used Second Hand Smoke Exposure: No Current occupational status: disabled Cognitive needs: No Hearing needs: Yes Vision needs: Yes Office Meds cyanocobalamin (vitamin B-12) 1,000 mcg/mL injection solution Performing Provider: Nora Castillo MD Performing Location: [facility] Administered by: Fransisca Figueroa on 04/07/24 16:08 Dose Route Admin Location Dispensed Lot Number Expiration Date [facility] Lock Stitch Channeler 1,000 mcg IM r deltoid 1 mL [id number] 08/12/25 06955-030-03 VITRUVIAS THERA 1,000 mcg IM r deltoid 1 mL [id number] 08/12/25 15193-993-30 VITRUVIAS THERA Assessment & Plan Assessment & Plan Orders: Orders AMB Vitamin B12 Injection Patient Supplied 04/07/24 E53.8 - Deficiency of other specified B group vitamins Coding
--- NOTE | 2024-04-19 08:25 | AM.OFFVISNUR ---
Intake Visit Reasons: b12 Allergies No Known Allergies [No Known Allergies*] Allergy (Verified 03/23/24 14:23) Office Meds cyanocobalamin (vitamin B-12) 1,000 mcg/mL injection solution Performing Provider: Nora Castillo MD Performing Location: [facility] [place] Administered by: Fransisca Figueroa on 04/07/24 16:08 Dose Route Admin Location Dispensed Lot Number Expiration Date [facility] Art Framing Manager 1,000 mcg IM r deltoid 1 mL [id number] 08/12/25 27191-340-45 VITRUVIAS THERA 1,000 mcg IM r deltoid 1 mL [id number] 08/12/25 33797-881-28 VITRUVIAS THERA Assessment & Plan Assessment & Plan Orders: Orders AMB Vitamin B12 Injection Patient Supplied 04/07/24 E53.8 - Deficiency of other specified B group vitamins
== END 2024-04-07 16:11 | disposition home or self-care (01) ==
PROVIDERS: PCP Internal Medicine; Visit Provider Internal Medicine
DX: E53.8 Deficiency of other specified B group vitamins (principal)
CPT/HCPCS: J3420

== ENCOUNTER → 2024-04-07 15:59 | Outpatient (BNVA) | payer MEDICARE, MEDICAID, SELFPAY | PROVIDERS: PCP Internal Medicine; Visit Provider Internal Medicine | DX: E53.8 Deficiency of other specified B group vitamins (principal) | CPT/HCPCS: 96372 ==

== ENCOUNTER 2024-04-14 16:02 | Outpatient (AMB) | payer MEDICARE, MEDICAID, SELFPAY ==
--- NOTE | 2024-04-14 16:02 | MHC.OFFVIS ---
Intake Visit Reasons: 6M follow up r/s Intake Note: Patient is Present for Telephone Follow Up Urology Med: Terazosin, Finasteride, Myrbetriq Antibiotic Allergy:None Blood Thinner: Aspirin Allergies No Known Allergies [No Known Allergies*] Allergy (Verified 03/23/24 14:23) Medication List - Last Reconciled 04/14/24 by Miles Sims MD acetaminophen ER 650 mg PO Q8H PRN albuterol sulfate 90 mcg/actuation 2 puffs inhalation Q4-6H PRN aspirin 81 mg PO QAM atorvastatin 10 mg PO BEDTIME blood sugar diagnostic (Contour Next Test Strips) use one strip twice a day to check blood sugar before meals cholecalciferol (vitamin D3) 50 mcg orally in AM; cyanocobalamin (vitamin B-12) 1,000 mcg IM Q4W 30 days diclofenac sodium 1% 2 grams topical QID PRN docusate sodium 200 mg (2 x 100 mg) PO QAM finasteride 5 mg PO DAILY 90 days gabapentin 600 mg PO BID guaifenesin (Tussin) 200 mg (10 mL) PO Q4H PRN insulin degludec (Tresiba FlexTouch U-200 insulin) 42 units (0.21 mL) subcut QAM lancets (Safety Lancets) To test blood sugars twice a day lisinopril 5 mg orally IN AM; magnesium hydroxide ([place] Milk of Magnesia) 1,200 mg (15 mL) PO DAILY PRN meloxicam 7.5 mg PO DAILY PRN metformin 1,000 mg PO BID mirabegron ER 50 mg PO DAILY 90 days pen needle, diabetic As directed to inject insulin once a day sennosides (senna) 17.2 mg (2 x 8.6 mg) PO BEDTIME PRN terazosin 10 mg PO DAILY 90 days HPI Comments Details: Jose has a pleasant male. He is a patient of Dr. Castillo. Seen for the following urologic conditions - overactive bladder - incomplete bladder emptying BPH Telemedicine Evaluation 15 min Consultation Doximity Merissa Video Resident of facility Discussed with senior database programmer Adequate urinary control Bladder control Has urinary urge but able to make bathroom Occasional accidents Continue Myrbetriq, finasteride, terazosin Six-month follow-up office nurse-practitioner Lower urinary tract symptoms - primarily overactive bladder with incomplete emptying Current medications include finasteride and Myrbetriq and terazosin Background insulin-dependent diabetes 0 HB A1c - 02/12 7.4% [facility] Medical History (Updated 01/16/24 @ 11:48 by Nora Castillo MD) History of vitamin D deficiency Moderate to severe aortic stenosis Systolic murmur Diabetes mellitus, with long-term current use of insulin Impaired cognitive ability Anemia Nocturia Urinary urgency Weak urinary stream Incomplete emptying of bladder Vitamin D deficiency Encounter for general adult medical examination with abnormal findings Gait instability Alcohol-induced polyneuropathy Arthralgia Essential hypertension Dyslipidemia History of CVA with residual deficit Surgical History History of ventral hernia repair Hx of cholecystectomy Family History Father Unknown family medical history Mother Unknown family medical history Social History Housing: Assisted Living Facility Alcohol intake: never Patient Tobacco Use Status: Never used Tobacco e-Cigarette/Vaping Use: Never Used Second Hand Smoke Exposure: No Current occupational status: disabled Cognitive needs: No Hearing needs: Yes Vision needs: Yes Review of Systems Const All systems reviewed & are unremarkable except as noted in HPI and below Reports no additional complaints Resp Reports no additional complaints GI Reports no additional complaints Reports as per HPI Musc Reports no additional complaints Physical Exam Telemedicine evaluation Appropriate responses Regular breathing rate and rhythm HEENT Head: Yes normal to inspection Ears: hearing grossly normal bilaterally Eyes General: appearance normal, both eyes and all related structures Neck Neck: Yes normal visual inspection Chest Chest palpation & inspection: normal inspection of the chest Resp Effort & Inspection: normal respiratory effort and able to speak in complete sentences Telehealth Telehealth Telehealth Platform: [facility] Location of provider rendering services: practice address Location of patient: address on file Patient Identification confirmed using: Name, : Yes Telehealth method: video Patient verbally consented to treatment: Yes Patient verbally consented to billing insurance company: Yes Patient informed of any privacy concerns related to visit: Yes Minutes spent on Phone/Video with Pt.: 15 Assessment & Plan Assessment & Plan (1) Nocturia: Code(s): R35.1 - Nocturia Category: Medical (2) Overactive bladder: Code(s): N32.81 - Overactive bladder Category: Medical Plan Six-month follow-up nurse-practitioner Continue prostate medications Medications: Refilled mirabegron ER 50 mg PO DAILY 90 days 90 tabs 3RF finasteride 5 mg PO DAILY 90 days 90 tabs 3RF terazosin 10 mg PO DAILY 90 days 90 caps 3RF Patient Instructions: Imaging studies, laboratory and physical exam results were discussed and reviewed in detail. No major barriers to patient understanding were identified. An opportunity to ask questions regarding the treatment plan was provided. All questions were answered. The patient expressed understanding and agreement with the above treatment plan. The patient is aware they should contact our office by phone for worsening of their current condition or the appearance of new urologic symptoms. Compliance is encouraged with any medications and followup testing that is ordered. It is a privilege to participate in the urologic care of your patient. If you have any questions or concerns regarding treatment for the above conditions, or other urologic issues, please do not hesitate to contact me. The office telephone contact is [phone]. This note is constructed using voice recognition software. While every effort has been made to ensure accuracy tool and die designer errors may have been included. Yours sincerely, Dr Miles Sims MD, [facility] - Urology Providers of Expert, Compassionate Care for the Genitourinary System Coding Level of Care Code Tele Est Pt Level 3 (35084) Diagnoses Nocturia R35.1 Overactive bladder N32.81
== END 2024-04-14 16:34 | disposition home or self-care (01) ==
LOC: HO.HUSH 16:02
PROVIDERS: PCP Internal Medicine; Visit Provider Urology
DX: R35.1 Nocturia (principal); N32.81 Overactive bladder
CPT/HCPCS: 99213

== ENCOUNTER → 2024-04-14 16:02 | Outpatient (BNVA) | payer MEDICARE, MEDICAID, SELFPAY | PROVIDERS: PCP Internal Medicine; Visit Provider Urology ==

== ENCOUNTER 2024-05-05 08:49 | Outpatient (REF) | payer MEDICARE, MEDICAID, SELFPAY | END 2024-05-05 08:50 | disposition home or self-care (01) | LOC: HO.XRAY 08:49 | PROVIDERS: PCP Internal Medicine; Visit Provider Internal Medicine | DX: R13.10 Dysphagia, unspecified (principal); R05.9 Cough, unspecified | CPT/HCPCS: 96372 ==

== ENCOUNTER 2024-05-05 15:31 | Outpatient (AMB) | payer MEDICARE, MEDICAID, SELFPAY ==
--- NOTE | 2024-05-05 16:34 | AM.OFFVISNUR ---
Intake Visit Reasons: b-12 Intake Note: Pt arrived for monthly B-12 injection Allergies No Known Allergies [No Known Allergies*] Allergy (Verified 03/23/24 14:23) Office Meds cyanocobalamin (vitamin B-12) 1,000 mcg/mL injection solution Performing Provider: Nora Castillo MD [place] [facility] [place] Administered by: Ania Staples RN on 05/05/24 16:34 Dose Route Admin Location Dispensed Lot Number Expiration Date [facility] Tile Edger 1,000 mcg IM left deltoid 1 mL [id number] 07/24/25 78689-722-31 GIANNI GONZALES Comments: Pt supplied Assessment & Plan Assessment & Plan Orders: Orders AMB Vitamin B12 Injection Patient Supplied Today E53.8 - Deficiency of other specified B group vitamins Medications: New cyanocobalamin (vitamin B-12) 1,000 mcg IM ONCE 1 mL 0RF E53.8 - Deficiency of other specified B group vitamins
== END 2024-05-05 16:22 | disposition home or self-care (01) ==
LOC: HO.HMCC 15:31
PROVIDERS: PCP Internal Medicine; Visit Provider Internal Medicine
DX: E53.8 Deficiency of other specified B group vitamins (principal)
CPT/HCPCS: J3420

== ENCOUNTER 2024-06-07 15:42 | Outpatient (AMB) | payer MEDICARE, MEDICAID, SELFPAY ==
--- NOTE | 2024-06-07 15:55 | AM.OFFVISNUR ---
Intake Visit Reasons: B-12 Allergies No Known Allergies [No Known Allergies*] Allergy (Verified 03/23/24 14:23) Nursing Note Pt came in with male staff member. Vitamin B12 to left deltoid. Office Meds cyanocobalamin (vitamin B-12) 1,000 mcg/mL injection solution Performing Provider: Nora Castillo MD [place] [facility] [place] Administered by: Fransisca Figueroa on 06/07/24 15:57 Dose Route Admin Location Dispensed Lot Number Expiration Date [facility] Supervisor Anodizing 1,000 mcg IM 1 mL [id number] 08/12/25 45136-739-92 GIANNI GONZALES Assessment & Plan Assessment & Plan Orders: Orders AMB Vitamin B12 Injection Patient Supplied Today E53.8 - Deficiency of other specified B group vitamins Medications: New cyanocobalamin (vitamin B-12) 1,000 mcg IM ONCE 1 mL 0RF E53.8 - Deficiency of other specified B group vitamins
== END 2024-06-07 15:57 | disposition home or self-care (01) ==
PROVIDERS: PCP Internal Medicine; Visit Provider Internal Medicine
DX: E53.8 Deficiency of other specified B group vitamins (principal)

== ENCOUNTER → 2024-06-07 15:42 | Outpatient (BNVA) | payer MEDICARE, MEDICAID, SELFPAY | PROVIDERS: PCP Internal Medicine; Visit Provider Internal Medicine | DX: E53.8 Deficiency of other specified B group vitamins (principal) | CPT/HCPCS: 96372; J3420 ==

== ENCOUNTER 2024-06-30 14:17 | Outpatient (REF) | payer MEDICARE, MEDICAID, SELFPAY ==
--- NOTE | ~2024-06-30 | FL_ITS ---
EXAMINATION: Modified Barium Swallow CLINICAL INFORMATION: Dysphagia COMPARISON: None TECHNIQUE: Modified barium swallow was performed under lateral fluoroscopy with patient in standing position. Barium mixed with solids and liquids of different consistencies was administered by the speech pathologist. Examination was recorded in the fluoroscopy suite. FINDINGS: Trace laryngeal penetration was seen with multiple consistencies of barium. No subglottic aspiration was observed. FLUOROSCOPY TIME: 2 minutes 13 seconds Number of Spot Images: N/A DOSE AREA PRODUCT: [id number] uGy-m2 (microgray-meter squared) FL/FL Modified Barium Swallow IMPRESSION: 1. Trace laryngeal penetration with multiple consistencies of barium. No subglottic aspiration was observed. Refer to the speech therapy report for further clarification This procedure was performed by Rui Osorio PA-C, and supervised by Dr. Lerma. Electronically signed by: Indra Lerma MD 07/02/2024 09:56 AM [facility]
--- NOTE | 2024-07-02 15:35 | MHC.SL.IMP ---
Date of Plan of Treatment: 06/30/24 Onset of Symptoms/Illness: 05/05/24 Date Treatment Started: 06/30/24 Admitting Diagnosis: Dysphagia Primary Speech & Language Diagnosis: R13.12 Oropharyngeal Phase Dysphagia Reason for Today's Visit: 01487 Modified Barium Swallow Study Pre-evaluation Dietary Consistencies: Soft & Bite Sized Pre-evaluation Liquid Consistency: Thin Pre-evaluation Medication Administration: UNK Medical History: Modified Barium Swallow Study Fluoroscopic Evaluation of Swallowing Function CPT Code 96266 Evaluation Year: 2024 Reason for Study: Difficulty swallowing Referring Physician: Nora Castillo MD Evaluating Clinician: Kaitlin Miller MA, CCC-SYSTEM VALIDATION ENGINEER Study Number: 1 Patient Name: Jose Rodriguez Status: Outpatient, Wheelchair Age: 79 Gender: Male Medical History Medical History (Updated 01/16/24 @ 11:48 by Nora Castillo MD) History of vitamin D deficiency Moderate to severe aortic stenosis Systolic murmur Diabetes mellitus, with long-term current use of insulin Impaired cognitive ability Anemia Nocturia Urinary urgency Weak urinary stream Incomplete emptying of bladder Vitamin D deficiency Encounter for general adult medical examination with abnormal findings Gait instability Alcohol-induced polyneuropathy Arthralgia Essential hypertension Dyslipidemia History of CVA with residual deficit Surgical History History of ventral hernia repair Hx of cholecystectomy SUBJECTIVE: Patient is a 79 year old male referred for a modified barium swallow study by Nora Castillo MD due to reports of patient coughing when eating. Patient arrived for his appointment today in a wheelchair, accompanied by a staff member from [email or web address] [facility]. Per EMR, pertinent medical history includes impaired cognition, gait instability, hx CVA w/ residual deficit, overactive bladder, alcohol induced polyneuropathy, HTN, and dyslipidemia. Patient sees a speech pathologist at [facility] and is currently on a Soft and Bite Sized diet with Thin Liquids, avoiding mixed consistencies. SYSTEM VALIDATION ENGINEER noticed patient has been coughing more during and after meals, concerning for aspiration and/or presence of pharyngeal residue. Oral Motor Exam Mouth Occlusion: Normal Oral-Facial Teeth Characteristics: Edentulous Tongue Size: Normal Is patient able to manage secretions?: Yes Food and Liquid Trials: Oral Impairment: Lip Closure: Did not test Oral Impairment: Tongue Control During Bolus Hold: 2=Posterior escape of less than half of bolus Oral Impairment: Bolus Preparation/Mastication: 3=Minimal chewing/mashing with majority of bolus unchewed Oral Impairment: Bolus Transport/Lingual Motion: 2=Slowed tongue motion Oral Impairment: Oral Residue: 2=Residue collection on oral structures Oral Impairment:Initiation of Pharyngeal Swallow: 3=Bolus head in pyriforms Pharyngeal Impairment: Soft Palate Elevation: 0=No bolus between soft palate (SP)/pharyngeal wall (PW) Pharyngeal Impairment: Laryngeal Elevation: 1=Partial thyroid cartilage/arytenoids to epiglottic petiole movement Pharyngeal Impairment: Anterior Hyoid Excursion: 1=Partial anterior movement Pharyngeal Impairment: Epiglottic Movement: 1=Partial inversion Pharyngeal Impairment: Laryngeal Vestibular Closure:: 1=Incomplete: narrow column air/contrast in laryngeal vestibule Pharyngeal Impairment: Pharyngeal Stripping Wave: 1=Present: diminished Pharyngeal Impairment: Pharyngeal Contraction: Did not test Pharyngeal Impairment: Pharyngoesophageal Segment Openin=Complete distension and complete duration: no obstruction of flow Pharyngeal Impairment: Tongue Base (TB) Retraction: 1=Trace column of contrast/air between TB and posterior PW Pharyngeal Impairment: Pharyngeal Residue: 1=Trace residue within or on pharyngeal structures Pharyngeal Impairment: Esophageal Clearance Upright Position: Did not test Impressions and Recommendations OBJECTIVE: Time-out: performed at 15:00 Evaluation Start: 14:30; Stop: 14:40 Patient Positioning: Seated 70-90 degrees Viewing Planes: LATERAL ONLY Contrast: MBSImP? Standardized Protocol using commercially prepared, standardized Barium viscosities, including: Varibar? THIN LIQUID (40% w/v, <15 cps) , Varibar? PUDDING (40% w/v, <4700-3063 cps) MBSImP ID: [id number] Results: Lip closure for intraoral bolus containment could not be assessed due to logistical reasons not related to physiologic impairment. Tongue control during bolus hold resulted in posterior escape of less than half of the bolus. Bolus preparation and mastication was only minimal chewing/mashing, with the majority of the bolus unchewed. Bolus transport/lingual motion was with slowed tongue motion. Oral residue was a collection on oral structures. Initiation of the pharyngeal swallow occurred when the bolus head was in the pyriform sinuses. Soft palate elevation resulted in no bolus between the soft palate and the pharyngeal wall. Laryngeal elevation was decreased, with partial superior movement of the thyroid cartilage/partial approximation of the arytenoids to the epiglottic petiole. Anterior hyoid excursion demonstrated partial anterior movement. Epiglottic movement resulted in partial inversion. Laryngeal vestibular closure was incomplete, with a narrow column of air/contrast noted within the laryngeal vestibule at the height of the swallow. Pharyngeal stripping wave was present, but diminished. Pharyngeal contraction could not be determined due to logistical reasons not related to physiologic impairment. Pharyngoesophageal segment opening was completely distended for complete duration with no obstruction of bolus flow. Tongue base retraction allowed a trace column of contrast or air between the retracted tongue base and the posterior pharyngeal wall. Pharyngeal residue was a trace within or on pharyngeal structures. Esophageal clearance in the upright position could not be assessed due to logistical reasons not related to physiologic impairment. Oral Impairment Score: 12 (absence of score, component 1) Pharyngeal Impairment Score: 5 (absence of score, component 13) Esophageal Impairment Score: --- (absence of score, component 17) Laryngeal Penetration and Aspiration: Penetration was observed in today's study. Thin Contrast and Mixed Media (mixture Puree/Thin) entered the airway, remained above the vocal folds, and was ejected from the airway. No evidence of aspiration during this exam. ASSESSMENT: Clinician Assessment: This exam was conducted by the radiologist and the speech pathologist. Patient was seated upright at 90 degrees for lateral view only. He trialed thin (self-administered cup), puree, and ground textures. There was premature posterior escape of <50% of bolus before pharyngeal swallow was initiated. Minimal chewing/mashing of solids. Posterior lingual movement was delayed in initiation with slowed movement. There was a mild coating of residue on the tongue and palate. Pharyngeal swallow trigger was delayed, initiated as the bolus pooled in the pyriforms. No evidence of nasopharyngeal reflux. Incomplete laryngeal elevation with partial epiglottic inversion and partial laryngeal vestibular closure. There was trace penetration above the vocal folds on trials of thin liquid and mixed media (thin pooled in valleculae mixed with subsequent trial of puree). No evidence of aspiration during this exam. Trace residue noted on the tongue base and in the valleculae. Liquid Intake Recommendation: Thin Liquid Intake Strategies: Small Sips, No Straws Dietary Recommendations: Grnd/Mech Altered (NDD2) Medication Administration: Crushed with Puree Please contact the pharmacy regarding appropriate crushable or liquid drug formulations that are available whenever modified delivery is recommended. Compensatory Strategies Recommended: Sitting Upright (90 deg), Double Swallow, No Straw, Small Bites and Sips, Rate of Ingestion Change, Avoid Specific Foods Supervision during eating and or drinking: Total Supervision (1:1) Recommended Treatments: Compens. Strategy Educat. Recommendation for Speech Therapy: Speech Therapy through Rehab Facility Text Comment: Intake Recommendations: Route: PO Diet Grade: Mechanical Soft Liquid Consistencies: Thin Post-Study Functional Oral Intake Scale (FOIS): 5- Total oral intake of multiple consistencies requiring special preparation Minimal mastication on solids. Trace penetration above the vocal folds on trials of thin liquid. No evidence of aspiration during this exam. Therapy Recommendations: Patient presents with moderate oral phase dysphagia, characterized by reduced tongue control, premature posterior spilling, minimal mastication, delayed AP transport and delayed swallow trigger. Note incomplete laryngeal elevation with partial epiglottic inversion. This exam revealed trace penetration on thin liquid and mixed media intermittently. No evidence of aspiration. Overall good clearing of the oral and pharyngeal cavities. Recommend softer diet d/t patient?s edentulous status and oral phase difficulties, GROUND/MECH ALTERED (NDD2) solids and THIN liquids, pills crushed in puree or as tolerated. Recommend patient continue speech therapy for the treatment of dysphagia. Marketing Analytics Analyst Goals: ? The patient will tolerate the least restrictive diet with a safe/efficient swallow to maintain adequate nutrition and hydration. ? The patient and/or family will participate in further education for swallowing goals. Short Term Goals: ? Diet - The patient will tolerate a mechanical soft diet with thin liquids without signs or symptoms of penetration/aspiration 100% of the time. - The patient will participate in therapeutic PO trials with the SYSTEM VALIDATION ENGINEER. ? Guidelines - The patient will comply with/recall the following guidelines/strategies 100% of the time with minimal cuing: Bolus Volume Change, Rate of Ingestion Change, Additional Swallow(s) per Bolus, No Straws. ? Education - The patient, family, caregiver will verbalize/demonstrate understanding of the results of this evaluation, the above recommendations, and the swallowing guidelines. Frequency/Duration: Date Range for Service Requested: Timeline to reassess: PRN Clinician - Supplemental, Miscellaneous Communication: It is important to note MBSS objective studies are snapshots in time and Patient function might vary with factors such as time of day or concomitant medical conditions. For this reason, the final treatment plan for this patient should rest with their medical care team. Additional recommendations should be considered with the totality of the Patient in mind. Thank for the opportunity to participate in the care of this patient. If you have any questions about the content of this report, please contact the Speech [facility] at [facility]. Education: Education regarding findings from today's study and plans for therapy were provided to Family/caregiver only through Verbal Instruction, Written Instruction. Bead Forming Machine Operator Clinician/Clinical Fellow: No Supervisory Statement: N/A Speech Language Pathologist: Kaitlin Miller M.A., CCC-SYSTEM VALIDATION ENGINEER
== END 2024-06-30 14:18 | disposition home or self-care (01) ==
LOC: HO.XRAY 14:17
PROVIDERS: Visit Provider Internal Medicine
DX: R13.10 Dysphagia, unspecified (principal)
CPT/HCPCS: 74230; 92611

== ENCOUNTER → 2024-06-30 14:30 | Outpatient (BNV) | payer MEDICARE, MEDICAID, SELFPAY | PROVIDERS: Visit Provider Physician Assistant Surgical | DX: R13.10 Dysphagia, unspecified (principal) | CPT/HCPCS: 74230 ==

== ENCOUNTER 2024-07-08 15:50 | Outpatient (AMB) | payer MEDICARE, MEDICAID, SELFPAY ==
--- NOTE | 2024-07-08 16:15 | AM.OFFVISNUR ---
Intake Visit Reasons: B12 Allergies No Known Allergies [No Known Allergies*] Allergy (Verified 03/23/24 14:23) Nursing Note Pt came in, administered Vitamin B12 injection to right deltoid. Pt tolerated well. Office Meds cyanocobalamin (vitamin B-12) 1,000 mcg/mL injection solution Performing Provider: Nora Castillo MD Performing Location: [facility] [place] Administered by: Fransisca Figueroa on 07/08/24 16:16 Dose Route Admin Location Dispensed Lot Number Expiration Date [facility] Fire Extinguisher Charger 1,000 mcg IM right deltoid 1 mL [id number] 04/11/25 16841-410-71 SOMERSET THERAP Assessment & Plan Assessment & Plan Orders: Orders AMB Vitamin B12 Injection Patient Supplied Today E53.8 - Deficiency of other specified B group vitamins Medications: New cyanocobalamin (vitamin B-12) 1,000 mcg IM ONCE 1 mL 0RF E53.8 - Deficiency of other specified B group vitamins
== END 2024-07-08 16:05 | disposition home or self-care (01) ==
PROVIDERS: PCP Internal Medicine; Visit Provider Internal Medicine
DX: E53.8 Deficiency of other specified B group vitamins (principal)

== ENCOUNTER → 2024-07-08 15:50 | Outpatient (BNVA) | payer MEDICARE, MEDICAID, SELFPAY | PROVIDERS: PCP Internal Medicine; Visit Provider Internal Medicine | DX: E53.8 Deficiency of other specified B group vitamins (principal) | CPT/HCPCS: 96372; J3420 ==

== ENCOUNTER 2024-08-04 15:44 | Outpatient (AMB) | payer MEDICARE, MEDICAID, SELFPAY ==
--- NOTE | 2024-08-04 15:49 | AM.OFFVISNUR ---
Intake Visit Reasons: B12 Allergies No Known Allergies [No Known Allergies*] Allergy (Verified 03/23/24 14:23) Nursing Note Administered to left deltoid medication Vitamin B12. Pt tolerated well. Office Meds cyanocobalamin (vitamin B-12) 1,000 mcg/mL injection solution Performing Provider: Nora Castillo MD Performing Location: [facility] [place] Administered by: Fransisca Figueroa on 08/04/24 15:50 Dose Route Admin Location Dispensed Lot Number Expiration Date [facility] Gliding Pilot Instructor 1,000 mcg IM left deltoid 1 mL [id number] 11/09/26 11226-415-22 GIANNI GONZALES Assessment & Plan Assessment & Plan Orders: Orders AMB Vitamin B12 Injection Patient Supplied Today E53.8 - Deficiency of other specified B group vitamins Medications: New cyanocobalamin (vitamin B-12) 1,000 mcg IM ONCE 1 mL 0RF E53.8 - Deficiency of other specified B group vitamins Coding
== END 2024-08-04 15:50 | disposition home or self-care (01) ==
LOC: HO.HMCC 15:44
PROVIDERS: PCP Internal Medicine; Visit Provider Internal Medicine
DX: E53.8 Deficiency of other specified B group vitamins (principal)

== ENCOUNTER → 2024-08-04 15:44 | Outpatient (BNVA) | payer MEDICARE, MEDICAID, SELFPAY | PROVIDERS: PCP Internal Medicine; Visit Provider Internal Medicine | DX: E53.8 Deficiency of other specified B group vitamins (principal) | CPT/HCPCS: 96372; J3420 ==

== ENCOUNTER 2024-09-01 00:01 | Emergency (ER) | payer MEDICARE, MEDICAID, SELFPAY ==
--- NOTE | 2024-09-01 | ECG_ITS ---
Test Reason : ARM PAIN Blood Pressure : */* mmHG Vent. Rate : 82 BPM Atrial Rate : 82 BPM P-R Int : 150 ms QRS Dur : 82 ms QT Int : 398 ms P-R-T Axes : 32 29 70 degrees QTcB Int : 464 ms Normal sinus rhythm Normal ECG No previous ECGs available Referred By: Generic ED Physician Electronically Signed By: MARTÍN MUNOZ
--- NOTE | ~2024-09-01 | XR_ITS ---
CLINICAL HISTORY: shoulder pain 2 view right shoulder Comparison: None Findings: Osteopenia. Suspected old fractures at the humeral neck and distal clavicle. No acute fracture or dislocation. [id number] degenerative changes. No erosions. No radiopaque foreign body. IMPRESSION: No acute fracture or dislocation. This document has been electronically signed by: Rachana Orantse MD on 09/01/2024 01:09:43
[2024-09-01 00:17] VITALS: BP 123/64; BP 150/62; PULSE 82; PULSE 87; RESP 22; TEMP 36.6; O2SAT 97; O2SAT 98; BMI 29.3
--- NOTE | 2024-09-01 00:47 | MHC.EDTECH ---
Patient biba ,ekg taken and was read by Provider ,vitals taken ,Patient was hooked up to rotary screen printing machine operator ,blood drawn and sent to lab ,Patient was change into hospital attire ,All safety measure in Place .Plan of care continue .
[2024-09-01 00:52] LABS: Basophils Percent Auto 0.6 % (0-2); PLT CLUMP 1; SCAN SMEAR FLAG 1
[2024-09-01 00:54] LABS: Eosinophils Absolute Auto 0.2 X10*3/uL (0.0-0.4); Eosinophils Percent Auto 3.2 % (0-4); Hematocrit 35.4 % (42.0-52.0); Hemoglobin 11.8 g/dl (14.0-18.0); Imm Gran Abs Auto 0.02 X10*3/uL (0.00-0.03); Imm Gran Pct Auto 0.4 % (0.0-0.4); Lymphocytes Absolute Auto 2.1 X10*3/uL (1.2-4.9); Lymphocytes Percent Auto 39.5 % (20-40); MANUAL DIFF FLAG SCAN; Mean Corpuscular HGB Conc 33.3 g/dl (31.0-36.0); Mean Corpuscular Hemoglobin 29.9 pg (27.0-33.0); Mean Corpuscular Volume 89.8 fL (80.0-98.0); Mean Platelet Volume 12.2 fL (9.4-12.4); Monocytes Absolute Auto 0.5 X10*3/uL (0.1-1.2); Monocytes Percent Auto 9.5 % (2-11); Neutrophils Absolute Auto 2.5 x10*3/uL (2.0-8.3); Neutrophils Percent Auto 46.8 % (45-73); Red Blood Count 3.94 X10*6/uL (4.60-5.80); Red Cell Distribution Width 13.2 % (11.0-16.0)
[2024-09-01 01:06] LABS: Platelet Count 123 X10*3/uL (160-400); White Blood Count 5.3 X10*3/uL (4.8-10.8)
[2024-09-01 01:07] LABS: SLIDE REVIEW VERIFIED
--- NOTE | 2024-09-01 01:09 | PC.NURSE ---
pt meter changes records clerk to hospital attire, place on bedside monitor, labs collected and sent. manager group home at bedside.
[2024-09-01 01:12] LABS: Alanine Aminotransferase 12 U/L (0-40); Albumin Level 3.6 g/dL (3.5-5.0); Anion Gap 14 (12-20); Aspartate Amino Transferase 22 U/L (5-37); Bilirubin Total 0.4 mg/dL (0.0-1.0); Blood Urea Nitrogen 16 mg/dL (9-16); Calcium 9.3 mg/dL (8.4-10.2); Carbon Dioxide 23 mmol/L (22-29); Chloride 109 mmol/L (96-108); Creatinine Clr Calc Pharmacy 60.3; Estimated Glomerular Filt Rate > 60; Glucose Random 81 mg/dL (60-115); Potassium 4.2 mmol/L (3.3-5.1); Sodium 142 mmol/L (135-145); Total Protein 6.9 g/dL (6.5-8.0)
[2024-09-01 01:18] LABS: Troponin-I High Sensitivity 10.1 ng/L (<3.5-35.0)
[2024-09-01 01:35] VITALS: BP 116/62; PULSE 78; RESP 22; TEMP 36.7; O2SAT 97
[2024-09-01 01:45] LABS: Alkaline Phosphatase 48 U/L (39-117)
--- NOTE | 2024-09-01 02:25 | PC.NURSE ---
pt waiting to be seen
--- NOTE | 2024-09-01 03:24 | PC.NURSE ---
pt awaiting to be seen by provider.
--- NOTE | 2024-09-01 04:36 | ED_ITS ---
HPI - General Adult General Chief complaint: General Medical Stated complaint: Bilat arm pain R-chronic L-new onset, CP? -Group H Time Seen by Provider: 09/01/24 04:26 Source: patient and other ( long-term staff) Mode of arrival: EMS Limitations: other History of Present Illness ED Provider: Dr. Antonella Iqbal Related Data Previous Rx's ?Medication ?Instructions ?Recorded acetaminophen 650 mg 650 mg PO Q8H PRN fever or pain 01/16/24 tablet,extended release #30 tabs insulin degludec 200 unit/mL (3 42 unit (0.21 mL) subcut QAM #18 mL 01/16/24 mL) subcutaneous pen (Tresiba FlexTouch U-200 insulin) magnesium hydroxide 400 mg/5 mL 1,200 mg (15 mL) PO DAILY PRN 01/16/24 oral suspension (Crawley Milk of constipation #355 mL Magnesia) meloxicam 7.5 mg tablet 7.5 mg PO DAILY PRN for joint pain 01/16/24 #30 tabs pen needle, diabetic 31 gauge x #100 ea 01/16/24 1/ sennosides 8.6 mg tablet (senna) 17.2 mg (2 x 8.6 mg) PO BEDTIME 01/16/24 PRN constipation #56 tabs finasteride 5 mg tablet 5 mg PO DAILY 90 days #90 tabs 04/14/24 mirabegron 50 mg tablet,extended 50 mg PO DAILY 90 days #90 tabs 04/14/24 release 24 hr terazosin 10 mg capsule 10 mg PO DAILY 90 days #90 caps 04/14/24 adult x-large pull-ups #120 ea 05/18/24 gabapentin 600 mg tablet 600 mg PO BID #180 tabs 07/01/24 lisinopril 5 mg tablet 5 mg PO .COMPLEX #90 tabs 07/01/24 metformin 1,000 mg tablet 1,000 mg PO BID #180 tabs 07/01/24 docusate sodium 100 mg capsule 200 mg (2 x 100 mg) PO QAM #180 07/08/24 caps blood sugar diagnostic (Contour #100 ea 07/23/24 Next Test Strips) cholecalciferol (vitamin D3) 50 50 mcg PO .COMPLEX #90 caps 07/23/24 mcg (2,000 unit) capsule atorvastatin 10 mg tablet 10 mg PO BEDTIME #90 tabs 08/05/24 aspirin 81 mg tablet,delayed 81 mg PO QAM #90 tabs 08/12/24 release blood sugar diagnostic (True #100 ea 08/16/24 Metrix Pro Test Strip) blood-glucose meter #1 ea 08/16/24 lancets 28 gauge (Safety Lancets) #200 ea 08/16/24 Allergies Allergy/AdvReac Type Severity Reaction Status Date / Time No Known Allergies Allergy Verified 09/01/24 00:20 [No Known Allergies*] [facility] Past Medical History Medical History (Updated 09/01/24 @ 04:36 by Antonella Iqbal MD) History of vitamin D deficiency Moderate to severe aortic stenosis Systolic murmur Diabetes mellitus, with long-term current use of insulin Impaired cognitive ability Anemia Nocturia Urinary urgency Weak urinary stream Incomplete emptying of bladder Vitamin D deficiency Encounter for general adult medical examination with abnormal findings Gait instability Alcohol-induced polyneuropathy Arthralgia Essential hypertension Dyslipidemia History of CVA with residual deficit Surgical History History of ventral hernia repair Hx of cholecystectomy Family History Family History Father Unknown family medical history Mother Unknown family medical history Social History Social History Housing: Assisted Living Facility Alcohol intake: never Patient Tobacco Use Status: Never used Tobacco Smoked in Last 30 Days: No e-Cigarette/Vaping Use: Never Used Second Hand Smoke Exposure: No Use of substances other than those prescribed or required for medical reasons: No Advance Directives: No Do you have a plan to hurt others: No Plan Current occupational status: disabled Cognitive needs: No Hearing needs: Yes Vision needs: Yes Physical Exam ED Vital Signs: Vital Signs - 24 hr 09/01/24 00:17 09/01/24 01:35 Temperature 97.8 F 98.1 F Pulse Rate 82 78 Respiratory Rate 22 H 22 H Blood Pressure 123/64 116/62 Pulse Oximetry 97 97 Oxygen Delivery Method Room Air Room Air BMI result Body Mass Index 29.3 Medical Decision Making Lab Data 09/01/24 00:45 09/01/24 00:45 Labs: Lab Results 09/01/24 Range/Units 00:45 WBC 5.3 (4.8-10.8) X10*3/uL RBC 3.94 L (4.60-5.80) X10*6/uL Hgb 11.8 L (14.0-18.0) g/dl Hct 35.4 L (42.0-52.0) % MCV 89.8 (80.0-98.0) fL MCH 29.9 (27.0-33.0) pg MCHC 33.3 (31.0-36.0) g/dl RDW 13.2 (11.0-16.0) % Plt Count 123 L (160-400) X10*3/uL MPV 12.2 (9.4-12.4) fL Immature Gran % (Auto) 0.4 (0.0-0.4) % Neut % (Auto) 46.8 (45-73) % Lymph % (Auto) 39.5 (20-40) % Tyler % (Auto) 9.5 (2-11) % Eos % (Auto) 3.2 (0-4) % Baso % (Auto) 0.6 (0-2) % Lymph # (Auto) 2.1 (1.2-4.9) X10*3/uL Tyler # (Auto) 0.5 (0.1-1.2) X10*3/uL Eos # (Auto) 0.2 (0.0-0.4) X10*3/uL Baso # (Auto) 0.0 (0.0-0.2) X10*3/uL Abs Immat Gran (auto) 0.02 (0.00-0.03) X10*3/uL Absolute Neuts (auto) 2.5 (2.0-8.3) x10*3/uL Absolute Nucleated RBC 0.000 (0.0-0.012) X10*3/uL Nucleated RBC % (auto) 0.0 (0.0-0.2) /100WBC Smear Tech's Comments VERIFIED Sodium 142 (135-145) mmol/L Potassium 4.2 (3.3-5.1) mmol/L Chloride 109 H (96-108) mmol/L Carbon Dioxide 23 (22-29) mmol/L Anion Gap 14 (12-20) BUN 16 (9-16) mg/dL Creatinine 1.10 (0.5-1.4) mg/dL Estim Creat Clear Calc 60.3 Estimated GFR > 60 Random Glucose 81 (60-115) mg/dL Calcium 9.3 (8.4-10.2) mg/dL Total Bilirubin 0.4 (0.0-1.0) mg/dL AST 22 (5-37) U/L ALT 12 (0-40) U/L Alkaline Phosphatase 48 (39-117) U/L Troponin I High Sens 10.1 (<3.5-35.0) ng/L Total Protein 6.9 (6.5-8.0) g/dL Albumin 3.6 (3.5-5.0) g/dL Discharge Plan Discharge Clinical Impression: Pain in right shoulder Patient Disposition: Home, Self-Care Instructions: Arm Pain (ED) Additional Instructions: Please follow-up with your primary care physician tomorrow. If you have any worsening or new symptoms, please return to the emergency room or call 911 Prescriptions: No Action (DME) adult x-large pull-ups See Rx Instructions .Route .MEDSUPPLY Qty: 120 11RF Rx Instructions: As directed gabapentin 600 mg tablet 600 mg PO BID Qty: 180 5RF metformin 1,000 mg tablet 1,000 mg PO BID Qty: 180 5RF lisinopril 5 mg tablet 5 mg PO .COMPLEX Qty: 90 5RF Rx Instructions: 5 mg orally IN AM; docusate sodium 100 mg capsule 200 mg PO QAM Qty: 180 5RF (DME) Contour Next Test Strips Strip See Rx Instructions .ROUTE .MEDSUPPLY Qty: 100 7RF Rx Instructions: use one strip twice a day to check blood sugar before meals cholecalciferol (vitamin D3) 50 mcg (2,000 unit) capsule 50 mcg PO .COMPLEX Qty: 90 5RF Rx Instructions: 50 mcg orally in AM; atorvastatin 10 mg tablet 10 mg PO BEDTIME Qty: 90 5RF aspirin 81 mg tablet,delayed release (DR/EC) 81 mg PO QAM Qty: 90 5RF (DME) lancets [Safety Lancets] 28 gauge misc See Rx Instructions .Route Qty: 200 1RF Rx Instructions: To test blood sugars twice a day (DME) blood-glucose meter Kit See Rx Instructions .Route Qty: 1 0RF Rx Instructions: True Metrix - check blood sugar twice per day as directed (DME) True Metrix Pro Test Strip Strip See Rx Instructions .Route Qty: 100 7RF Rx Instructions: Check blood glucose twice daily as directed acetaminophen 650 mg tablet extended release 650 mg PO Q8H PRN (Reason: fever or pain) Qty: 30 0RF Tresiba FlexTouch U-200 200 unit/mL (3 mL) insulin pen 42 unit subcut QAM Qty: 18 3RF magnesium hydroxide [Crawley Milk of Magnesia] 400 mg/5 mL suspension 1,200 mg PO DAILY PRN (Reason: constipation) Qty: 355 0RF meloxicam 7.5 mg tablet 7.5 mg PO DAILY PRN (Reason: for joint pain) Qty: 30 2RF (DME) pen needle, diabetic 31 gauge x 1/4 needle See Rx Instructions .ROUTE .MEDSUPPLY Qty: 100 1RF Rx Instructions: As directed to inject insulin once a day sennosides [senna] 8.6 mg tablet 17.2 mg PO BEDTIME PRN (Reason: constipation) Qty: 56 0RF mirabegron 50 mg tablet extended release 24 hr 50 mg PO DAILY 90 Days Qty: 90 3RF finasteride 5 mg tablet 5 mg PO DAILY 90 Days Qty: 90 3RF terazosin 10 mg capsule 10 mg PO DAILY 90 Days Qty: 90 3RF Print Language: Estonian
[2024-09-01 04:51] VITALS: BP 156/68; PULSE 75; RESP 18; TEMP 36.8; O2SAT 100
[2024-09-01] MEDS: Acetaminophen 325 MG TABLET 650 MG PO (05:02)
--- NOTE | 2024-09-01 05:04 | PC.NURSE ---
medicated per mar, waiting ambulance
--- NOTE | 2024-09-01 05:57 | PC.NURSE ---
blood pressure of 187/[address] Rasheed wilder for the pt to return to [facility].
[2024-09-01 05:58] VITALS: BP 156/68; PULSE 75; RESP 18; TEMP 36.8; O2SAT 100
== END 2024-09-01 05:59 | disposition home or self-care (01) ==
PROVIDERS: Emergency Provider Emergency Medicine
DX: M25.511 Pain in right shoulder (principal); M79.601 Pain in right arm; M79.602 Pain in left arm; R07.89 Other chest pain; E11.9 Type 2 diabetes mellitus without complications; Z79.4 Long term (current) use of insulin; Z79.899 Other long term (current) drug therapy
CPT/HCPCS: 36415; 73030; 80053; 84484; 85025; 93005; 99283; 99285

== ENCOUNTER → 2024-09-01 00:16 | Outpatient (BNV) | payer MEDICARE, MEDICAID, SELFPAY | PROVIDERS: Emergency Provider Emergency Medicine; Visit Provider Internal Medicine | DX: M79.601 Pain in right arm (principal); M79.602 Pain in left arm | CPT/HCPCS: 93010 ==

== ENCOUNTER → 2024-09-01 00:26 | Outpatient (BNV) | payer MEDICARE, MEDICAID, SELFPAY | PROVIDERS: Visit Provider Radiology Diagnostic Radiology | DX: M25.511 Pain in right shoulder (principal) | CPT/HCPCS: 73030 ==

== ENCOUNTER 2024-09-03 15:57 | Outpatient (AMB) | payer MEDICARE, MEDICAID, SELFPAY ==
--- NOTE | 2024-09-03 16:25 | AM.OFFVISNUR ---
Intake Visit Reasons: B-12 Intake Note: Pt arrived for monthly B-12 injection Ham Curer Required: No Allergies No Known Allergies [No Known Allergies*] Allergy (Verified 09/03/24 16:25) Medication List - Last Reconciled 09/03/24 by Ania Staples RN acetaminophen ER 650 mg PO Q8H PRN [adult x-large pull-ups As directed NS] aspirin 81 mg PO QAM atorvastatin 10 mg PO BEDTIME blood sugar diagnostic (Contour Next Test Strips) use one strip twice a day to check blood sugar before meals blood sugar diagnostic (True Metrix Pro Test Strip) Check blood glucose twice daily as directed blood-glucose meter True Metrix - check blood sugar twice per day as directed cholecalciferol (vitamin D3) 50 mcg orally in AM; docusate sodium 200 mg (2 x 100 mg) PO QAM finasteride 5 mg PO DAILY 90 days gabapentin 600 mg PO BID insulin degludec (Tresiba FlexTouch U-200 insulin) 42 units (0.21 mL) subcut QAM lancets (Safety Lancets) To test blood sugars twice a day lisinopril 5 mg orally IN AM; magnesium hydroxide (Crawley Milk of Magnesia) 1,200 mg (15 mL) PO DAILY PRN meloxicam 7.5 mg PO DAILY PRN metformin 1,000 mg PO BID mirabegron ER 50 mg PO DAILY 90 days pen needle, diabetic As directed to inject insulin once a day sennosides (senna) 17.2 mg (2 x 8.6 mg) PO BEDTIME PRN terazosin 10 mg PO DAILY 90 days Office Meds cyanocobalamin (vitamin B-12) 1,000 mcg/mL injection solution Performing Provider: Nora Castillo MD Performing Location: [facility] [place] [facility] Administered by: Ania Staples RN on 09/03/24 16:26 Dose Route Admin Location Dispensed Lot Number Expiration Date [facility] Elevator Technician 1,000 mcg IM left deltoid 1 mL [id number] 10/21/26 96421-174-52 GIANNI GONZALES Comments: Pt supplied Assessment & Plan Assessment & Plan Orders: Orders AMB Vitamin B12 Injection Patient Supplied Today E53.8 - Deficiency of other specified B group vitamins Medications: New cyanocobalamin (vitamin B-12) 1,000 mcg IM ONCE 1 mL 0RF E53.8 - Deficiency of other specified B group vitamins Coding
== END 2024-09-03 16:48 | disposition home or self-care (01) ==
LOC: HO.HMCC 15:57
PROVIDERS: Visit Provider Internal Medicine
DX: E53.8 Deficiency of other specified B group vitamins (principal)

== ENCOUNTER → 2024-09-03 15:57 | Outpatient (BNVA) | payer MEDICARE, MEDICAID, SELFPAY | PROVIDERS: Visit Provider Internal Medicine | DX: E53.8 Deficiency of other specified B group vitamins (principal) | CPT/HCPCS: 96372; J3420 ==

== ENCOUNTER 2024-09-04 10:40 | Outpatient (AMB) | payer MEDICARE, MEDICAID, SELFPAY ==
--- NOTE | 2024-09-04 12:09 | MHC.OFFWIV ---
Intake Vital Signs 09/04/24 12:10 Height 5 ft 9 in Weight 198 lb BMI 29.2 BP 138/76 Blood Pressure Location Lt brachial Position Sitting Pulse 80 Pulse Source Pulse Oximeter Temp 98.0 F Temp Source Oral Pulse Oximetry (%) 97 Intake Visit Reasons: EP-lt shoulder pain Intake Note: pt is here for left shoulder pain Patient Tobacco Use Status: Never used Tobacco Allergies No Known Allergies [No Known Allergies*] Allergy (Verified 09/04/24 12:10) Do you need a note to return to daycare/school/sports/work: Yes HPI EP-lt shoulder pain HPI Details Patient is a 79-year-old male with dementia who comes in with his family member, complaining of about a week of right shoulder pain. Apparently he has chronic left shoulder issues, but it became apparent that he was in discomfort to the right side now also, while he was doing physical therapy for a different condition. PT was trying to have him catch him throw a large yoga ball, and he was unable to lift the right arm due to the pain. It is starting to affect his ADLs, and his family is having to do more to take care of him. They deny any known acute fall or other trauma. 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 Currently only taking Tylenol for the pain. No fever chills, malaise or myalgias, nausea vomiting diarrhea, tingling or weakness reported. [facility] Medical History History of vitamin D deficiency Moderate to severe aortic stenosis Systolic murmur Diabetes mellitus, with long-term current use of insulin Impaired cognitive ability Anemia Nocturia Urinary urgency Weak urinary stream Incomplete emptying of bladder Vitamin D deficiency Encounter for general adult medical examination with abnormal findings Gait instability Alcohol-induced polyneuropathy Arthralgia Essential hypertension Dyslipidemia History of CVA with residual deficit Surgical History History of ventral hernia repair Hx of cholecystectomy Family History Father Unknown family medical history Mother Unknown family medical history Social History Housing: Assisted Living Facility Alcohol intake: never Patient Tobacco Use Status: Never used Tobacco e-Cigarette/Vaping Use: Never Used Second Hand Smoke Exposure: No Current occupational status: disabled Cognitive needs: No Hearing needs: Yes Vision needs: Yes Review of Systems Const All systems reviewed & are unremarkable except as noted in HPI and below Physical Exam Vital Signs: Last Vital Signs Temp 98.0 F 09/04/24 12:10 Pulse 80 09/04/24 12:10 BP 138/76 09/04/24 12:10 Pulse Ox 97 09/04/24 12:10 BMI result Body Mass Index 29.2 Extrem Other: Right shoulder exam: There is no gross deformity, edema, erythema or warmth to the area, and no visible trauma, fluctuance or induration; tenderness at the lateral joint line; decreased range of motion, and he cries out however with any manipulation of his right arm, and only lifts it himself to about 30-40 degrees in abduction and flexion; neurovascularly intact distally, with no cyanosis; question positive empty can test Results Reviewed Results Reviewed: Advanced degenerative findings on plain film x-ray, but no acute osseous trauma noted on my wet read. Pending radiologist review to confirm Assessment & Plan Assessment & Plan (1) Shoulder pain, right: Code(s): M25.511 - Pain in right shoulder Qualifiers: Chronicity: acute Qualified Code(s): M25.511 - Pain in right shoulder Plan: Patient is a 79-year-old male with dementia who comes in with his family member, complaining of about a week of right shoulder pain. Apparently he has chronic left shoulder issues, but it became apparent that he was in discomfort to the right side now also, while he was doing physical therapy for a different condition. PT was trying to have him catch him throw a large yoga ball, and he was unable to lift the right arm due to the pain. It is starting to affect his ADLs, and his family is having to do more to take care of him. He does have grossly apparent decreased range of motion, likely due to the pain, however due to his advanced dementia this is difficult to ascertain for sure. He cries out however with any manipulation of his right arm, and only lifts it himself to about 30-40 degrees in abduction and flexion. There is no gross deformity, edema, erythema or warmth to the area, and no visible trauma, fluctuance or induration to suggest a septic or grossly injured joint. He is neurovascularly intact distally, with no cyanosis. Plain film x-ray shows advanced degenerative findings, but no acute osseous trauma noted, pending radiologist confirmation. He has a positive empty can test, along with tenderness at the lateral joint line, so there might be a supraspinatus strain involvement also, although I suspect this is more of an arthritis flare, or perhaps even developing adhesive capsulitis due to decreased use of the extremity. He does have meloxicam oral and topical diclofenac on his medication list, which has not been refilled per family. I advised that he take a short course of meloxicam, and when he is having some relief of symptoms, to private branch exchange operator to the diclofenac due to concerns of GI effects, bleeding and cardiac issues with meloxicam. Family was amenable to this. If he still does not gain much more movement of the arm with relief of his pain, I did put an order through for an orthopedic referral, which he can follow up with if needed. It might be that he will need physical therapy for this as well, or he might be a candidate for cortisone injection at that point. Family knows to bring patient to the emergency department with any worrisome symptoms. Orders: Referrals Orthopedics Referral M25.519 - Pain in unspecified shoulder Medications: New diclofenac sodium 1% apply to single elbow, wrist or hand; for hand includes palm/fingers/back of hand 2 grams topical QID 100 grams 0RF Refilled meloxicam 7.5 mg PO DAILY PRN 30 tabs 2RF for joint pain Coding Level of Care Code Est Pt Level 4 (20125) Diagnoses Acute pain of right shoulder M25.511 Chronicity: acute
[2024-09-04 12:10] VITALS: BP 138/76; PULSE 80; TEMP 36.7; O2SAT 97; BMI 29.2
== END 2024-09-04 14:10 | disposition home or self-care (01) ==
PROVIDERS: Visit Provider Physician Assistant Medical
DX: M25.511 Pain in right shoulder (principal)

== ENCOUNTER 2024-09-04 10:40 | Outpatient (REF) | payer MEDICARE, MEDICAID, SELFPAY ==
--- NOTE | ~2024-09-04 | XR_ITS ---
CLINICAL HISTORY: M25.519 - Pain in unspecified shoulder Single view of the right shoulder. COMPARISON: XR right shoulder dated 09/01/24 at 00:38 EDT FINDINGS: Right humeral head is internally rotated. Proximal right humerus, distal clavicle and visualized portions of the scapula appear intact. Decreased subacromial joint space. Marked hypertrophy of the acromioclavicular joint. Likely old healed fracture deformity of the distal right clavicle. Prominent osteophytes versus old healed fracture deformity along the right humeral neck. Visualized portions of the right lung are clear. IMPRESSION: 1. Limited internally rotated image of the right shoulder. Within limits of study, no evidence of acute injury to the right shoulder. 2. Posttraumatic and advanced degenerative changes involving the right shoulder. 3. Decreased subacromial joint space can be associated with chronic rotator cuff injury. This document has been electronically signed by: Jules Mohan MD on 09/04/2024 14:26:20
== END 2024-09-04 10:41 | disposition home or self-care (01) ==
LOC: HO.HMGCX 10:40
PROVIDERS: Visit Provider Physician Assistant Medical
DX: M25.511 Pain in right shoulder (principal)
CPT/HCPCS: 73020

== ENCOUNTER → 2024-09-04 13:18 | Outpatient (BNV) | payer MEDICARE, MEDICAID, SELFPAY | PROVIDERS: Visit Provider Radiology Diagnostic Radiology | DX: M25.511 Pain in right shoulder (principal); M19.011 Primary osteoarthritis, right shoulder | CPT/HCPCS: 73020 ==

== ENCOUNTER 2024-10-04 15:40 | Outpatient (AMB) | payer MEDICARE, MEDICAID, SELFPAY ==
--- NOTE | 2024-10-04 15:51 | AM.OFFVISNUR ---
Intake Visit Reasons: b12 Allergies No Known Allergies [No Known Allergies*] Allergy (Verified 09/04/24 12:10) Nursing Note Pt came with custodial staff. Vitamin B12 injection administered to right deltoid. Pt tolerated well. Office Meds cyanocobalamin (vitamin B-12) 1,000 mcg/mL injection solution Performing Provider: Nora Castillo MD [place] [facility] [place] [facility] Administered by: Fransisca Figueroa on 10/04/24 15:52 Dose Route Admin Location Dispensed Lot Number Expiration Date [facility] Detail Supervisor 1,000 mcg IM right deltoid 1 mL [id number] 11/09/26 08468-652-58 GIANNI GONZALES Assessment & Plan Assessment & Plan Orders: Orders AMB Vitamin B12 Injection Patient Supplied Today E53.8 - Deficiency of other specified B group vitamins Medications: New cyanocobalamin (vitamin B-12) 1,000 mcg IM ONCE 1 mL 0RF E53.8 - Deficiency of other specified B group vitamins Coding
== END 2024-10-04 16:57 | disposition home or self-care (01) ==
LOC: HO.HMCC 15:40
PROVIDERS: PCP Internal Medicine; Visit Provider Internal Medicine
DX: E53.8 Deficiency of other specified B group vitamins (principal)

== ENCOUNTER → 2024-10-04 15:40 | Outpatient (BNVA) | payer MEDICARE, MEDICAID, SELFPAY | PROVIDERS: PCP Internal Medicine; Visit Provider Internal Medicine | DX: E53.8 Deficiency of other specified B group vitamins (principal) | CPT/HCPCS: 96372; J3420 ==

== ENCOUNTER 2024-10-20 08:25 | Outpatient (AMB) | payer MEDICARE, MEDICAID, SELFPAY ==
--- NOTE | 2024-10-20 08:34 | A.OFFPC_ITS ---
Vital Signs 10/20/24 08:47 Height 5 ft 9 in Weight 199 lb BMI 29.4 BP 102/62 Blood Pressure Location Rt brachial Position Sitting Respiration 16 Pulse 72 Pulse Source Pulse Oximeter Temp 97.6 F Temp Source Oral Pulse Oximetry (%) 98 Oxygen Delivery Method Room Air Intake Visit Reasons: PE Intake Note: Pt is here today for his PE Allergies No Known Allergies [No Known Allergies*] Allergy (Verified 10/20/24 09:08) Medication List - Last Reconciled 10/20/24 by Nora Castillo MD acetaminophen ER 650 mg PO Q8H PRN [adult x-large pull-ups As directed NS] aspirin 81 mg PO QAM atorvastatin 10 mg PO BEDTIME blood sugar diagnostic (Contour Next Test Strips) use one strip twice a day to check blood sugar before meals blood sugar diagnostic (True Metrix Pro Test Strip) Check blood glucose twice daily as directed blood-glucose meter True Metrix - check blood sugar twice per day as directed blood-glucose meter (True Metrix Glucose Meter) As directed cholecalciferol (vitamin D3) 50 mcg orally in AM; diclofenac sodium 1% 2 grams topical QID docusate sodium 200 mg (2 x 100 mg) PO QAM finasteride 5 mg PO DAILY 90 days gabapentin 600 mg PO BID insulin degludec (Tresiba FlexTouch U-200 insulin) 42 units (0.21 mL) subcut QAM lancets (Safety Lancets) To test blood sugars twice a day lisinopril 5 mg orally IN AM; magnesium hydroxide ([place] Milk of Magnesia) 1,200 mg (15 mL) PO DAILY PRN meloxicam 7.5 mg PO DAILY PRN metformin 1,000 mg PO BID mirabegron ER 50 mg PO DAILY 90 days 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, 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 As directed to inject insulin once a day sennosides (senna) 17.2 mg (2 x 8.6 mg) PO BEDTIME PRN terazosin 10 mg PO DAILY 90 days Tobacco use date assessed: 10/20/24 Fall risk assessment: No Falls in past year Last assessed Fall Risk: 10/20/24 Dental Screening Dental Screen Date: 10/20/24 Did you have a dental visit in the last 12 months?: No Did you have a dental problem in the last 6 months where you did not have access to dental care?: No Was dental information given to patient?: No [facility] Medical History History of vitamin D deficiency Moderate to severe aortic stenosis Systolic murmur Diabetes mellitus, with long-term current use of insulin Impaired cognitive ability Anemia Nocturia Urinary urgency Weak urinary stream Incomplete emptying of bladder Vitamin D deficiency Encounter for general adult medical examination with abnormal findings Gait instability Alcohol-induced polyneuropathy Arthralgia Essential hypertension Dyslipidemia History of CVA with residual deficit Surgical History History of ventral hernia repair Hx of cholecystectomy Family History Father Unknown family medical history Mother Unknown family medical history Social History Housing: Assisted Living Facility Alcohol intake: never Patient Tobacco Use Status: Never used Tobacco e-Cigarette/Vaping Use: Never Used Second Hand Smoke Exposure: No Current occupational status: disabled Cognitive needs: No Hearing needs: Yes Vision needs: Yes Questionnaire PHQ-9 Over the last 2 weeks, how often have you been bothered by any of the following problems? 1. Little interest or pleasure in doing things: not at all 2. Feeling down, depressed, or hopeless: not at all 3. Trouble falling or staying asleep, or sleeping too much: not at all 4. Feeling tired or having little energy: not at all 5. Poor appetite or overeating: not at all 6. Feeling bad about yourself - or that you are a failure or have let yourself or your family down: not at all 7. Trouble concentrating on things, such as reading the newspaper or watching television: not at all 8. Moving or speaking so slowly that other people could have noticed. Or the opposite - being so fidgety or restless that you have been moving around a lot more than usual: not at all 9. Thoughts that you would be better off or of hurting yourself in some way: not at all Total score: 0 Depression Screening Interpretation: Negative Depression Screening Done: Yes 42013 - PHQ-9 Billing: Yes Source: Developed by Drs. Thierry L. Enriqueta Vela Kurt Kroenke and colleagues, with an educational hitesh from Anne Fogarty. Thrive Questionnaire Date Thrive assessed: 10/13/24 I am a: Patient What is your living situation today?: I have a steady place to live Within the past 12 months, did the food you bought not last and you didn't have the money to get more?: Never true Within the past 12 months, did you worry whether your food would run out before you got money to buy more?: Never true Do you have trouble paying for medicines?: No Do you have trouble getting transportation to medical appointments?: No Do you have trouble paying your heating and electricity bill?: No Do you have trouble taking care of your child, family member or friend?: No Do you have trouble with day-to-day activities such as bathing, preparing meals, shopping, managing finances, etc.?: Yes Are you currently unemployed and looking for a job?: No Are you interested in more education?: No Please select the resources that you would like help with: None Currently or been in a relationship where the following occur: No concerns reported THRIVE Score: 0 AUDIT C Alcohol Use Questionnaire (AUDIT-C) 1. How often do you have a drink containing alcohol?: Never Total Score: 0 MEERA-7 AMB Questionnaire MEERA-7 Date MEERA - 7 assessed: 10/20/24 Feeling nervous, anxious, or on edge: 0 = Not at all Not being able to stop or control worryin = Not at all Worrying too much about different things: 0 = Not at all Trouble relaxin = Not at all Being so restless that it is hard to sit still: 0 = Not at all Becoming easily annoyed or irritable: 0 = Not at all Feeling afraid as if something awful might happen: 0 = Not at all Total MEERA-7 score (0-4 normal; 5-9 mild; 10-14 moderate; 15-21 severe): 0 Source: Developed by Drs. Thierry Vela, Isaías Mancilla and colleagues, with an educational hitesh from Anne Fogarty. Physical exam (Primary Care) Vital Signs: Last Vital Signs Temp 97.6 F 10/20/24 08:47 Pulse 72 10/20/24 08:47 Resp 16 10/20/24 08:47 BP 102/62 10/20/24 08:47 Pulse Ox 98 10/20/24 08:47 Oxygen Delivery Method Room Air 10/20/24 08:47 BMI result Body Mass Index 29.4 Tobacco/Smoking Status: Tobacco use Status Tobacco use date assessed 10/20/24 10/20/24 08:50 Patient Tobacco Use Status Never used Tobacco 10/20/24 08:35 e-Cigarette/Vaping Use Never Used 10/20/24 08:35 PHQ-9: PHQ-9 Score PHQ-9: Total score 0 10/20/24 08:54 Depression Screening Interpretation: Negative Thrive Assessment: Date of Thrive Assessment Date Thrive assessed 10/13/24 10/20/24 08:35 Currently or been in a relationship where the following occur: No concerns reported Results AMB Hemoglobin A1c AMB Hemoglobin A1c 5.3 % Last Edit by Gail De La Fuente CMA on 10/20/24 08:58 Results Reviewed Results Reviewed: Laboratory Last Values Hgb A1c (Clinic) 5.3 % (4.0-6.0) 10/20/24 08:57 Coding Diagnoses Moderate to severe aortic stenosis I35.0 Additional Codes PHQ-9 - 52904 - PHQ-9 Billing: Yes ([id number]) Assessment & Plan Assessment & Plan (1) Moderate to severe aortic stenosis: Code(s): I35.0 - Nonrheumatic aortic (valve) stenosis Category: Medical Orders: Orders AMB Hemoglobin A1c Today E11.9 - Type 2 diabetes mellitus without complications, 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
[2024-10-20 08:47] VITALS: BP 102/62; PULSE 72; RESP 16; TEMP 36.4; O2SAT 98; BMI 29.4
== END 2024-10-20 09:32 | disposition home or self-care (01) ==
LOC: HO.HMCC 08:26
PROVIDERS: PCP Internal Medicine; Visit Provider Internal Medicine
DX: E11.9 Type 2 diabetes mellitus without complications (principal); Z79.4 Long term (current) use of insulin

== ENCOUNTER → 2024-10-20 08:25 | Outpatient (BNVA) | payer MEDICARE, MEDICAID, SELFPAY | PROVIDERS: PCP Internal Medicine; Visit Provider Internal Medicine | DX: Z00.01 Encounter for general adult medical examination with abnormal findings (principal); I35.0 Nonrheumatic aortic (valve) stenosis; E11.649 Type 2 diabetes mellitus with hypoglycemia without coma; Z79.4 Long term (current) use of insulin; G62.1 Alcoholic polyneuropathy; R35.1 Nocturia; N32.81 Overactive bladder | CPT/HCPCS: 83036; 96127; 99397 ==

== ENCOUNTER 2024-10-22 14:04 | Outpatient (AMB) | payer MEDICARE, MEDICAID, SELFPAY ==
--- NOTE | 2024-10-22 14:10 | A.OFFVIS_ITS ---
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 Patient was seen at [facility] walk in clinic with complaints of pain in both of his shoulders, hx of right shoulder chronic pain. His right shoulder pain presented after attending physical therapy for a different condition. Per patient PT was trying to have him catch and throw a large yoga ball, and he was unable to lift the right arm due to the pain. He was referred to orthopedics. He states that he is having a some shoulder pain today. Patient has taken tylenol with relief. IMPRESSION: 1. Limited internally rotated image of the right shoulder. Within limits of study, no evidence of acute injury to the right shoulder. 2. Posttraumatic and advanced degenerative changes involving the right shoulder. 3. Decreased subacromial joint space can be associated with chronic rotator cuff injury. 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 Rodriguez is a 79-year-old male who presents to the office today with complaints of chronic right shoulder pain. He is accompanied in the office today by a staff member from his home. He lives in a home for patients with traumatic brain injury. Patient was being seen at physical therapy for a different condition and the therapist was having him catch and throw a large yoga ball. After the session he was unable to lift the right arm due to pain. He was then referred to Orthopedics for further evaluation and treatment. Reports mild shoulder pain today and has taken Tylenol with relief. [facility] Medical History History of vitamin D deficiency Moderate to severe aortic stenosis Systolic murmur Diabetes mellitus, with long-term current use of insulin Impaired cognitive ability Anemia Nocturia Urinary urgency Weak urinary stream Incomplete emptying of bladder Vitamin D deficiency Encounter for general adult medical examination with abnormal findings Gait instability Alcohol-induced polyneuropathy Arthralgia Essential hypertension Dyslipidemia History of CVA with residual deficit Surgical History History of ventral hernia repair Hx of cholecystectomy Family History Father Unknown family medical history Mother Unknown family medical history Social History Housing: Assisted Living Facility Alcohol intake: never Patient Tobacco Use Status: Never used Tobacco e-Cigarette/Vaping Use: Never Used Second Hand Smoke Exposure: No Current occupational status: disabled Cognitive needs: No Hearing needs: Yes Vision needs: Yes Review of Systems Const All systems reviewed & are unremarkable except as noted in HPI and below Physical Exam Vital Signs: BMI result Body Mass Index 29.4 Const General: cooperative, healthy appearing and no acute distress Extrem Other: Right shoulder lacking about 45 degrees of forward flexion and abduction. No pain with cross-body reach. Negative drop arm. Unable to follow directions for empty can due to baseline mentality. NVI. Assessment & Plan Assessment & Plan (1) Osteoarthritis of right shoulder: Code(s): M19.011 - Primary osteoarthritis, right shoulder Category: Medical Plan Mr. Rodriguez is a 79-year-old male who presents to the office today with complaints of chronic right shoulder pain. He is accompanied in the office today by a staff member from his home. He lives in a home for patients with traumatic brain injury. Patient was being seen at physical therapy for a different condition and the therapist was having him catch and throw a large yoga ball. After the session he was unable to lift the right arm due to pain. He was then referred to Orthopedics for further evaluation and treatment. Reports mild shoulder pain today and has taken Tylenol with relief. While in the office today, I discussed with the staff member who is accompanying the patient that the patient has significant right shoulder osteoarthritis. We discussed the role of cortisone injection however the patient is experiencing only very mild pain today. Therefore we have elected to defer at this time. Should his right shoulder began to become more painful I would be happy to offer him a cortisone injection. He will follow up PRN, sooner if needed. X-rays of the right shoulder which were obtained on 09/04/2024, revealed significant osteoarthritis. Coding Level of Care Code New Pt Level 3 (62414) Diagnoses Osteoarthritis of right shoulder M19.011
[2024-10-22 14:15] VITALS: BMI 29.4
== END 2024-10-22 15:23 | disposition home or self-care (01) ==
LOC: HO.HOS 14:04
PROVIDERS: Visit Provider Physician Assistant
DX: M19.011 Primary osteoarthritis, right shoulder (principal)
CPT/HCPCS: 99203

== ENCOUNTER → 2024-10-22 14:04 | Outpatient (BNVA) | payer MEDICARE, MEDICAID, SELFPAY | PROVIDERS: Visit Provider Physician Assistant | DX: M19.011 Primary osteoarthritis, right shoulder (principal) | CPT/HCPCS: 99202 ==

== ENCOUNTER 2024-11-10 15:33 | Outpatient (AMB) | payer MEDICARE, MEDICAID, SELFPAY ==
--- NOTE | 2024-11-10 15:48 | AM.OFFVISNUR ---
Intake Visit Reasons: B12 injection Allergies No Known Allergies [No Known Allergies*] Allergy (Verified 10/20/24 09:08) Nursing Note Pt came in for monthly administration of Vitamin B12 which was injected in right deltoid. Pt tolerated well Office Meds cyanocobalamin (vitamin B-12) 1,000 mcg/mL injection solution Performing Provider: Nora Castillo MD Performing Location: [facility] Administered by: Fransisca Figueroa on 11/10/24 16:05 Dose Route Admin Location Dispensed Lot Number Expiration Date [facility] Staffing Assistant 1,000 mcg IM right deltoid 1 mL [id number] 11/09/26 19450-253-15 GIANNI GONZALES Assessment & Plan Assessment & Plan Orders: Orders AMB Vitamin B12 Injection Patient Supplied Today E53.8 - Deficiency of other specified B group vitamins Medications: New cyanocobalamin (vitamin B-12) 1,000 mcg IM ONCE 1 mL 0RF E53.8 - Deficiency of other specified B group vitamins Coding
== END 2024-11-10 15:53 | disposition home or self-care (01) ==
LOC: HO.HMCC 15:34
PROVIDERS: Visit Provider Internal Medicine
DX: E53.8 Deficiency of other specified B group vitamins (principal)

== ENCOUNTER → 2024-11-10 15:33 | Outpatient (BNVA) | payer MEDICARE, MEDICAID, SELFPAY | PROVIDERS: Visit Provider Internal Medicine | DX: E53.8 Deficiency of other specified B group vitamins (principal) | CPT/HCPCS: 96372; J3420 ==

== ENCOUNTER → 2024-11-30 15:08 | Outpatient (REF) | payer MEDICARE, MEDICAID, SELFPAY ==
--- NOTE | 2024-11-30 15:12 | CA_ITS ---
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 Normal LV ejection fraction of 60 65% with impaired relaxation filling pattern 2. Mildly dilated left atrium 3. Moderate to severe aortic stenosis 4. Mildly dilated ascending aorta 5. No gross pericardial effusion Findings Procedure Information The study quality is limited by the patients inability to tolerate the test. Left Ventricle Normal left ventricular size, thickness, and systolic function. The visually estimated ejection fraction is between 60-65%. Spectral Doppler is indicative of an impaired relaxation filling pattern. E/E prime ratio is between 8 and 15 consistent with indeterminate filling pressures. There is mild septal asymmetric hypertrophy. Right Ventricle Normal right ventricular cavity size and systolic function. Atria The left atrium is mildly dilated. There is no evidence of interatrial shunt. The right atrium is likely dilated. Aortic Valve There is moderate calcification of the aortic valve. There is moderate thickening of the aortic valve. There is moderate to severe aortic valve stenosis. The mean gradient is 35 mmHg. The aortic valve area is 1.10 cm2. There is no aortic valve regurgitation. Mitral Valve There is mild anterior and severe posterior mitral leaflet thickening. There is severe mitral annular calcification. There is trace mitral valve regurgitation. There is no mitral valve stenosis. Pulmonic Valve The pulmonic valve was not well visualized. Tricuspid Valve Likely normal tricuspid valve structure and function. Tricuspid regurgitation envelope is inadequate for calculation of right ventricular systolic pressure. Normal right atrial pressure. Great Vessels The pulmonary artery was not well visualized. There is mild dilatation of the ascending aorta measuring 3.90 cm. Small plaque is seen in the sino tubular ridge. Venous The inferior vena cava is normal in size and collapses greater than 50% with inspiration. Pericardium/Pleural There is no evidence of pericardial effusion. Prior Study Comparison Changes noted compared to prior study dated: 06/13/2023. no significant change Measurements 2D Linear Measurements IVSd: 1.31 0.6-0.9/0.6-1.0 cm LVIDd: 3.99 3.9-5.3/4.2-5.9 cm LVIDd Index: 1.94 2.4-3.2/2.2-3.1 cm/m2 LVIDs: 2.50 2.0-3.6 cm LVPWd: 1.05 0.7-1.1 cm LA Diam: 4.00 2.7-3.8/3.0-4.0 cm LAIDs Index: 1.94 1.5-2.3 cm/m2 LV Mass: 200.23 67-162/88-224 g LV Mass Index: 97.20 43-95/49-115 g/m2 LVOT Diam: 2.20 3.0+(-)1.3 cm Mitral Valve MV VTI: 0.44 MV Pk Mundo: 1.66 MV Mn Mundo: 0.98 MV Pk Grad: 11.00 MV Mn Grad: 5.00 MV Pk E: 1.11 MV PK A: 1.61 MV Decel Time: 244.00 E/A: 0.70 E'Lateral: 4.90 E'Medial: 5.11 E/E' Med: 21.70 E/E' Lat: 22.70 PHT: 72.00 MVA PHT: 3.06 MVA Continuity: 2.17 Decel [place]: 4.56 Aortic Valve AoV Pk Mundo: 3.72 AoV Mn Mundo: 2.86 AoV VTI: 0.87 AoV Pk Grad: 55.00 Aov Mn Grad: 35.00 CHIDI Cont.VTI: 1.10 LVOT LVOT Pk Mundo: 1.07 LVOT Mn Mundo: 0.73 LVOT VTI: 0.25 LVOT Pk Grad: 5.00 LVOT Mn Grad: 2.00 LVOT Diam: 2.20 LVOT Area: 3.80 Diastolic Function MV Pk E: 1.11 MV Pk A: 1.61 E/A: 0.70 E'Medial: 5.11 E/E' Med: 21.70 E' Laterial: 4.90 E/E' Lat: 22.70 Right Ventricle TAPSE (mm): 29.50 TVS' Mundo: 12.20 Great Vessels Aorta Sinus of Valsalva: 3.38 2.0-3.5 cm Ao Asc: 3.90 2.1-3.4 cm Updated in Other Vendor System with Status of Final Dave Orta MD electronically signed on 11/30/2024 6:22:27 PM with status of Final
== END ==
LOC: HO.CARD 15:08
PROVIDERS: PCP Internal Medicine; Visit Provider Internal Medicine
DX: I35.0 Nonrheumatic aortic (valve) stenosis (principal)
CPT/HCPCS: 93306

== ENCOUNTER → 2024-11-30 15:12 | Outpatient (BNV) | payer MEDICARE, MEDICAID, SELFPAY | PROVIDERS: PCP Internal Medicine; Visit Provider Internal Medicine Cardiovascular Disease | DX: I35.0 Nonrheumatic aortic (valve) stenosis (principal); I70.0 Atherosclerosis of aorta; I34.81 Nonrheumatic mitral (valve) annulus calcification | CPT/HCPCS: 93306 ==

== ENCOUNTER 2024-12-13 15:42 | Outpatient (AMB) | payer MEDICARE, MEDICAID, SELFPAY ==
--- NOTE | 2024-12-13 16:40 | AM.OFFVISNUR ---
Intake Visit Reasons: B12 Intake Note: Pt arrived for monthly B-12 injection. 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
== END 2024-12-13 16:35 | disposition home or self-care (01) ==
PROVIDERS: PCP Internal Medicine; Visit Provider Internal Medicine
DX: E53.8 Deficiency of other specified B group vitamins (principal)

== ENCOUNTER → 2024-12-13 15:42 | Outpatient (BNVA) | payer MEDICARE, MEDICAID, SELFPAY | PROVIDERS: PCP Internal Medicine; Visit Provider Internal Medicine | DX: E53.8 Deficiency of other specified B group vitamins (principal) | CPT/HCPCS: 96372; J3420 ==

== ENCOUNTER 2025-01-06 12:52 | Outpatient (AMB) | payer MEDICARE, MEDICAID, SELFPAY ==
[2025-01-06 13:23] VITALS: BP 98/62; PULSE 84; TEMP 37.2; O2SAT 97
--- NOTE | 2025-01-06 13:23 | MHC.OFFWIV ---
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 They report fatigue, bodyaches and mild/productive cough over the last 2 days. He historically has had cough medicine for prn use, however the longterm has run out of this. [facility] worker denies any other sick staff or residents at longterm. Denies patient has had any fevers, shortness of breath, or other symptoms, however patient has seemed a little more tired than usual. [facility] Medical History History of vitamin D deficiency Moderate to severe aortic stenosis Systolic murmur Diabetes mellitus, with long-term current use of insulin Impaired cognitive ability Anemia Nocturia Urinary urgency Weak urinary stream Incomplete emptying of bladder Vitamin D deficiency Encounter for general adult medical examination with abnormal findings Gait instability Alcohol-induced polyneuropathy Arthralgia Essential hypertension Dyslipidemia History of CVA with residual deficit Surgical History History of ventral hernia repair Hx of cholecystectomy Family History Father Unknown family medical history Mother Unknown family medical history Social History Housing: Assisted Living Facility Alcohol intake: never Patient Tobacco Use Status: Never used Tobacco e-Cigarette/Vaping Use: Never Used Second Hand Smoke Exposure: No Current occupational status: disabled Cognitive needs: No Hearing needs: Yes Vision needs: Yes Review of Systems Const All systems reviewed & are unremarkable except as noted in HPI and below Physical Exam Vital Signs: Last Vital Signs Temp 98.9 F 01/06/25 13:23 Pulse 84 01/06/25 13:23 BP 90/62 01/06/25 13:23 Pulse Ox 97 01/06/25 13:23 Oxygen Delivery Method Room Air 01/06/25 13:23 Const General: cooperative and no acute distress Limitations: wheelchair HEENT Head: Yes normal to inspection Ears: hearing grossly normal bilaterally General nose exam: Normal external nose present Mouth: Normal oral and palatal mucosa present Throat: Yes posterior oropharynx normal Neck Neck: Yes no lymphadenopathy Resp Effort & Inspection: normal respiratory effort and Actively coughing Quality: wet Auscultation: clear to auscultation bilaterally Cardio Rate: regular rate Rhythm: regular rhythm Skin General skin exam: no rashes or lesions noted Extrem General: Yes capillary refill normal and Yes no clubbing, cyanosis or edema Psych Appearance: grossly normal Mental Status: mental status grossly normal Speech and movement: Normal speech and movement present Assessment & Plan Assessment & Plan (1) Upper respiratory infection: Code(s): J06.9 - Acute upper respiratory infection, unspecified Plan: Presentation is consistent with a viral upper respiratory infection. Cold/flu/RSV swab was obtained, and patient and intelligence group supervisor present are aware that they will be notified of results once these are available. I encouraged conservative measures, and wrote such recommendations on longterm paperwork. He has p.r.n. Tylenol and cough medicine ordered, I have refilled cough medicine per their request. I have recommended that if patient does not improve with time and conservative measures, or if he develops any shortness of breath, fevers/chills, lethargy, he should return to clinic or the emergency department for further evaluation. Patient and intelligence group supervisor present both verbalized understanding and agreed to plan. Orders: Orders SARS-CoV2/FLU/RSV Today J06.9 - Acute upper respiratory infection, unspecified Medications: New dextromethorphan-guaifenesin 10-200 mg/5 mL (Diabetic Tussin DM) 10 mL PO Q8H PRN 237 mL 1RF cough R05.9 - Cough, unspecified Coding Level of Care Code Est Pt Level 4 (80570) Diagnoses Upper respiratory infection J06.9
== END 2025-01-06 14:49 | disposition home or self-care (01) ==
PROVIDERS: PCP Internal Medicine; Visit Provider Nurse Practitioner Family
DX: J06.9 Acute upper respiratory infection, unspecified (principal)

== ENCOUNTER 2025-01-06 12:52 | Outpatient (REF) | payer MEDICARE, MEDICAID, SELFPAY ==
[2025-01-06 16:54] LABS: Resp Syncy Virus RNA Qual PCR NEGATIVE (Negative); SARS COV2 PCR INHOUSE POSITIVE (Negative)
== END 2025-01-06 12:53 | disposition home or self-care (01) ==
LOC: HO.LNP 12:52
PROVIDERS: PCP Internal Medicine; Visit Provider Nurse Practitioner Family
DX: J06.9 Acute upper respiratory infection, unspecified (principal); R05.9 Cough, unspecified; Z20.822 Contact with and (suspected) exposure to COVID-19
CPT/HCPCS: 87637; 99212

== ENCOUNTER 2025-01-17 15:36 | Outpatient (AMB) | payer MEDICARE, MEDICAID, SELFPAY ==
--- NOTE | 2025-01-17 15:47 | AM.OFFVISNUR ---
Intake Visit Reasons: B-12 Intake Note: Pt arrived for monthly B-12 injection Allergies No Known Allergies (No Known Allergies*) Allergy (Verified 01/06/25 13:29) Office Meds cyanocobalamin (vitamin B-12) 1,000 mcg/mL injection solution Performing Provider: Nora Castillo MD Performing Location: [facility] [place] [facility] Primary [facility] Administered by: Ania Staples RN on 01/17/25 15:47 Dose Route Admin Location Dispensed Lot Number Expiration Date [facility] Mexican Food Maker Hand 1,000 mcg IM Right deltoid 1 mL [id number] 03/23/26 58199-272-57 [employer]ant [employer] Total Dispensed Waste 1 mL 0 % Comments: Pt supplied Assessment & Plan Assessment & Plan Orders: Orders AMB Vitamin B12 Injection Patient Supplied Today E53.8 - Deficiency of other specified B group vitamins Coding
== END 2025-01-17 16:09 | disposition home or self-care (01) ==
LOC: HO.HMCC 15:36
PROVIDERS: PCP Internal Medicine; Visit Provider Internal Medicine
DX: E53.8 Deficiency of other specified B group vitamins (principal)

== ENCOUNTER → 2025-01-17 15:36 | Outpatient (BNVA) | payer MEDICARE, MEDICAID, SELFPAY | PROVIDERS: PCP Internal Medicine; Visit Provider Internal Medicine | DX: E53.8 Deficiency of other specified B group vitamins (principal) | CPT/HCPCS: 96372; J3420 ==

== ENCOUNTER 2025-01-27 11:27 | Outpatient (AMB) | payer MEDICARE, MEDICAID, SELFPAY ==
--- NOTE | 2025-01-27 11:34 | A.OFFPC_ITS ---
Vital Signs 01/27/25 11:36 Height 5 ft 6 in Weight 196 lb BMI 31.6 BP 100/64 Blood Pressure Location Rt brachial Position Sitting Respiration 17 Pulse 72 Pulse Source Pulse Oximeter Temp 97.8 F Temp Source Oral Pulse Oximetry (%) 97 Oxygen Delivery Method Room Air Intake Visit Reasons: 3m f/u Intake Note: Pt is here today for his 3mo. f/u DM Telehealth Case Manager: Present Accompanied by: tank car mechanic (Henry) Allergies No Known Allergies (No Known Allergies*) Allergy (Verified 01/27/25 11:53) Medication List - Last Reconciled 01/27/25 by Nora Castillo MD acetaminophen ER 650 mg PO Q8H PRN [adult x-large pull-ups As directed NS] aspirin 81 mg PO QAM atorvastatin 10 mg PO BEDTIME blood sugar diagnostic (Contour Next Test Strips) use one strip twice a day to check blood sugar before meals blood sugar diagnostic (True Metrix Pro Test Strip) Check blood glucose twice daily as directed blood-glucose meter True Metrix - check blood sugar twice per day as directed blood-glucose meter (True Metrix Glucose Meter) As directed cholecalciferol (vitamin D3) 50 mcg orally in AM; cyanocobalamin (vitamin B-12) 1,000 mcg IM Q4W 30 days dextromethorphan-guaifenesin 10-200 mg/5 mL (Diabetic Tussin DM) 10 mL PO Q8H PRN diclofenac sodium 1% 2 grams topical QID docusate sodium 200 mg (2 x 100 mg) PO QAM finasteride 5 mg PO DAILY 90 days gabapentin 600 mg PO BID insulin degludec (Tresiba FlexTouch U-200 insulin) 42 units (0.21 mL) subcut QAM lancets (Safety Lancets) To test blood sugars twice a day lisinopril 5 mg orally IN AM; magnesium hydroxide ([place]rawley Milk of Magnesia) 1,200 mg (15 mL) PO DAILY PRN meloxicam 7.5 mg PO DAILY PRN metformin 1,000 mg PO BID mirabegron ER 50 mg PO DAILY 90 days pen needle, diabetic (Tomasa 2nd Gen Pen Needle) USE DIRECTED FOR INSULIN INJECTION sennosides (senna) 17.2 mg (2 x 8.6 mg) PO BEDTIME PRN terazosin 10 mg PO DAILY 90 days Tobacco use date assessed: 01/27/25 Fall risk assessment: No Falls in past year Last assessed Fall Risk: 01/27/25 Dental Screening Dental Screen Date: 10/20/24 Did you have a dental visit in the last 12 months?: No Did you have a dental problem in the last 6 months where you did not have access to dental care?: No Was dental information given to patient?: Patient declined HPI 3m f/u HPI Details 79-year-old male with history of diabete s mellitus, dyslipidemia, hypertension, aortic valve stenosis, and anemia, here today for follow-up. Unfortunately patient did not get his fasting labs done that was ordered on last visit. -Hemoglobin A1c today is at 5.8%, curren tly on Tresiba 42 units at night and metformin 1000 mg taken 1 tablet twice a day. Up-to-date with his diabetes retinopathy screening, sees Dr. Santos, last appointment was in 06/11/2024, d ue again for a repeat eye exam in May this year. -echocardiogram done November 2024 showed pr esence of moderate to severe aortic stenosis, as per caregiver, patient has not been complaining of any shortness of breath or lightheadedness, no complaints of chest pain.. Reminded that he does have an appointment to see Cardiology, Dr. Allen on 02/14/2025. -Blood pressure stable controlled on lis inopril. Currently on atorvastatin 10 mg at bedtime for his lipids. Reminded to get his fasting labs done. He gets vitamin B12 injections monthly, due again on 02/14/2025 -has anemia, was scheduled for [place] py screening last October 2023 but anesthesia cancer procedure due to unresolved issue regarding aortic stenosis. [facility] Medical History History of vitamin D deficiency Moderate to severe aortic stenosis Systolic murmur Diabetes mellitus, with long-term current use of insulin Impaired cognitive ability Anemia Nocturia Urinary urgency Weak urinary stream Incomplete emptying of bladder Vitamin D deficiency Encounter for general adult medical examination with abnormal findings Gait instability Alcohol-induced polyneuropathy Arthralgia Essential hypertension Dyslipidemia History of CVA with residual deficit Surgical History History of ventral hernia repair Hx of cholecystectomy Family History Father Unknown family medical history Mother Unknown family medical history Social History Housing: Assisted Living Facility Alcohol intake: never Patient Tobacco Use Status: Never used Tobacco e-Cigarette/Vaping Use: Never Used Second Hand Smoke Exposure: No Current occupational status: disabled Cognitive needs: No Hearing needs: Yes Vision needs: Yes Questionnaire Thrive Questionnaire Date Thrive assessed: 10/13/24 I am a: Patient What is your living situation today?: I have a steady place to live Within the past 12 months, did the food you bought not last and you didn't have the money to get more?: Never true Within the past 12 months, did you worry whether your food would run out before you got money to buy more?: Never true Do you have trouble paying for medicines?: No Do you have trouble getting transportation to medical appointments?: No Do you have trouble paying your heating and electricity bill?: No Do you have trouble taking care of your child, family member or friend?: No Do you have trouble with day-to-day activities such as bathing, preparing meals, shopping, managing finances, etc.?: Yes Are you currently unemployed and looking for a job?: No Are you interested in more education?: No Please select the resources that you would like help with: None Currently or been in a relationship where the following occur: No concerns reported THRIVE Score: 0 MEERA-7 AMB Questionnaire MEERA-7 Date MEERA - 7 assessed: 10/20/24 Source: Developed by Drs. Thierry Vela, Enriqueta Mosley, Isaías Mccloud and colleagues, with an educational hitesh from [employer]. Review of Systems Const All systems reviewed & are unremarkable except as noted in HPI and below Reports no additional complaints Eyes Details: Up-to-date with diabetes retinopathy screening, sees Dr. Santos ENT Reports no additional complaints Card Reports no additional complaints Resp Reports no additional complaints GI Denies abdominal pain, Denies melena, Denies bloating, Denies change in bowel habits and Denies heartburn Reports no additional complaints Musc Reports no additional complaints Neuro Reports no additional complaints and Reports Abnormal speech present Psych Reports no additional complaints Endo Reports no additional complaints Alen/Lymph Denies easy bleeding and Denies easy bruising Aller/Immun Reports no additional complaints Physical exam (Primary Care) Vital Signs: Last Vital Signs Temp 97.8 F 01/27/25 11:36 Pulse 72 01/27/25 11:36 Resp 17 01/27/25 11:36 BP 100/64 01/27/25 11:36 Pulse Ox 97 01/27/25 11:36 Oxygen Delivery Method Room Air 01/27/25 11:36 BMI result Body Mass Index 31.6 Tobacco/Smoking Status: Tobacco use Status Tobacco use date assessed 01/27/25 01/27/25 11:48 Patient Tobacco Use Status Never used Tobacco 01/27/25 11:35 e-Cigarette/Vaping Use Never Used 01/27/25 11:35 Thrive Assessment: Date of Thrive Assessment Date Thrive assessed 10/13/24 01/27/25 11:35 Currently or been in a relationship where the following occur: No concerns reported Const Other: Awake, able to answer simple questions, has garbled speech, accompanied by caregiver, wheelchair borne General: other (Wheelchair borne, stands for short amounts of time with assistance) Nutritional Appearance: obese HENMT Head: Yes normocephalic Ears: external ears normal General nose exam: Normal external nose present Face and sinus: Yes face symmetric Mouth: Normal oral and palatal mucosa present Teeth and gingiva: edentulous Eyes General: appearance normal, both eyes and all related structures Neck Neck: Yes full ROM, Yes no lymphadenopathy and Yes supple Resp Effort & Inspection: normal respiratory effort Auscultation: clear to auscultation bilaterally Cardio Rate: regular rate Rhythm: regular rhythm Heart sounds: S1 normal heart sound present, S2 normal heart sound present and Murmur heart sound present systolic GI Inspection: Yes obesity Palpation (GI): Soft to palpation, nontender, no guarding and no masses Auscultation: normal bowel sounds General: Yes no CVA tenderness Back/Spine/Pelvis Back: no CVA tenderness and No back tenderness Neuro General: CN's II-XI intact bilaterally Speech: Abnormal speech present Gait exam (Neuro): Assisted gait required Gait assisted method: wheelchair bound Extrem Other: No gross bone deformity, crepitus noted in both knees Results AMB Hemoglobin A1c AMB Hemoglobin A1c 5.8 % Last Edit by Gail De La Fuente CMA on 01/27/25 11:52 Results Reviewed Results Reviewed: Laboratory Last Values Hgb A1c (Clinic) 5.8 % (4.0-6.0) 01/27/25 11:49 Coding Level of Care Code Est Pt Level 4 (87967) Diagnoses Essential hypertension I10 Moderate to severe aortic stenosis I35.0 Dyslipidemia E78.5 Type 2 diabetes mellitus with hypoglycemia without coma, with long-term current use of insulin E11.649; Z79.4 Diabetes mellitus type: type 2 Diabetes mellitus complication status: with hypoglycemia Diabetes mellitus complication detail: without coma B12 deficiency E53.8 Anemia, unspecified type D64.9 Anemia type: unspecified type Assessment & Plan Assessment & Plan (1) Essential hypertension: Code(s): I10 - Essential (primary) hypertension Category: Medical (2) Moderate to severe aortic stenosis: Code(s): I35.0 - Nonrheumatic aortic (valve) stenosis Category: Medical (3) Dyslipidemia: Code(s): E78.5 - Hyperlipidemia, unspecified Category: Medical (4) Diabetes mellitus, with long-term current use of insulin: Code(s): E11.9 - Type 2 diabetes mellitus without complications; Z79.4 - intermediate card tender (current) use of insulin Category: Medical Qualifiers: Diabetes mellitus type: type 2 Diabetes mellitus complication status: with hypoglycemia Diabetes mellitus complication detail: without coma Qualified Code(s): E11.649 - Type 2 diabetes mellitus with hypoglycemia without coma; Z79.4 - long-term (current) use of insulin (5) B12 deficiency: Code(s): E53.8 - Deficiency of other specified B group vitamins Category: Medical (6) Anemia: Code(s): D64.9 - Anemia, unspecified Category: Medical Qualifiers: Anemia type: unspecified type Qualified Code(s): D64.9 - Anemia, unspecified Plan The patient will continue with his current diabetes management regimen, including Triceba and metformin, as his blood sugar levels are well-controlled. For dyslipidemia, the patient will remain on atorvastatin 10 mg at bedtime. Hypertension management will continue with lisinopril and hydrochlorothiazide, The patient is advised to follow up with cardiology for his aortic stenosis, with an appointment scheduled on February 14. He is reminded to get his fasting labs done, including cholesterol, liver function, electrolytes, and a complete blood count. Preventative care includes ensuring vaccinations are up-to-date, specifically the flu shot and COVID-19 booster. Patient was informed and verbally consented to the use of an ambient scribe for clinic note documentation during this visit. Orders: Orders AMB Hemoglobin A1c Today E11.649 - Type 2 diabetes mellitus with hypoglycemia without coma, Z79.4 - intermediate card tender (current) use of insulin
[2025-01-27 11:36] VITALS: BP 100/64; PULSE 72; RESP 17; TEMP 36.6; O2SAT 97; BMI 31.6
== END 2025-01-27 12:31 | disposition home or self-care (01) ==
LOC: HO.HMCC 11:27
PROVIDERS: PCP Internal Medicine; Visit Provider Internal Medicine
DX: I10 Essential (primary) hypertension (principal); I35.0 Nonrheumatic aortic (valve) stenosis; E78.5 Hyperlipidemia, unspecified; E11.649 Type 2 diabetes mellitus with hypoglycemia without coma; Z79.4 Long term (current) use of insulin; E53.8 Deficiency of other specified B group vitamins; D64.9 Anemia, unspecified

== ENCOUNTER → 2025-01-27 11:27 | Outpatient (BNVA) | payer MEDICARE, MEDICAID, SELFPAY | PROVIDERS: PCP Internal Medicine; Visit Provider Internal Medicine | DX: I10 Essential (primary) hypertension (principal); I35.0 Nonrheumatic aortic (valve) stenosis; E78.5 Hyperlipidemia, unspecified; E11.649 Type 2 diabetes mellitus with hypoglycemia without coma; E53.8 Deficiency of other specified B group vitamins; D64.9 Anemia, unspecified; Z79.4 Long term (current) use of insulin | CPT/HCPCS: 83036; 99212 ==

== ENCOUNTER 2025-02-14 14:23 | Outpatient (AMB) | payer MEDICARE, MEDICAID, SELFPAY ==
[2025-02-14 14:36] VITALS: BP 122/68; PULSE 76
--- NOTE | 2025-02-14 14:36 | MHC.OFFVIS ---
Vital Signs 02/14/25 14:36 Height 5 ft 6 in BMI Reason not done Patient refused/unable BP 122/68 Blood Pressure Location Lt brachial Position Sitting Pulse 76 Pulse Source Pulse Oximeter Intake Visit Reasons: NUTRITIONIST/Espinas/HTN/?Nonrheumatic aortic (valve) sten Allergies No Known Allergies (No Known Allergies*) Allergy (Verified 01/27/25 11:53) Medication List - Last Reconciled 02/14/25 by Gaurav Allen MD acetaminophen ER 650 mg PO Q8H PRN [adult x-large pull-ups As directed NS] aspirin 81 mg PO QAM atorvastatin 10 mg PO BEDTIME blood sugar diagnostic (Contour Next Test Strips) use one strip twice a day to check blood sugar before meals blood sugar diagnostic (True Metrix Pro Test Strip) Check blood glucose twice daily as directed blood-glucose meter True Metrix - check blood sugar twice per day as directed blood-glucose meter (True Metrix Glucose Meter) As directed cholecalciferol (vitamin D3) 50 mcg orally in AM; cyanocobalamin (vitamin B-12) 1,000 mcg IM Q4W 30 days dextromethorphan-guaifenesin 10-200 mg/5 mL (Diabetic Tussin DM) 10 mL PO Q8H PRN diclofenac sodium 1% 2 grams topical QID docusate sodium 200 mg (2 x 100 mg) PO QAM finasteride 5 mg PO DAILY 90 days gabapentin 600 mg PO BID insulin degludec (Tresiba FlexTouch U-200 insulin) 42 units (0.21 mL) subcut QAM lancets (Safety Lancets) To test blood sugars twice a day lisinopril 5 mg orally IN AM; magnesium hydroxide ([place] Milk of Magnesia) 1,200 mg (15 mL) PO DAILY PRN meloxicam 7.5 mg PO DAILY PRN metformin 1,000 mg PO BID mirabegron ER 50 mg PO DAILY 90 days pen needle, diabetic (Tomasa 2nd Gen Pen Needle) USE DIRECTED FOR INSULIN INJECTION sennosides (senna) 17.2 mg (2 x 8.6 mg) PO BEDTIME PRN terazosin 10 mg PO DAILY 90 days HPI Comments Details: Jose returns for follow-up. Last year, he was seen in consultation regarding aortic stenosis. He is on a [facility]. History of alcohol excess in the past but nothing recently. He comes in a wheelchair with staff from the [facility]. Within limits of his activity, he has not had any symptoms like chest pains or shortness of breath or dizziness or syncopal episodes. Patient himself is not a good historian. [facility] Medical History History of vitamin D deficiency Moderate to severe aortic stenosis Systolic murmur Diabetes mellitus, with long-term current use of insulin Impaired cognitive ability Anemia Nocturia Urinary urgency Weak urinary stream Incomplete emptying of bladder Vitamin D deficiency Encounter for general adult medical examination with abnormal findings Gait instability Alcohol-induced polyneuropathy Arthralgia Essential hypertension Dyslipidemia History of CVA with residual deficit Surgical History History of ventral hernia repair Hx of cholecystectomy Family History Father Unknown family medical history Mother Unknown family medical history Social History Housing: Assisted Living Facility Alcohol intake: never Patient Tobacco Use Status: Never used Tobacco e-Cigarette/Vaping Use: Never Used Second Hand Smoke Exposure: No Current occupational status: disabled Cognitive needs: No Hearing needs: Yes Vision needs: Yes Review of Systems Const Denies weakness ENT Denies dizziness Card Denies chest pain, Denies chest pain with activity, Denies syncope, Denies rapid heart rate, Denies pedal edema, Denies edema, Denies leg edema, Denies lightheadedness, Denies palpitations, Denies dyspnea, Denies dyspnea on exertion and Denies orthopnea Resp Denies cough, Denies dyspnea and Denies dyspnea on exertion GI Denies hematochezia and Denies change in stool character Musc Denies abnormal gait, Denies muscle cramps, Denies muscle weakness, Denies numbness, Denies radiating pain into limb and Denies tingling Neuro Denies abnormal gait, Denies dizziness, Denies syncope, Denies numbness, Denies tingling and Denies weakness Endo Denies palpitations Physical Exam Vital Signs: Last Vital Signs Pulse 76 02/14/25 14:36 BP 122/68 02/14/25 14:36 Const General: comfortable and no acute distress Orientation/consciousness: patient oriented x3 HEENT Other: Unremarkable Head: Yes normal to inspection Neck Neck: Yes normal visual inspection Chest Chest palpation & inspection: normal inspection of the chest Resp Auscultation: clear to auscultation bilaterally Cardio Palpation: normal PMI Heart sounds: S1 normal heart sound present, S2 normal heart sound present, no gallops, Murmur heart sound present systolic III/ and at the right sternal border and no rubs GI Palpation (GI): Soft to palpation Back/Spine/Pelvis Other: unremarkable Skin General skin exam: no rashes or lesions noted Neuro General: patient oriented x3 Extrem General: Yes normal to inspection Psych Mental Status: mental status grossly normal Assessment & Plan Assessment & Plan (1) Non-rheumatic aortic stenosis: Code(s): I35.0 - Nonrheumatic aortic (valve) stenosis Category: Medical Plan In the recent echocardiogram, LVEF is 60-65%. Mean gradient across aortic valve was 35 mm Hg with a valve area of 1.1 cm2. Overall, thought to be [id number] aortic stenosis. There is also severe mitral annular calcification. Findings discussed with the supervising from [facility]. At the current time, patient has no symptoms from the aortic stenosis itself and also he is not an ideal candidate for invasive procedures either. Hence advised him to watch out for any symptoms like shortness of breath or chest pains or dizzy spells and contact us immediately. Otherwise, we will plan on another echocardiogram in 6 months' time and we will also get him to see Interventional Cardiology at that time to see if he is even suitable for any invasive procedures. All questions answered. Discussion Notes We discussed the importance of monitoring the heart valve disorder with regular echocardiograms every six months. I advised that any new symptoms such as shortness of breath, chest pain, or dizziness should prompt immediate medical evaluation. Patient was informed and verbally consented to the use of an ambient scribe for clinic note documentation during this visit. Orders: Orders CA echo transthoracic complete 6 Months I35.0 - Nonrheumatic aortic (valve) stenosis Patient Instructions: - Continue regular follow-ups for heart valve monitoring. - Seek immediate medical attention if experiencing shortness of breath, chest pain, or dizziness. Coding Level of Care Code Est Pt Level 4 (92641) Complex EM visit Add On G2211 Diagnoses Non-rheumatic aortic stenosis I35.0
== END 2025-02-14 15:06 | disposition home or self-care (01) ==
LOC: HO.HCS 14:24
PROVIDERS: Visit Provider Internal Medicine
DX: I35.0 Nonrheumatic aortic (valve) stenosis (principal)
CPT/HCPCS: 99214; G2211

== ENCOUNTER → 2025-02-14 14:23 | Outpatient (BNVA) | payer MEDICARE, MEDICAID, SELFPAY | PROVIDERS: Visit Provider Internal Medicine | DX: I35.0 Nonrheumatic aortic (valve) stenosis (principal); E53.8 Deficiency of other specified B group vitamins | CPT/HCPCS: 96372; 99212; J3420 ==

== ENCOUNTER 2025-02-14 15:57 | Outpatient (AMB) | payer MEDICARE, MEDICAID, SELFPAY ==
--- NOTE | 2025-02-14 16:08 | AM.OFFVISNUR ---
Intake Visit Reasons: B-12 Allergies No Known Allergies (No Known Allergies*) Allergy (Verified 01/27/25 11:53) Nursing Note Pt came in medicated x 1 with Vitamin B12 to left deltoid. Pt tolerated well. Office Meds cyanocobalamin (vitamin B-12) 1,000 mcg/mL injection solution Performing Provider: Nora Castillo MD Performing Location: [facility] Administered by: Fransisca Figueroa on 02/14/25 16:08 Dose Route Admin Location Dispensed Lot Number Expiration Date [facility] Rib Sawyer 1,000 mcg IM left deltoid 1 mL [id number] 04/11/26 94665-328-86 [employer] Total Dispensed Waste 1 mL 0 % Assessment & Plan Assessment & Plan Orders: Orders AMB Vitamin B12 Injection Patient Supplied Today E53.8 - Deficiency of other specified B group vitamins Coding
== END 2025-02-14 16:11 | disposition home or self-care (01) ==
LOC: HO.HMCC 15:57
PROVIDERS: Visit Provider Internal Medicine
DX: E53.8 Deficiency of other specified B group vitamins (principal)

== ENCOUNTER 2025-03-14 15:39 | Outpatient (AMB) | payer MEDICARE, MEDICAID, SELFPAY ==
--- NOTE | 2025-03-14 16:11 | AM.OFFVISNUR ---
Intake Visit Reasons: B-12 shot Allergies No Known Allergies (No Known Allergies*) Allergy (Verified 01/27/25 11:53) Nursing Note Pt came with software support specialist. Vitamin B12 x 1 to left deltoid. Pt tolerated well. Office Meds cyanocobalamin (vitamin B-12) 1,000 mcg/mL injection solution Performing Provider: Nora Castillo MD Performing Location: [facility] Administered by: Fransisca Figueroa on 03/14/25 16:12 Dose Route Admin Location Dispensed Lot Number Expiration Date [facility] Flange Turner 1,000 mcg IM left deltoid 1 mL [id number] 04/11/26 11046-233-44 [employer] Total Dispensed Waste 1 mL 0 % Assessment & Plan Assessment & Plan Orders: Orders AMB Vitamin B12 Injection Patient Supplied Today E53.8 - Deficiency of other specified B group vitamins Coding
== END 2025-03-14 15:53 | disposition home or self-care (01) ==
PROVIDERS: Visit Provider Internal Medicine
DX: E53.8 Deficiency of other specified B group vitamins (principal)

== ENCOUNTER → 2025-03-14 15:39 | Outpatient (BNVA) | payer MEDICARE, MEDICAID, SELFPAY | DX: E53.8 Deficiency of other specified B group vitamins (principal) | CPT/HCPCS: 96372; J3420 ==

== ENCOUNTER 2025-06-01 10:04 | Outpatient (AMB) | payer MEDICARE, MEDICAID, SELFPAY ==
--- NOTE | 2025-06-01 10:11 | MHC.OFFVIS ---
Intake Visit Reasons: 1Y UA/PVR(set) Intake Note: Reason for Visit: 1Y Follow Up Urology Meds: Terazosin, Finasteride, Myrbetriq Blood Thinners: Aspirin Labs: A1C- 5.8 (01/27/2025) Imaging: None Last PVR: 0ml Assistant Project Manager Required: No Linter Drier Operator: Linter Drier Operator Present Accompanied by: bottle caser Allergies No Known Allergies (No Known Allergies*) Allergy (Verified 06/01/25 10:15) HPI Comments Details: Jose has a pleasant male. He is a patient of Dr. Castillo. Seen for the following urologic conditions - overactive bladder - incomplete bladder emptying BPH nursing home resident Here for yearly review On combination Myrbetriq, finasteride and terazosin Bladder control Has urinary urge but able to make bathroom Occasional accidents Twelve month follow-up Lower urinary tract symptoms - primarily overactive bladder with incomplete emptying Current medications include finasteride and Myrbetriq and terazosin Background insulin-dependent diabetes 0 HB A1c - 02/12 7.4% PFSH Medical History History of vitamin D deficiency Moderate to severe aortic stenosis Systolic murmur Diabetes mellitus, with long-term current use of insulin Impaired cognitive ability Anemia Nocturia Urinary urgency Weak urinary stream Incomplete emptying of bladder Vitamin D deficiency Encounter for general adult medical examination with abnormal findings Gait instability Alcohol-induced polyneuropathy Arthralgia Essential hypertension Dyslipidemia History of CVA with residual deficit Surgical History History of ventral hernia repair Hx of cholecystectomy Family History Father Unknown family medical history Mother Unknown family medical history Social History Housing: Assisted Living Facility Alcohol intake: never Patient Tobacco Use Status: Never used Tobacco e-Cigarette/Vaping Use: Never Used Second Hand Smoke Exposure: No Current occupational status: disabled Cognitive needs: No Hearing needs: Yes Vision needs: Yes Review of Systems Const Denies chills and Denies fever(s) Card Reports no additional complaints and Denies syncope Resp Denies cough GI Denies abdominal pain and Denies heartburn Reports as per HPI and Denies change in libido Neuro Denies syncope Psych Denies change in libido Endo Denies change in libido Physical Exam Const General: cooperative, healthy appearing, comfortable and no acute distress Orientation/consciousness: patient oriented x3 HEENT Face and sinus: Yes normal facial exam Mouth: moist mucous membranes Neck Neck: Yes normal visual inspection, Yes full ROM and Yes trachea midline Chest Chest palpation & inspection: normal inspection of the chest Resp Effort & Inspection: normal respiratory effort, able to speak in complete sentences and no respiratory distress GI Inspection: Yes normal to inspection Back/Spine/Pelvis Cervical Spine: normal cervical lordosis Thoracic/Lumbar Spine: thoracic and lumbar spine normal to inspection Skin General skin exam: no rashes or lesions noted Neuro General: patient oriented x3, gait normal, tone normal and moves all extremities Extrem General: Yes normal to inspection and Yes capillary refill normal Assessment & Plan Assessment & Plan (1) Overactive bladder: Code(s): N32.81 - Overactive bladder Category: Medical (2) Nocturia: Code(s): R35.1 - Nocturia Category: Medical (3) Incomplete emptying of bladder: Code(s): R33.9 - Retention of urine, unspecified Category: Medical Plan Continue current medications 12 month follow-up Patient Instructions: This note is constructed using voice recognition software. While every effort has been made to ensure accuracy business analyst manager errors may have been included. Imaging studies, laboratory and physical exam results were discussed and reviewed in detail. No major barriers to patient understanding were identified. An opportunity to ask questions regarding the treatment plan was provided. All questions were answered. The patient expressed understanding and agreement with the above treatment plan. The patient is aware they should contact our office by phone for worsening of their current condition or the appearance of new urologic symptoms. Compliance is encouraged with any medications and followup testing that is ordered. It is a privilege to participate in the urologic care of your patient. If you have any questions or concerns regarding treatment for the above conditions, or other urologic issues, please do not hesitate to contact me. The office telephone contact is [phone]. Sincerely, Dr Miles Sims MD, [facility] - Urology Compassionate Specialist Care for the Genitourinary System Coding Level of Care Code Est Pt Level 4 (55122) Add On Problem Visit Only Diagnoses Overactive bladder N32.81 Nocturia R35.1 Incomplete emptying of bladder R33.9
== END 2025-06-01 10:29 | disposition home or self-care (01) ==
LOC: HO.HUSH 10:05
PROVIDERS: Visit Provider Urology
DX: N32.81 Overactive bladder (principal); R35.1 Nocturia; R33.9 Retention of urine, unspecified
CPT/HCPCS: 99214; G2211

== ENCOUNTER → 2025-06-01 10:04 | Outpatient (BNVA) | payer MEDICARE, MEDICAID, SELFPAY | PROVIDERS: Visit Provider Urology | DX: N32.81 Overactive bladder (principal); R35.1 Nocturia; R33.9 Retention of urine, unspecified | CPT/HCPCS: 99212 ==

== ENCOUNTER → 2025-06-22 13:09 | Outpatient (BNV) | payer MEDICARE, MEDICAID, SELFPAY | PROVIDERS: Emergency Provider Emergency Medicine Emergency Medical Services; Visit Provider Radiology Diagnostic Radiology | DX: R53.1 Weakness (principal); I67.82 Cerebral ischemia; R90.82 White matter disease, unspecified; I95.9 Hypotension, unspecified | CPT/HCPCS: 70450; 71045 ==

== ENCOUNTER → 2025-06-22 13:09 | Outpatient (BNV) | payer MEDICARE, MEDICAID, SELFPAY | PROVIDERS: Admitting Provider Physician Assistant; Emergency Provider Emergency Medicine Emergency Medical Services; Visit Provider Internal Medicine | DX: R41.82 Altered mental status, unspecified (principal) | CPT/HCPCS: 93010 ==

== ENCOUNTER → 2025-06-22 20:52 | Outpatient (BNV) | payer MEDICARE, MEDICAID, SELFPAY | PROVIDERS: Admitting Provider Physician Assistant; Emergency Provider Emergency Medicine Emergency Medical Services; Visit Provider Internal Medicine | DX: R78.81 Bacteremia (principal) | CPT/HCPCS: 99232 ==

== ENCOUNTER → 2025-06-22 20:52 | Outpatient (BNV) | payer MEDICARE, MEDICAID, SELFPAY | PROVIDERS: Admitting Provider Physician Assistant; Emergency Provider Emergency Medicine Emergency Medical Services; Visit Provider Physician Assistant | DX: N17.9 Acute kidney failure, unspecified (principal); E86.0 Dehydration; E87.21 Acute metabolic acidosis; E83.42 Hypomagnesemia; N30.90 Cystitis, unspecified without hematuria | CPT/HCPCS: 99222; 99233; 99499 ==